=== PATIENT | female | born 2000 | race Caucasian/White ===

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

== ENCOUNTER → 2018-05-23 | Outpatient (CLI) | payer BC ==
[2018-05-23 16:23] LABS: BASO % 0.2 %; BASO ABS # 0.02 K/uL (0-0.2); EOS % 0.6 %; EOS ABS # 0.08 K/uL (0-0.5); HEMATOCRIT 36.1 % (37-47); HEMOGLOBIN 12.7 g/dL (12.0-16.0); IG# 0.06 K/uL (0.00-0.02); LYMPH ABS # 1.62 K/uL (1.2-3.4); MEAN CORPUSCULAR HEMOGLOBIN 30.6 pg (25-34); MEAN CORPUSCULAR HGB CONC 35.2 g/dl (32-36); MEAN PLATELET VOLUME 9.8 fL (7.4-10.4); MONO % 5.7 %; MONO ABS # 0.71 K/uL (0.11-0.59); NEUT ABS # 9.96 K/uL (1.4-6.5); PLATELET COUNT 315 K/uL (130-400); RED CELL DISTRIBUTION WIDTH CV 13.4 % (11.5-14.5); RED CELL DISTRIBUTION WIDTH SD 42.9 fL (36.4-46.3); WHITE BLOOD COUNT 12.45 K/uL (4.8-10.8)
== END | disposition home or self-care (01) ==
LOC: C.LAB1850 13:42
PROVIDERS: ATTEND Obstetrics & Gynecology
DX: Z34.02 Encounter for supervision of normal first pregnancy, second trimester (principal); N76.0 Acute vaginitis

== ENCOUNTER 2018-10-15 07:06 | Inpatient (IN) ==
[2018-10-15] MEDS ORDERED: LACTATED RINGER'S 1,000 ML IV PRN ×3 (08:29→11:23)
[2018-10-15] MEDS ORDERED: LACTATED RINGER'S 1,000 ML IV SCH ×2 (08:30→09:00)
[2018-10-15] MEDS ORDERED: OXYTOCIN 30 UNITS/500 ML BAG IV PRN ×2 (08:48→15:05)
[2018-10-15] MEDS ORDERED: PENICILLIN G POTASSIUM 6 MU in DEXTROSE 5% 250 ML IV STA (08:48)
[2018-10-15 08:52] LABS: Hematocrit (blood only) 37.5 % (37-47); Hemoglobin 13.2 g/dL (12.0-16.0); Mean Corpuscular Volume 87.8 fL (80-100); Mean Platelet Volume 10.9 fL (7.4-10.4); Platelet Count 287 K/uL (130-400); RDW Coefficient of Variation 13.5 % (11.5-14.5); Red Blood Count 4.27 M/uL (4.2-5.4); White Blood Count 11.15 K/uL (4.8-10.8)
[2018-10-15 08:53] LABS: Mean Corpuscular Hgb Conc 35.2 g/dL (32-36)
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
[2018-10-15] MEDS: NITROFURANTOIN MONOHYDRATE 100 MG CAP PO SCH ×2 (10:17→21:05)
[2018-10-15] MEDS ORDERED: BUPIVACAINE 0.25% 30 ML VIAL ONE (10:21)
[2018-10-15] MEDS ORDERED: ePHEDrine sulfate 50 MG/ML AMP ONE (10:22)
[2018-10-15] MEDS ORDERED: fentaNYL citrate 100 MCG/2 ML VIAL ONE (10:22)
[2018-10-15] MEDS ORDERED: fentaNYL 2MCG/ML ROPIV 1.25MG/ML 100 ML BAG EPI ONE (10:23)
[2018-10-15] MEDS ORDERED: NALOXONE HCL 1 MG in SODIUM CHLORIDE 0.9% 1000ML 1,000 ML IV PRN (11:23)
[2018-10-15] MEDS ORDERED: DiphenhydrAMINE HCL 50 MG/ML VIAL IV PRN (11:23)
[2018-10-15] MEDS ORDERED: NALOXONE HCL 0.4 MG/1 ML VIAL/CARP IV PRN (11:23)
[2018-10-15] MEDS ORDERED: ONDANSETRON INJ 2 MG/ML 2 ML VIAL IV PRN (11:23)
[2018-10-15] MEDS ORDERED: ePHEDrine sulfate 50 MG/ML AMP IV PRN (11:23)
[2018-10-15] MEDS ORDERED: NALBUPHINE HCL INJ 10 MG/ML AMP IV PRN (11:23)
[2018-10-15] MEDS ORDERED: fentaNYL 2MCG/ML ROPIV 1.25MG/ML 100 ML BAG EPI PRN (11:23)
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
[2018-10-15] MEDS ORDERED: PENICILLIN G POTASSIUM 3 MU in DEXTROSE 5% 100 ML IV PRN (13:00)
[2018-10-15] MEDS ORDERED: BENZOCAINE 20% AER SPR 82.5 GM CAN EXT PRN (15:05)
[2018-10-15] MEDS ORDERED: OXYCODONE/ACETAMINOPHEN 5mg/325mg TAB PO PRN (15:05)
[2018-10-15] MEDS ORDERED: HYDROCORTISONE ACETATE 25 MG SUPP PR PRN (15:05)
[2018-10-15] MEDS ORDERED: SUPERCREAM 0.870% 15 GM JAR EXT PRN (15:05)
[2018-10-15] MEDS ORDERED: DIPHTHERIA/TETANUS/PERTUSSIS 0.5 ML SYR/VIAL IM ONE (15:05)
[2018-10-15] MEDS ORDERED: ACETAMINOPHEN 325 MG TAB PO PRN (15:05)
--- NOTE | 2018-10-15 15:15 | Delivery Summary ---
DATE OF OPERATION: 10/15/2018 The patient presented to labor and delivery in the morning of October 15, 2017. At that stage she was 5 cm, received an epidural. The patient has had poor care and no recent group B strep done so the patient was started on antibiotics by Dr. Manning. She received an epidural and then spontaneously ruptured membranes on her own. She delivered without difficulty with the baby in occiput anterior position. Loose nuchal cord passed over the head, fluid was clear, no excessive forced used. Live infant, required some initial resuscitation but then vigorous. Cord had been clamped and cut. Cord gases obtained. Cord blood obtained. Placenta removed with traction. IV Pitocin started. Small first degree tear repaired with 3-0 Vicryl. Estimated blood loss 250 mL. Sponge and instrument counts correct. I attest to the content of the Intraoperative Record and any orders documented therein. Any exception s are noted below.
[2018-10-15 15:59] LABS: Base Excess Cord Arterial Bld -3.3 mEq/L (-9-1.8); CO2 Cord Arterial Blood 66 mmHg (39.1-73.5); HCO3 Cord Arterial Blood 27 mmol/L (19.7-28.5); pH Cord Arterial Blood 7.22 (7.1-7.38)
[2018-10-15 16:03] LABS: Base Excess Cord Venous Blood -2.9 mEq/L (-7.7-1.9); Cord Venous Blood HCO3 25 mmol/L (18.4-26.8); Cord Venous Blood PCO2 51 mmHg (30.4-57.2); Cord Venous Blood PO2 19 mmHg (14.1-43.3)
[2018-10-15 16:05] LABS: O2 Saturation Cord Venous Bld < 60.0 % (<68)
--- NOTE | 2018-10-15 16:29 | Anesthesia Procedure Note ---
Date of Service October 15, 2018 Anesthesia Post Epidural Note Vital Signs Vital Signs: Temp Pulse Resp BP Pulse Ox 10/15/18 16:19 88 142/90 H 10/15/18 16:04 75 142/84 H 10/15/18 15:49 64 151/83 H 10/15/18 15:35 73 143/81 H 10/15/18 15:04 75 142/95 H 10/15/18 14:54 103 H 135/96 100 10/15/18 14:49 101 H 92 10/15/18 14:44 80 80 L 10/15/18 14:40 82 92 10/15/18 14:39 77 100 10/15/18 14:34 93 H 100 10/15/18 14:29 83 100 10/15/18 14:25 124/72 10/15/18 14:24 81 99 10/15/18 14:23 79 86 L 10/15/18 14:19 80 100 10/15/18 14:15 37.2 C 20 10/15/18 14:14 76 100 10/15/18 14:10 79 123/73 10/15/18 14:09 88 85 L 10/15/18 14:04 81 100 10/15/18 13:59 80 100 10/15/18 13:54 76 137/85 98 10/15/18 13:49 75 100 10/15/18 13:45 20 10/15/18 13:44 72 100 10/15/18 13:41 72 143/87 H 10/15/18 13:39 76 135/106 H 100 10/15/18 13:34 78 100 10/15/18 13:29 83 20 100 10/15/18 13:25 86 110/89 10/15/18 13:24 86 100 10/15/18 13:19 83 100 10/15/18 13:15 20 10/15/18 13:14 85 100 10/15/18 13:09 88 126/79 100 10/15/18 13:04 82 100 10/15/18 12:59 92 H 20 100 10/15/18 12:54 77 136/86 100 10/15/18 12:49 77 100 10/15/18 12:45 20 10/15/18 12:44 86 100 10/15/18 12:39 75 136/88 100 10/15/18 12:34 83 100 10/15/18 12:30 20 10/15/18 12:29 86 100 10/15/18 12:26 76 140/85 10/15/18 12:24 74 100 10/15/18 12:19 80 100 10/15/18 12:15 36.5 C 20 10/15/18 12:14 72 100 10/15/18 12:10 89 91 10/15/18 12:09 80 128/83 100 10/15/18 12:04 70 100 10/15/18 12:00 20 10/15/18 11:59 86 20 100 10/15/18 11:54 75 100 10/15/18 11:52 72 126/76 10/15/18 11:50 86 130/73 10/15/18 11:49 72 100 10/15/18 11:48 70 136/85 10/15/18 11:46 75 129/83 10/15/18 11:45 20 10/15/18 11:44 70 130/81 100 10/15/18 11:42 71 138/81 10/15/18 11:40 68 126/69 10/15/18 11:39 70 100 10/15/18 11:38 62 135/69 10/15/18 11:36 61 138/71 10/15/18 11:34 77 148/71 H 100 10/15/18 11:32 71 144/81 H 10/15/18 11:30 86 20 137/78 10/15/18 11:29 80 100 10/15/18 11:28 50 L 136/83 10/15/18 11:26 88 134/78 10/15/18 11:24 82 135/73 99 10/15/18 11:22 90 124/74 10/15/18 11:20 75 127/70 10/15/18 11:19 83 100 10/15/18 11:18 77 123/73 10/15/18 11:16 75 130/74 10/15/18 11:15 20 10/15/18 11:14 83 123/66 100 10/15/18 11:09 77 100 10/15/18 11:04 91 H 100 10/15/18 10:59 97 H 100 10/15/18 10:54 76 100 10/15/18 10:50 74 139/90 10/15/18 07:20 36.5 C 72 20 134/88 Notes Mental Status: alert / awake / arousable Nausea / Vomiting: adequately controlled Pain: adequately controlled Airway Patency, RR, SpO2: stable & adequate BP & HR: stable & adequate Hydration State: stable & adequate Anesthetic Complications: no major complications apparent Epidural: Removed without complications and With tip intact
[2018-10-15] MEDS: DOCUSATE SODIUM 100 MG CAP PO SCH (22:21)
[2018-10-15] MEDS: IBUPROFEN 600 MG TAB PO PRN (23:24)
--- NOTE | 2018-10-16 07:35 | Obstetrical Progress Note ---
Date of Service October 16, 2018 day #1 vaginal delivery patient doing well minimal bleeding no pain beyond the typical pains no extremity pain Assessment & Plan (1) Normal labor: Continue current care Physical Exam Vital Signs (Past 24 Hours) Last Vital Signs Temp 36.5 C 10/16/18 04:50 Pulse 75 10/16/18 04:50 Resp 20 10/16/18 04:50 BP 136/82 10/16/18 04:50 Pulse Ox 100 10/16/18 04:50 Uterus nontender extremity exam negative minimal bleeding uterus firm
[2018-10-16 08:08] LABS: Hematocrit (blood only) 35.1 % (37-47); Hemoglobin 11.7 g/dL (12.0-16.0); Mean Corpuscular Hgb Conc 33.3 g/dL (32-36); Mean Corpuscular Volume 88.4 fL (80-100); Mean Platelet Volume 10.8 fL (7.4-10.4); Platelet Count 228 K/uL (130-400); RDW Coefficient of Variation 13.7 % (11.5-14.5); RDW Standard Deviation 44.3 fL (36.4-46.3); Red Blood Count 3.97 M/uL (4.2-5.4)
[2018-10-16] MEDS: PRENATAL VITAMIN 1 TAB PO SCH (09:23)
[2018-10-16] MEDS: NITROFURANTOIN MONOHYDRATE 100 MG CAP PO SCH ×2 (09:23→20:20)
[2018-10-16] MEDS: DOCUSATE SODIUM 100 MG CAP PO SCH ×2 (09:23→20:20)
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
[2018-10-16] MEDS ORDERED: BISACODYL 5 MG TABEC PO SCH (20:00)
[2018-10-16] MEDS: IBUPROFEN 600 MG TAB PO PRN (20:20)
[2018-10-16] MEDS ORDERED: risperiDONE 1 MG TABLET PO SCH (21:00)
[2018-10-17 07:20] LABS: Hemoglobin 11.5 g/dL (12.0-16.0)
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
[2018-10-17] MEDS ORDERED: BISACODYL 10 MG SUPP PR PRN (09:00)
[2018-10-17] MEDS: PRENATAL VITAMIN 1 TAB PO SCH (09:19)
[2018-10-17] MEDS: DOCUSATE SODIUM 100 MG CAP PO SCH (09:19)
[2018-10-17] MEDS: NITROFURANTOIN MONOHYDRATE 100 MG CAP PO SCH (09:40)
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
[2018-10-17] MEDS: IBUPROFEN 600 MG TAB PO PRN (16:26)
== END 2018-10-17 18:35 | disposition home or self-care (01) | DRG 806 ==
LOC: OPB 07:06 → 4S1 07:11 → 4S2 18:06

== ENCOUNTER 2018-10-23 15:46 | Observation (INO) ==
[2018-10-23 17:18] LABS: Basophils # (auto) 0.06 K/uL (0-0.2); Basophils % (auto) 0.6 %; Eosinophils # (auto) 0.21 K/uL (0-0.5); Eosinophils % (auto) 2.1 %; Hematocrit (blood only) 42.4 % (37-47); Hemoglobin 14.6 g/dL (12.0-16.0); Immature Granulocytes # (auto) 0.05 K/uL (0.00-0.02); Immature Granulocytes % (auto) 0.5 %; Lymphocytes # (auto) 2.27 K/uL (1.2-3.4); Lymphocytes % (auto) 22.5 %; Mean Corpuscular Hgb Conc 34.4 g/dL (32-36); Mean Corpuscular Volume 89.1 fL (80-100); Mean Platelet Volume 9.9 fL (7.4-10.4); Monocytes # (auto) 0.76 K/uL (0.11-0.59); Monocytes % (auto) 7.5 %; Neutrophils # (auto) 6.75 K/uL (1.4-6.5); Neutrophils % (auto) 66.8 %; Platelet Count 454 K/uL (130-400); RDW Coefficient of Variation 13.1 % (11.5-14.5); RDW Standard Deviation 42.8 fL (36.4-46.3); Red Blood Count 4.76 M/uL (4.2-5.4)
[2018-10-23 17:39] LABS: Albumin Level 3.5 gm/dl (3.4-5.0); BUN Creatinine Ratio 14.4 (10-20); Calcium 9.7 mg/dl (8.5-10.1); Creatinine Clr Calc Pharmacy 106.4 ml/min; Est GFR (African American) 119.4; Potassium 3.8 mmol/L (3.5-5.1)
[2018-10-23 17:44] LABS: Acetaminophen < 2 ug/ml (10-30); Salicylate < 1.7 mg/dl (2.8-20)
[2018-10-23 17:48] LABS: Albumin Globulin Ratio 0.6 (0.9-2); Bilirubin,Total 0.3 mg/dl (0.2-1); Globulin 5.5 gm/dl (2.5-4.0)
[2018-10-23 18:10] LABS: Appearance Urine Clear (Clear); Bacteria Urine Automated Negative (Negative); Bilirubin Urine Negative (Negative); Color Urine Yellow; Epithelial Cell Urine Auto 20-30 /lpf (0-5); Glucose Urine UA Negative (Negative); Ketones Urine Negative (Negative); Leukocyte Esterase Urine 2+ (Negative); Nitrite Urine Negative (Negative); Protein Urine Negative (Negative); Specific Gravity Urine 1.016 (1.000-1.030); Urobilinogen Urine Negative (Negative); pH Urine 5.5 (4.5-7.5)
[2018-10-23 18:48] LABS: Amphetamines+Metham, Urine Neg (Neg); Barbiturates, Urine Neg (Neg); Benzodiazepine, Urine Neg (Neg); Cocaine, Urine Neg (Neg); MDMA (Ecstacy), Urine Neg (Neg); Methadone, Urine Neg (Neg); Opiate, Urine Neg (Neg); Phencyclidine, Urine Neg (Neg)
--- NOTE | 2018-10-23 20:01 | Emergency Department Note ---
Entered by Hans Mccullough acting as a scribe for Laura Sparrow DO History of Present Illness General Chief complaint: Mental Health Evaluation Stated complaint: MENTAL HEALTH EVAL Time Seen by Provider: 10/23/18 15:54 Source: patient and other (nursing staff) History of Present Illness Onset (ago): day(s) (self-harm sometime after last visit a few days ago) Location: head (psychiatric) Quality: + other (psychosis and self-harm) Associated symptoms: + other (gave 4-5 days ago; history of schizoaffective disorder; hitting herself and pulling out hair); no headaches The patient is a 18 year old female with schizoaffective disorder who presents to the Emergency Room with psychosis and self-harm. Nursing staff report that the patient was seen here last week on a 302 order, but the 302 was denied and she was sent home. They state that the patient recently gave and is now four or five days . They report that she is now hitting herself and pulling out her hair, stating that she cannot finish sentences and appears to be responding to internal stimuli. They note that the patient was not harming herself a few days ago. The patient reports that she is still experiencing bleeding from recently giving but denies cramping or other pain. She does admit to hitting herself on the head, denies LOC, and she reports some numbness but denies a headache. Home Medications Home Medications Medication Instructions Recorded Confirmed Type No Known Home Medications 10/23/18 10/23/18 History Allergies Allergy/AdvReac Type Severity Reaction Status Date / Time No Known Allergies Allergy Verified 10/23/18 21:25 Past Med/Surg History Social History marital status: Single Current Living Situation: Significant Other Current Living Situation Comment: FOB, FOB's mom and FOB's 2 brothers Other Information That Helps Us Care for You: Yes (psych history) Feels Safe at Home: No Is there a partner from a previous relationship who is making you feel unsafe now?: No Smoking Status: Unknown if ever smoked Beliefs That Will Affect Care: None Communication Ability: Effective Review of Systems See HPI for pertinent positives & negatives. and A total of 10 systems reviewed and were otherwise negative Physical Exam Vital Signs Vital Signs - 24 hr 10/24/18 07:23 10/24/18 15:18 10/25/18 00:00 Temperature 36.4 C L 36.7 C 36.7 C Temperature Source Oral Oral Oral Pulse Rate [Finger] 60 100 H 72 Respiratory Rate 16 19 18 Respiratory Depth Normal Normal Blood Pressure [Right Arm] 102/62 107/66 91/50 L Blood Pressure Mean [Right Arm] 75 79 63 Blood Pressure Position [Right Arm] Lying Lying Lying Pulse Oximetry 98 97 97 Oxygen Delivery Method Room Air Room Air Room Air GENERAL: tearful, flat affect, poor eye contact EYE EXAM: normal conjunctiva, PERRL and EOM's grossly intact OROPHARYNX: no exudate, no erythema, lips, buccal mucosa, and tongue normal and mucous membranes are moist NECK: supple, no nuchal rigidity, no adenopathy, non-tender LUNGS: Clear to auscultation. Normal chest wall mechanics, no w/r/r HEART: no murmurs, S1 normal and S2 normal ABDOMEN: abdomen soft, non-tender, normo-active bowel sounds, no masses, no rebound or guarding. BACK: Back is symmetrical on inspection and there is no deformity, no midline tenderness, no CVA tenderness. SKIN: no rashes and no bruising UPPER EXTREMITIES: upper extremities are grossly normal. LOWER EXTREMITIES: No pitting edema. FROM, nml pulses b/l. NEURO EXAM: Normal sensorium, cranial nerves II-XII grossly intact, normal speech, no gross weakness of arms, no gross weakness of legs. No drift. Finger to nose intact. Gross sensation intact. PSYCH: Tearful, flat affect, poor eye contact. Admits to thoughts of hurting herself. Denies thoughts of hurting her baby or anyone else. Admits to paranoia. Denies hallucinations. Course 155: Past medical records reviewed. The patient was evaluated in room A8, and a complete history and physical examination were performed. 2029: The patient's 302 has been completed. 2115: I discussed the patient's case with Dr. Autumn Bob OB-PHONE SPECIALIST. Agrees doesn't appear to be eclampsia, however LFT's are still elevated than would be expected post . 2139: Discussed case with Dr. Curtis, not in any hospitalist. Consultations Consultation #1: I consulted Dr. Autumn Vasquezy OB-PHONE SPECIALIST. Time: 21:16 Consultation #2: Discussed with Dr. Curtis. Time: 21:40 Administered Medications Enoxaparin Sodium (Lovenox) 40 mg SQ Q24H HENRIK Stop: 11/23/18 08:59 Last Admin: 10/24/18 11:46 Dose: Not Given Risperidone (Risperdal) 1 mg PO HS HENRIK Stop: 11/23/18 20:59 Last Admin: 10/24/18 20:07 Dose: 1 mg Risperidone (Risperdal M) 0.5 mg PO QAM HENRIK Stop: 11/23/18 11:14 Last Admin: 10/24/18 11:41 Dose: 0.5 mg Discontinued Medications Acetaminophen (Tylenol) Confirm Administered Dose 650 mg .ROUTE .STK-MED ONE Stop: 10/23/18 23:12 Last Admin: 10/23/18 23:17 Dose: 650 mg Influenza Virus Vaccine Quadrival (Flucelvax Quad Vaccine) 0.5 ml IM .ONCE ONE Stop: 10/24/18 06:46 Last Admin: 10/24/18 13:26 Dose: 0.5 ml Medroxyprogesterone Acetate (Depo-Provera Contraceptive) 150 mg IM NOW ONE Stop: 10/24/18 11:31 Last Admin: 10/24/18 11:44 Dose: 150 mg Medical Decision Making Differential Diagnosis Differential diagnosis: Etiologies such as mood disorder, infection, hypoglycemia, electrolyte abnormalities, cardiac sources, intracerebral event, toxicologic, neurologic, as well as others were entertained. Medical Records Attestation: I reviewed the patient's medical records. Home Medications Current Medication List: was personally reviewed by me Laboratory Data Attestation: I reviewed the patient's lab results. Result diagrams: 10/24/18 07:18 10/24/18 07:18 Lab Results 10/23/18 10/23/18 10/23/18 Range/Units 16:39 16:39 16:39 WBC 10.10 (4.8-10.8) K/uL RBC 4.76 (4.2-5.4) M/uL Hgb 14.6 (12.0-16.0) g/dL Hct 42.4 (37-47) % MCV 89.1 (80-100) fL MCH 30.7 (25-34) pg MCHC 34.4 (32-36) g/dL RDW Std Deviation 42.8 (36.4-46.3) fL RDW Coeff of Marlyn 13.1 (11.5-14.5) % Plt Count 454 H (130-400) K/uL MPV 9.9 (7.4-10.4) fL Immature Gran % (Auto) 0.5 % Neut % (Auto) 66.8 % Lymph % (Auto) 22.5 % Cassia % (Auto) 7.5 % Eos % (Auto) 2.1 % Baso % (Auto) 0.6 % Immature Gran # (Auto) 0.05 H (0.00-0.02) K/uL Neut # (Auto) 6.75 H (1.4-6.5) K/uL Lymph # (Auto) 2.27 (1.2-3.4) K/uL Cassia # (Auto) 0.76 H (0.11-0.59) K/uL Eos # (Auto) 0.21 (0-0.5) K/uL Baso # (Auto) 0.06 (0-0.2) K/uL PT (9.0-12.0) Seconds INR (0.9-1.1) Sodium 136 (136-145) mmol/L Potassium 3.8 (3.5-5.1) mmol/L Chloride 103 (98-107) mmol/L Carbon Dioxide 23 (21-32) mmol/L Anion Gap 10.0 (3-11) BUN 12 (7-18) mg/dl Creatinine 0.82 (0.6-1.2) mg/dl Est Cr Clr Drug Dosing 106.4 ml/min Est GFR ( Amer) 119.4 Est GFR (Non-Af Amer) 103.0 BUN/Creatinine Ratio 14.4 (10-20) Glucose 75 (70-99) mg/dl Calcium 9.7 (8.5-10.1) mg/dl Phosphorus (2.5-4.9) mg/dl Magnesium (1.8-2.4) mg/dl Total Bilirubin 0.3 (0.2-1) mg/dl Direct Bilirubin (0-0.2) mg/dl AST 82 H (15-37) U/L ALT 558 H (12-78) U/L Alkaline Phosphatase 203 H (45-117) U/L Ammonia (11-32) umol/L Total Protein 9.0 H (6.4-8.2) gm/dl Albumin 3.5 (3.4-5.0) gm/dl Globulin 5.5 H (2.5-4.0) gm/dl Albumin/Globulin Ratio 0.6 L (0.9-2) TSH 1.220 (0.300-4.500) uIu/ml Urine Color Urine Appearance (Clear) Urine pH (4.5-7.5) Ur Specific Chandler (1.000-1.030) Urine Protein (Negative) Urine Glucose (UA) (Negative) Urine Ketones (Negative) Urine Blood (Negative) Urine Nitrite (Negative) Urine Bilirubin (Negative) Urine Urobilinogen (Negative) Ur Leukocyte Esterase (Negative) Urine WBC (Auto) (0-5) /hpf Urine RBC (Auto) (0-4) /hpf U Hyaline Cast (Auto) (0-5) /lpf U Epithel Cells (Auto) (0-5) /lpf Urine Bacteria (Auto) (Negative) POC Ur Test (NEG) Salicylates < 1.7 L (2.8-20) mg/dl Urine Opiates Screen (Neg) Ur Methadone, Qual (Neg) Acetaminophen < 2 L (10-30) ug/ml Urine Barbiturates (Neg) Ur Phencyclidine (PCP) (Neg) U Amphetamin/Meth Scrn (Neg) MDMA (Ecstasy) Screen (Neg) U Benzodiazepines Scrn (Neg) Ur Cocaine Metabolite (Neg) U Marijuana (THC) Screen (Neg) Ethyl Alcohol mg/dL (0-3) mg/dl Hepatitis A IgM Ab (NON-REACTIVE) Hep Bs Antigen (Neg) Hep B Core IgM Ab (NON-REACTIVE) Hepatitis C Antibody (Neg) 10/23/18 10/23/18 10/23/18 Range/Units 16:39 17:45 17:45 WBC (4.8-10.8) K/uL RBC (4.2-5.4) M/uL Hgb (12.0-16.0) g/dL Hct (37-47) % MCV (80-100) fL MCH (25-34) pg MCHC (32-36) g/dL RDW Std Deviation (36.4-46.3) fL RDW Coeff of Marlyn (11.5-14.5) % Plt Count (130-400) K/uL MPV (7.4-10.4) fL Immature Gran % (Auto) % Neut % (Auto) % Lymph % (Auto) % Cassia % (Auto) % Eos % (Auto) % Baso % (Auto) % Immature Gran # (Auto) (0.00-0.02) K/uL Neut # (Auto) (1.4-6.5) K/uL Lymph # (Auto) (1.2-3.4) K/uL Cassia # (Auto) (0.11-0.59) K/uL Eos # (Auto) (0-0.5) K/uL Baso # (Auto) (0-0.2) K/uL PT (9.0-12.0) Seconds INR (0.9-1.1) Sodium (136-145) mmol/L Potassium (3.5-5.1) mmol/L Chloride (98-107) mmol/L Carbon Dioxide (21-32) mmol/L Anion Gap (3-11) BUN (7-18) mg/dl Creatinine (0.6-1.2) mg/dl Est Cr Clr Drug Dosing ml/min Est GFR ( Amer) Est GFR (Non-Af Amer) BUN/Creatinine Ratio (10-20) Glucose (70-99) mg/dl Calcium (8.5-10.1) mg/dl Phosphorus (2.5-4.9) mg/dl Magnesium (1.8-2.4) mg/dl Total Bilirubin (0.2-1) mg/dl Direct Bilirubin (0-0.2) mg/dl AST (15-37) U/L ALT (12-78) U/L Alkaline Phosphatase (45-117) U/L Ammonia (11-32) umol/L Total Protein (6.4-8.2) gm/dl Albumin (3.4-5.0) gm/dl Globulin (2.5-4.0) gm/dl Albumin/Globulin Ratio (0.9-2) TSH (0.300-4.500) uIu/ml Urine Color Yellow Urine Appearance Clear (Clear) Urine pH 5.5 (4.5-7.5) Ur Specific Chandler 1.016 (1.000-1.030) Urine Protein Negative (Negative) Urine Glucose (UA) Negative (Negative) Urine Ketones Negative (Negative) Urine Blood 2+ H (Negative) Urine Nitrite Negative (Negative) Urine Bilirubin Negative (Negative) Urine Urobilinogen Negative (Negative) Ur Leukocyte Esterase 2+ H (Negative) Urine WBC (Auto) 10-30 H (0-5) /hpf Urine RBC (Auto) 0-4 (0-4) /hpf U Hyaline Cast (Auto) 1-5 (0-5) /lpf U Epithel Cells (Auto) 20-30 H (0-5) /lpf Urine Bacteria (Auto) Negative (Negative) POC Ur Test (NEG) Salicylates (2.8-20) mg/dl Urine Opiates Screen Neg (Neg) Ur Methadone, Qual Neg (Neg) Acetaminophen (10-30) ug/ml Urine Barbiturates Neg (Neg) Ur Phencyclidine (PCP) Neg (Neg) U Amphetamin/Meth Scrn Neg (Neg) MDMA (Ecstasy) Screen Neg (Neg) U Benzodiazepines Scrn Neg (Neg) Ur Cocaine Metabolite Neg (Neg) U Marijuana (THC) Screen Neg (Neg) Ethyl Alcohol mg/dL < 3.0 (0-3) mg/dl Hepatitis A IgM Ab (NON-REACTIVE) Hep Bs Antigen (Neg) Hep B Core IgM Ab (NON-REACTIVE) Hepatitis C Antibody (Neg) 10/23/18 10/23/18 10/23/18 Range/Units 17:52 23:06 23:06 WBC (4.8-10.8) K/uL RBC (4.2-5.4) M/uL Hgb (12.0-16.0) g/dL Hct (37-47) % MCV (80-100) fL MCH (25-34) pg MCHC (32-36) g/dL RDW Std Deviation (36.4-46.3) fL RDW Coeff of Marlyn (11.5-14.5) % Plt Count (130-400) K/uL MPV (7.4-10.4) fL Immature Gran % (Auto) % Neut % (Auto) % Lymph % (Auto) % Cassia % (Auto) % Eos % (Auto) % Baso % (Auto) % Immature Gran # (Auto) (0.00-0.02) K/uL Neut # (Auto) (1.4-6.5) K/uL Lymph # (Auto) (1.2-3.4) K/uL Cassia # (Auto) (0.11-0.59) K/uL Eos # (Auto) (0-0.5) K/uL Baso # (Auto) (0-0.2) K/uL PT (9.0-12.0) Seconds INR (0.9-1.1) Sodium (136-145) mmol/L Potassium (3.5-5.1) mmol/L Chloride (98-107) mmol/L Carbon Dioxide (21-32) mmol/L Anion Gap (3-11) BUN (7-18) mg/dl Creatinine (0.6-1.2) mg/dl Est Cr Clr Drug Dosing ml/min Est GFR ( Amer) Est GFR (Non-Af Amer) BUN/Creatinine Ratio (10-20) Glucose (70-99) mg/dl Calcium (8.5-10.1) mg/dl Phosphorus (2.5-4.9) mg/dl Magnesium (1.8-2.4) mg/dl Total Bilirubin (0.2-1) mg/dl Direct Bilirubin (0-0.2) mg/dl AST (15-37) U/L ALT (12-78) U/L Alkaline Phosphatase (45-117) U/L Ammonia (11-32) umol/L Total Protein (6.4-8.2) gm/dl Albumin (3.4-5.0) gm/dl Globulin (2.5-4.0) gm/dl Albumin/Globulin Ratio (0.9-2) TSH (0.300-4.500) uIu/ml Urine Color Urine Appearance (Clear) Urine pH (4.5-7.5) Ur Specific Chandler (1.000-1.030) Urine Protein (Negative) Urine Glucose (UA) (Negative) Urine Ketones (Negative) Urine Blood (Negative) Urine Nitrite (Negative) Urine Bilirubin (Negative) Urine Urobilinogen (Negative) Ur Leukocyte Esterase (Negative) Urine WBC (Auto) (0-5) /hpf Urine RBC (Auto) (0-4) /hpf U Hyaline Cast (Auto) (0-5) /lpf U Epithel Cells (Auto) (0-5) /lpf Urine Bacteria (Auto) (Negative) POC Ur Test NEG (NEG) Salicylates (2.8-20) mg/dl Urine Opiates Screen (Neg) Ur Methadone, Qual (Neg) Acetaminophen (10-30) ug/ml Urine Barbiturates (Neg) Ur Phencyclidine (PCP) (Neg) U Amphetamin/Meth Scrn (Neg) MDMA (Ecstasy) Screen (Neg) U Benzodiazepines Scrn (Neg) Ur Cocaine Metabolite (Neg) U Marijuana (THC) Screen (Neg) Ethyl Alcohol mg/dL (0-3) mg/dl Hepatitis A IgM Ab NON-REACTIVE (NON-REACTIVE) Hep Bs Antigen Neg (Neg) Hep B Core IgM Ab NON-REACTIVE (NON-REACTIVE) Hepatitis C Antibody Neg (Neg) 10/24/18 10/24/18 10/24/18 Range/Units 07:18 07:18 07:18 WBC 7.98 (4.8-10.8) K/uL RBC 4.23 (4.2-5.4) M/uL Hgb 12.6 (12.0-16.0) g/dL Hct 37.2 (37-47) % MCV 87.9 (80-100) fL MCH 29.8 (25-34) pg MCHC 33.9 (32-36) g/dL RDW Std Deviation 42.2 (36.4-46.3) fL RDW Coeff of Marlyn 13.1 (11.5-14.5) % Plt Count 350 (130-400) K/uL MPV 9.8 (7.4-10.4) fL Immature Gran % (Auto) 0.8 % Neut % (Auto) 53.7 % Lymph % (Auto) 33.3 % Cassia % (Auto) 8.0 % Eos % (Auto) 3.6 % Baso % (Auto) 0.6 % Immature Gran # (Auto) 0.06 H (0.00-0.02) K/uL Neut # (Auto) 4.28 (1.4-6.5) K/uL Lymph # (Auto) 2.66 (1.2-3.4) K/uL Cassia # (Auto) 0.64 H (0.11-0.59) K/uL Eos # (Auto) 0.29 (0-0.5) K/uL Baso # (Auto) 0.05 (0-0.2) K/uL PT 10.5 (9.0-12.0) Seconds INR 1.0 (0.9-1.1) Sodium 136 (136-145) mmol/L Potassium 3.6 (3.5-5.1) mmol/L Chloride 105 (98-107) mmol/L Carbon Dioxide 24 (21-32) mmol/L Anion Gap 7.0 (3-11) BUN 9 (7-18) mg/dl Creatinine 0.79 (0.6-1.2) mg/dl Est Cr Clr Drug Dosing 110.3 ml/min Est GFR ( Amer) 124.9 Est GFR (Non-Af Amer) 107.8 BUN/Creatinine Ratio 11.4 (10-20) Glucose 78 (70-99) mg/dl Calcium 9.0 (8.5-10.1) mg/dl Phosphorus 4.1 (2.5-4.9) mg/dl Magnesium 1.9 (1.8-2.4) mg/dl Total Bilirubin 0.6 (0.2-1) mg/dl Direct Bilirubin 0.2 (0-0.2) mg/dl AST 56 H (15-37) U/L ALT 395 H (12-78) U/L Alkaline Phosphatase 162 H (45-117) U/L Ammonia (11-32) umol/L Total Protein 7.7 (6.4-8.2) gm/dl Albumin 3.0 L (3.4-5.0) gm/dl Globulin (2.5-4.0) gm/dl Albumin/Globulin Ratio (0.9-2) TSH (0.300-4.500) uIu/ml Urine Color Urine Appearance (Clear) Urine pH (4.5-7.5) Ur Specific Chandler (1.000-1.030) Urine Protein (Negative) Urine Glucose (UA) (Negative) Urine Ketones (Negative) Urine Blood (Negative) Urine Nitrite (Negative) Urine Bilirubin (Negative) Urine Urobilinogen (Negative) Ur Leukocyte Esterase (Negative) Urine WBC (Auto) (0-5) /hpf Urine RBC (Auto) (0-4) /hpf U Hyaline Cast (Auto) (0-5) /lpf U Epithel Cells (Auto) (0-5) /lpf Urine Bacteria (Auto) (Negative) POC Ur Test (NEG) Salicylates (2.8-20) mg/dl Urine Opiates Screen (Neg) Ur Methadone, Qual (Neg) Acetaminophen (10-30) ug/ml Urine Barbiturates (Neg) Ur Phencyclidine (PCP) (Neg) U Amphetamin/Meth Scrn (Neg) MDMA (Ecstasy) Screen (Neg) U Benzodiazepines Scrn (Neg) Ur Cocaine Metabolite (Neg) U Marijuana (THC) Screen (Neg) Ethyl Alcohol mg/dL (0-3) mg/dl Hepatitis A IgM Ab (NON-REACTIVE) Hep Bs Antigen (Neg) Hep B Core IgM Ab (NON-REACTIVE) Hepatitis C Antibody (Neg) 10/24/18 10/24/18 Range/Units 07:18 14:53 WBC (4.8-10.8) K/uL RBC (4.2-5.4) M/uL Hgb (12.0-16.0) g/dL Hct (37-47) % MCV (80-100) fL MCH (25-34) pg MCHC (32-36) g/dL RDW Std Deviation (36.4-46.3) fL RDW Coeff of Marlyn (11.5-14.5) % Plt Count (130-400) K/uL MPV (7.4-10.4) fL Immature Gran % (Auto) % Neut % (Auto) % Lymph % (Auto) % Cassia % (Auto) % Eos % (Auto) % Baso % (Auto) % Immature Gran # (Auto) (0.00-0.02) K/uL Neut # (Auto) (1.4-6.5) K/uL Lymph # (Auto) (1.2-3.4) K/uL Cassia # (Auto) (0.11-0.59) K/uL Eos # (Auto) (0-0.5) K/uL Baso # (Auto) (0-0.2) K/uL PT (9.0-12.0) Seconds INR (0.9-1.1) Sodium (136-145) mmol/L Potassium (3.5-5.1) mmol/L Chloride (98-107) mmol/L Carbon Dioxide (21-32) mmol/L Anion Gap (3-11) BUN (7-18) mg/dl Creatinine (0.6-1.2) mg/dl Est Cr Clr Drug Dosing ml/min Est GFR ( Amer) Est GFR (Non-Af Amer) BUN/Creatinine Ratio (10-20) Glucose (70-99) mg/dl Calcium (8.5-10.1) mg/dl Phosphorus (2.5-4.9) mg/dl Magnesium (1.8-2.4) mg/dl Total Bilirubin 0.3 (0.2-1) mg/dl Direct Bilirubin 0.1 (0-0.2) mg/dl AST 51 H (15-37) U/L ALT 382 H (12-78) U/L Alkaline Phosphatase 172 H (45-117) U/L Ammonia 14.4 (11-32) umol/L Total Protein 8.3 H (6.4-8.2) gm/dl Albumin 3.2 L (3.4-5.0) gm/dl Globulin (2.5-4.0) gm/dl Albumin/Globulin Ratio (0.9-2) TSH (0.300-4.500) uIu/ml Urine Color Urine Appearance (Clear) Urine pH (4.5-7.5) Ur Specific Chandler (1.000-1.030) Urine Protein (Negative) Urine Glucose (UA) (Negative) Urine Ketones (Negative) Urine Blood (Negative) Urine Nitrite (Negative) Urine Bilirubin (Negative) Urine Urobilinogen (Negative) Ur Leukocyte Esterase (Negative) Urine WBC (Auto) (0-5) /hpf Urine RBC (Auto) (0-4) /hpf U Hyaline Cast (Auto) (0-5) /lpf U Epithel Cells (Auto) (0-5) /lpf Urine Bacteria (Auto) (Negative) POC Ur Test (NEG) Salicylates (2.8-20) mg/dl Urine Opiates Screen (Neg) Ur Methadone, Qual (Neg) Acetaminophen (10-30) ug/ml Urine Barbiturates (Neg) Ur Phencyclidine (PCP) (Neg) U Amphetamin/Meth Scrn (Neg) MDMA (Ecstasy) Screen (Neg) U Benzodiazepines Scrn (Neg) Ur Cocaine Metabolite (Neg) U Marijuana (THC) Screen (Neg) Ethyl Alcohol mg/dL (0-3) mg/dl Hepatitis A IgM Ab (NON-REACTIVE) Hep Bs Antigen (Neg) Hep B Core IgM Ab (NON-REACTIVE) Hepatitis C Antibody (Neg) Imaging Data Radiologist's Impression: Radiology results as stated below per my review and the radiologist's interpretation: CT head/brain wo con CLINICAL HISTORY: Head injury. PAIN COMPARISON STUDY: 10/06/2018 TECHNIQUE: Axial CT of the brain is performed from the vertex to the skull base. IV contrast was not administered for this examination. A dose lowering technique was utilized adhering to the principles of ALARA. CT DOSE: 1277.12 mGycm FINDINGS: No intra or extra-axial mass lesions are visualized. There is no CT evidence of acute cortical infarction. There is no evidence of midline shift. There is no acute hemorrhage. No calvarial fractures are visualized. There is no evidence of pathologic ventricular dilatation. There is no evidence of acute sinusitis IMPRESSION: Normal noncontrast head CT. Electronically signed by: Valerio Nava M.D. 10/23/2018 8:35 PM Blood Pressure Blood Pressure Findings: Normal blood pressure Blood Pressure Disposition: did not require urgent referral MDM Narrative Patient presenting here today due to concern for mental illness and need for possible placement. Patient's labs from several days ago reviewed, however due to concern for inpatient psychiatric admission, repeat labs were obtained. We continue to pursue psychiatric evaluation. Patient's child is safe in the custody of other family members and was not present with her. Patient could not understand questions being asked her and so a 302 was pursued instead of a 201. Patient's family verbalized understanding of this. While filling out this paperwork I did review the labs that were obtained this evening and noted that her LFTs were markedly higher compared to any prior levels in the EMR. Patient had no hypertension here, no lower extremity edema, no complaints of headache, and CBC normal with improved H&H and mildly elevated platelets. This would go against a diagnosis of preeclampsia or HELLP syndrome. Given recent state though, case discussed with PATTERN ATTENDANT as a precaution who shared my concern. Upon additional discussion and evaluation as well as the review of outpatient records recently while , we agreed patient may be best served being admitted medically instead of psychiatrically. They felt patient should be admitted to medicine however they would consult as a precaution. I discussed the case with the hospitalist who agreed to admit the patient. OB/ PHONE SPECIALIST will consult, will place a psychiatric consult also. Patient was hemodynamically stable throughout. Patient and family were made aware of results were in agreement with plan. Impression & Plan Schizoaffective disorder, Self-harm, Abnormal LFTs Discharge Plan Visit Data *Final* Discharge Date/Time: 10/23/18 23:45 Chief Complaint: Mental Health Evaluation Stated Complaint: MENTAL HEALTH EVAL ED Provider: Laura Sparrow Discharge Problem: Schizoaffective disorder, Self-harm, Abnormal LFTs Patient Disposition: Admitted As Inpatient Discharge Instructions Interventions: ED Discharge Assessment Last Done: 10/23/18 23:45 The scribe's documentation has been prepared under my direction and personally reviewed by me in its entirety. I confirm that the note above accurately reflects all work, treatment, procedures, and medical decision making performed by me.
--- NOTE | 2018-10-23 20:37 | CT Scan Report ---
CT head/brain wo con CLINICAL HISTORY: Head injury. PAIN COMPARISON STUDY: 10/06/2018 TECHNIQUE: Axial CT of the brain is performed from the vertex to the skull base. IV contrast was not administered for this examination. A dose lowering technique was utilized adhering to the principles of ALARA. CT DOSE: 1277.12 mGycm FINDINGS: No intra or extra-axial mass lesions are visualized. There is no CT evidence of acute cortical infarc tion. There is no evidence of midline shift. There is no acute hemorrhage. No calvarial fractures ar e visualized. There is no evidence of pathologic ventricular dilatation. There is no evidence of acute sinusitis IMPRESSION: Normal noncontrast head CT. Electronically signed by: Valerio Nava M.D. 10/23/2018 8:35 PM
--- NOTE | 2018-10-23 22:39 | Ultrasound Report ---
BILIARY ULTRASOUND CLINICAL HISTORY: Abnormal LFTs COMPARISON STUDY: 08/11/2018 FINDINGS: The liver appears sonographically normal. Pancreas appears sonographically normal. There is no ductal dilatation. The common bile duct measures 5 mm. There is no right-sided hydronephrosis. Sh adowing gallbladder calculi are visualized. There is no gallbladder wall thickening. There is no trudy cholecystic fluid. IMPRESSION: 1. Cholelithiasis. No evidence of ductal dilatation. 2. Ultrasonographically normal pancreas and liver Electronically signed by: Valerio Nava M.D. 10/23/2018 10:38 PM
[2018-10-23] MEDS ORDERED: ACETAMINOPHEN 325 MG TAB ONE (23:11)
[2018-10-23] MEDS ORDERED: ACETAMINOPHEN 325 MG TAB PO PRN (23:49)
[2018-10-24 00:03] LABS: Hepatitis B Surface Antigen Neg (Neg)
--- NOTE | 2018-10-24 00:06 | History & Physical Report ---
Date of Service October 23, 2018 Assessment & Plan (1) Abnormal LFTs: MEB=001, AST=82, TY=301. Patient with normal Tylenol and EtOH levels. Acute Hepatitis panel pending. Other parameters for Pre-eclampsia unremarkable - platelets high, BP WNL, no proteinuria, no edema. Patient is complaining of some visual changes. RUQUS with gallstones otherwise unremarkable, no ductal dilation. Sonographically normal liver without fatty infiltrate. ?Risperidone effects. However, patient was not taking Risperdal at home as prescribed * Observation to medical floor * check NH4 and INR level * Repeat LFTs in AM * Await hepatitis panel * If progressing will consult GI * (2) Schizoaffective disorder: Patient with poorly controlled schizoaffective disorder, bipolar type. Medication non-adherence and absence from care. Worsening of symptoms . TSH WNL. * Will resume Risperdal 1mg po qHS * Psychiatry consultation - appreciate assistance * 1:1 Sitter * Present on Admission?: Yes (3) state: Post day 8. No complications identified. ?if mental status may be form of PPD vs PP psychosis * Psychiatry consultation as above * OB consultation - appreciate assistance with this case * Pain management with Tylenol, heating pads * F/E/N - Heplock. Electrolytes WNL. Regular diet as tolerated PPx - Lovenox Code - FULL Dispo - Observation to medical floor History of Present Illness Chief Complaint: Abnormal LFTs Primary Care Provider: Jolly Krause PA-C Patient is a 18yo C female with history of schizoaffective disorder, bipolar type, substance abuse and anxiety. She is , s/p uncomplicated of healthy baby boy on 10/15/18. Patient has been noncompliant with her psychiatric medication regimen. She was previously fairly well maintained on Risperidone 0.5mg po BID but has not been taking it as prescribed since August 2018. She was evaluated by Psychiatry (Dr. Salazar) on 10/16/18. Dr. Salazar wrote to resume Risperidone at 1mg po qHS - changing the dosing from BID to daily in hopes of increasing adherence. It is uncertain if the patient has been taking this medication since being discharged from L&D. The patient was seen in the ER last week on a 302 order but the 302 was denied and she was sent home. She returns to the ER today with her mother and sister due to concern for her mental state. Patient is rather despondent and does not answer questions or provide history during encounter. Per report the patient has been hitting herself and pulling out her hair. She states she is unable to finish sentences and feels confused. ER staff comments that patient appears to be responding to internal stimuli. Patient denies pain. ER workup revealed abnormal LFTs, elevated AST, ALT and AP. Patient denies headache but states that her vision is blurry. No edema, no seizures. No fevers. No additional complaints at this time although encounter limited. Allergies Allergy/AdvReac Type Severity Reaction Status Date / Time No Known Allergies Allergy Verified 10/23/18 21:25 Home Medications Home Medications Medication Instructions Recorded Confirmed Type No Known Home Medications 10/23/18 10/23/18 History Past Med/Surg History Social History marital status: Single Current Living Situation: Significant Other Current Living Situation Comment: LISANDRO, LISANDRO's mom and LISANDRO's 2 brothers Other Information That Helps Us Care for You: Yes (psych history) Feels Safe at Home: No Is there a partner from a previous relationship who is making you feel unsafe now?: No Smoking Status: Unknown if ever smoked Beliefs That Will Affect Care: None Preferred Language: New Zealander Communication Ability: Impaired Communication Ability Comment: psychosis Agricultural 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 Required: No Review of Systems Unobtainable due to mental health condition Physical Exam 2 Vital Signs (Past 24 Hours): Last Vital Signs Temp 36.8 C 10/23/18 15:48 Pulse 75 10/23/18 23:45 Resp 18 10/23/18 23:45 BP 117/77 10/23/18 23:45 Pulse Ox 100 10/23/18 23:45 Physical Exam: General: patient resting comfortably, NAD, non-toxic in appearance Skin: warm, dry, intact, no rashes or lesions HEENT: NC/AT, PERRL, EOMI, anicteric sclera, conjunctiva without injection, external ear normal to inspection and nontender, nares patent, moist mucus membranes, dentition intact, no oropharyngeal lesions, neck supple, trachea midline, no LAD, no thyromegaly, no JVD Heart: +S1/S2, regular, no m/r/g Lungs: equal air entry bilaterally, no rales/rhonchi/wheezes Abd: +BS, soft, NT/ND, no masses/organomegaly/ascites Ext: warm, 2+ pulses in UE/LE bilaterally, no clubbing/cyanosis or edema Neuro: nonfocal Results & Data Laboratory Results Lab Results 10/23/18 10/23/18 10/23/18 Range/Units 16:39 16:39 16:39 WBC 10.10 (4.8-10.8) K/uL RBC 4.76 (4.2-5.4) M/uL Hgb 14.6 (12.0-16.0) g/dL Hct 42.4 (37-47) % MCV 89.1 (80-100) fL MCH 30.7 (25-34) pg MCHC 34.4 (32-36) g/dL RDW Std Deviation 42.8 (36.4-46.3) fL RDW Coeff of Marlyn 13.1 (11.5-14.5) % Plt Count 454 H (130-400) K/uL MPV 9.9 (7.4-10.4) fL Immature Gran % (Auto) 0.5 % Neut % (Auto) 66.8 % Lymph % (Auto) 22.5 % Grady % (Auto) 7.5 % Eos % (Auto) 2.1 % Baso % (Auto) 0.6 % Immature Gran # (Auto) 0.05 H (0.00-0.02) K/uL Neut # (Auto) 6.75 H (1.4-6.5) K/uL Lymph # (Auto) 2.27 (1.2-3.4) K/uL Grady # (Auto) 0.76 H (0.11-0.59) K/uL Eos # (Auto) 0.21 (0-0.5) K/uL Baso # (Auto) 0.06 (0-0.2) K/uL Sodium 136 (136-145) mmol/L Potassium 3.8 (3.5-5.1) mmol/L Chloride 103 (98-107) mmol/L Carbon Dioxide 23 (21-32) mmol/L Anion Gap 10.0 (3-11) BUN 12 (7-18) mg/dl Creatinine 0.82 (0.6-1.2) mg/dl Est Cr Clr Drug Dosing 106.4 ml/min Est GFR ( Amer) 119.4 Est GFR (Non-Af Amer) 103.0 BUN/Creatinine Ratio 14.4 (10-20) Glucose 75 (70-99) mg/dl Calcium 9.7 (8.5-10.1) mg/dl Total Bilirubin 0.3 (0.2-1) mg/dl AST 82 H (15-37) U/L ALT 558 H (12-78) U/L Alkaline Phosphatase 203 H (45-117) U/L Total Protein 9.0 H (6.4-8.2) gm/dl Albumin 3.5 (3.4-5.0) gm/dl Globulin 5.5 H (2.5-4.0) gm/dl Albumin/Globulin Ratio 0.6 L (0.9-2) TSH 1.220 (0.300-4.500) uIu/ml Urine Color Urine Appearance (Clear) Urine pH (4.5-7.5) Ur Specific [place] (1.000-1.030) Urine Protein (Negative) Urine Glucose (UA) (Negative) Urine Ketones (Negative) Urine Blood (Negative) Urine Nitrite (Negative) Urine Bilirubin (Negative) Urine Urobilinogen (Negative) Ur Leukocyte Esterase (Negative) Urine WBC (Auto) (0-5) /hpf Urine RBC (Auto) (0-4) /hpf U Hyaline Cast (Auto) (0-5) /lpf U Epithel Cells (Auto) (0-5) /lpf Urine Bacteria (Auto) (Negative) POC Ur Test (NEG) Salicylates < 1.7 L (2.8-20) mg/dl Urine Opiates Screen (Neg) Ur Methadone, Qual (Neg) Acetaminophen < 2 L (10-30) ug/ml Urine Barbiturates (Neg) Ur Phencyclidine (PCP) (Neg) U Amphetamin/Meth Scrn (Neg) MDMA (Ecstasy) Screen (Neg) U Benzodiazepines Scrn (Neg) Ur Cocaine Metabolite (Neg) U Marijuana (THC) Screen (Neg) Ethyl Alcohol mg/dL (0-3) mg/dl Hep Bs Antigen (Neg) 10/23/18 10/23/18 10/23/18 Range/Units 16:39 17:45 17:45 WBC (4.8-10.8) K/uL RBC (4.2-5.4) M/uL Hgb (12.0-16.0) g/dL Hct (37-47) % MCV (80-100) fL MCH (25-34) pg MCHC (32-36) g/dL RDW Std Deviation (36.4-46.3) fL RDW Coeff of Marlyn (11.5-14.5) % Plt Count (130-400) K/uL MPV (7.4-10.4) fL Immature Gran % (Auto) % Neut % (Auto) % Lymph % (Auto) % Grady % (Auto) % Eos % (Auto) % Baso % (Auto) % Immature Gran # (Auto) (0.00-0.02) K/uL Neut # (Auto) (1.4-6.5) K/uL Lymph # (Auto) (1.2-3.4) K/uL Grady # (Auto) (0.11-0.59) K/uL Eos # (Auto) (0-0.5) K/uL Baso # (Auto) (0-0.2) K/uL Sodium (136-145) mmol/L Potassium (3.5-5.1) mmol/L Chloride (98-107) mmol/L Carbon Dioxide (21-32) mmol/L Anion Gap (3-11) BUN (7-18) mg/dl Creatinine (0.6-1.2) mg/dl Est Cr Clr Drug Dosing ml/min Est GFR ( Amer) Est GFR (Non-Af Amer) BUN/Creatinine Ratio (10-20) Glucose (70-99) mg/dl Calcium (8.5-10.1) mg/dl Total Bilirubin (0.2-1) mg/dl AST (15-37) U/L ALT (12-78) U/L Alkaline Phosphatase (45-117) U/L Total Protein (6.4-8.2) gm/dl Albumin (3.4-5.0) gm/dl Globulin (2.5-4.0) gm/dl Albumin/Globulin Ratio (0.9-2) TSH (0.300-4.500) uIu/ml Urine Color Yellow Urine Appearance Clear (Clear) Urine pH 5.5 (4.5-7.5) Ur Specific [place] 1.016 (1.000-1.030) Urine Protein Negative (Negative) Urine Glucose (UA) Negative (Negative) Urine Ketones Negative (Negative) Urine Blood 2+ H (Negative) Urine Nitrite Negative (Negative) Urine Bilirubin Negative (Negative) Urine Urobilinogen Negative (Negative) Ur Leukocyte Esterase 2+ H (Negative) Urine WBC (Auto) 10-30 H (0-5) /hpf Urine RBC (Auto) 0-4 (0-4) /hpf U Hyaline Cast (Auto) 1-5 (0-5) /lpf U Epithel Cells (Auto) 20-30 H (0-5) /lpf Urine Bacteria (Auto) Negative (Negative) POC Ur Test (NEG) Salicylates (2.8-20) mg/dl Urine Opiates Screen Neg (Neg) Ur Methadone, Qual Neg (Neg) Acetaminophen (10-30) ug/ml Urine Barbiturates Neg (Neg) Ur Phencyclidine (PCP) Neg (Neg) U Amphetamin/Meth Scrn Neg (Neg) MDMA (Ecstasy) Screen Neg (Neg) U Benzodiazepines Scrn Neg (Neg) Ur Cocaine Metabolite Neg (Neg) U Marijuana (THC) Screen Neg (Neg) Ethyl Alcohol mg/dL < 3.0 (0-3) mg/dl Hep Bs Antigen (Neg) 10/23/18 10/23/18 Range/Units 17:52 23:06 WBC (4.8-10.8) K/uL RBC (4.2-5.4) M/uL Hgb (12.0-16.0) g/dL Hct (37-47) % MCV (80-100) fL MCH (25-34) pg MCHC (32-36) g/dL RDW Std Deviation (36.4-46.3) fL RDW Coeff of Marlyn (11.5-14.5) % Plt Count (130-400) K/uL MPV (7.4-10.4) fL Immature Gran % (Auto) % Neut % (Auto) % Lymph % (Auto) % Grady % (Auto) % Eos % (Auto) % Baso % (Auto) % Immature Gran # (Auto) (0.00-0.02) K/uL Neut # (Auto) (1.4-6.5) K/uL Lymph # (Auto) (1.2-3.4) K/uL Grady # (Auto) (0.11-0.59) K/uL Eos # (Auto) (0-0.5) K/uL Baso # (Auto) (0-0.2) K/uL Sodium (136-145) mmol/L Potassium (3.5-5.1) mmol/L Chloride (98-107) mmol/L Carbon Dioxide (21-32) mmol/L Anion Gap (3-11) BUN (7-18) mg/dl Creatinine (0.6-1.2) mg/dl Est Cr Clr Drug Dosing ml/min Est GFR ( Amer) Est GFR (Non-Af Amer) BUN/Creatinine Ratio (10-20) Glucose (70-99) mg/dl Calcium (8.5-10.1) mg/dl Total Bilirubin (0.2-1) mg/dl AST (15-37) U/L ALT (12-78) U/L Alkaline Phosphatase (45-117) U/L Total Protein (6.4-8.2) gm/dl Albumin (3.4-5.0) gm/dl Globulin (2.5-4.0) gm/dl Albumin/Globulin Ratio (0.9-2) TSH (0.300-4.500) uIu/ml Urine Color Urine Appearance (Clear) Urine pH (4.5-7.5) Ur Specific [place] (1.000-1.030) Urine Protein (Negative) Urine Glucose (UA) (Negative) Urine Ketones (Negative) Urine Blood (Negative) Urine Nitrite (Negative) Urine Bilirubin (Negative) Urine Urobilinogen (Negative) Ur Leukocyte Esterase (Negative) Urine WBC (Auto) (0-5) /hpf Urine RBC (Auto) (0-4) /hpf U Hyaline Cast (Auto) (0-5) /lpf U Epithel Cells (Auto) (0-5) /lpf Urine Bacteria (Auto) (Negative) POC Ur Test NEG (NEG) Salicylates (2.8-20) mg/dl Urine Opiates Screen (Neg) Ur Methadone, Qual (Neg) Acetaminophen (10-30) ug/ml Urine Barbiturates (Neg) Ur Phencyclidine (PCP) (Neg) U Amphetamin/Meth Scrn (Neg) MDMA (Ecstasy) Screen (Neg) U Benzodiazepines Scrn (Neg) Ur Cocaine Metabolite (Neg) U Marijuana (THC) Screen (Neg) Ethyl Alcohol mg/dL (0-3) mg/dl Hep Bs Antigen Neg (Neg) Code Status & VTE Plan Code Status FULL VTE Prophylaxis Plan VTE Prophylaxis will be ordered: Yes Critical Care Time Critical Care Time: No _ (1) Schizoaffective disorder Schizoaffective disorder type: unspecified Qualified Code(s): F25.9 - Schizoaffective disorder, unspecified
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
[2018-10-24 00:31] LABS: Hepatitis C IgG 13Yrs+Old_Rflx Neg (Neg)
[2018-10-24] MEDS ORDERED: INFLUENZA VIRUS QUAD VACCINE 0.5 ML SYR IM ONE (06:45)
[2018-10-24] MEDS ORDERED: INFLUENZA ADMINISTRATION CHARGE ONE (06:45)
[2018-10-24 07:28] LABS: Basophils # (auto) 0.05 K/uL (0-0.2); Basophils % (auto) 0.6 %; Eosinophils # (auto) 0.29 K/uL (0-0.5); Eosinophils % (auto) 3.6 %; Hematocrit (blood only) 37.2 % (37-47); Hemoglobin 12.6 g/dL (12.0-16.0); Immature Granulocytes # (auto) 0.06 K/uL (0.00-0.02); Immature Granulocytes % (auto) 0.8 %; Lymphocytes # (auto) 2.66 K/uL (1.2-3.4); Lymphocytes % (auto) 33.3 %; Mean Corpuscular Hgb Conc 33.9 g/dL (32-36); Mean Corpuscular Volume 87.9 fL (80-100); Mean Platelet Volume 9.8 fL (7.4-10.4); Monocytes # (auto) 0.64 K/uL (0.11-0.59); Neutrophils # (auto) 4.28 K/uL (1.4-6.5); Neutrophils % (auto) 53.7 %; Platelet Count 350 K/uL (130-400); RDW Coefficient of Variation 13.1 % (11.5-14.5); RDW Standard Deviation 42.2 fL (36.4-46.3); Red Blood Count 4.23 M/uL (4.2-5.4); White Blood Count 7.98 K/uL (4.8-10.8)
[2018-10-24 07:40] LABS: Prothrombin Time 10.5 Seconds (9.0-12.0)
[2018-10-24 08:08] LABS: BUN Creatinine Ratio 11.4 (10-20); Bilirubin Direct 0.2 mg/dl (0-0.2); Creatinine Clr Calc Pharmacy 110.3 ml/min; Est GFR (African American) 124.9; Est GFR (Non-African American) 107.8; Magnesium 1.9 mg/dl (1.8-2.4); Potassium 3.6 mmol/L (3.5-5.1)
[2018-10-24 08:10] LABS: Bilirubin,Total 0.6 mg/dl (0.2-1); Phosphorus 4.1 mg/dl (2.5-4.9); Total Protein 7.7 gm/dl (6.4-8.2)
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
[2018-10-24] MEDS ORDERED: MEDROXYPROGESTERONE ACETATE 150 MG/ML VIAL IM ONE (11:30)
[2018-10-24] MEDS: risperiDONE ODT 0.5 MG SOLTAB PO SCH (11:41)
[2018-10-24] MEDS: ENOXAPARIN INJ 40 MG/0.4 ML SYR SQ SCH (11:46)
[2018-10-24 15:32] LABS: Albumin Level 3.2 gm/dl (3.4-5.0); Bilirubin Direct 0.1 mg/dl (0-0.2); Bilirubin,Total 0.3 mg/dl (0.2-1); Total Protein 8.3 gm/dl (6.4-8.2)
[2018-10-24] MEDS ORDERED: risperiDONE 1 MG TABLET PO SCH (21:00)
--- NOTE | 2018-10-24 23:37 | Hospitalist Progress Note ---
Date of Service October 24, 2018 Assessment & Plan (1) Abnormal LFTs: Patient admitted to medicla floor under OBS. LFT's have been tredning down, However afternoon labs did show an increase to her alk phos. Unsure as to what caused her increase, her imaging is negative. INR is also normal. She does have a poor diet, and is eating fast food. Perhaps early fatty liver. She may have also drank alcohol before coming to the hospital eventhough her eToh is negative. Will recheck in AM. (2) Schizoaffective disorder: Patient with poorly controlled schizoaffective disorder, bipolar type. Medication non-adherence and absence from care. Worsening of symptoms . TSH WNL. * Will resume Risperdal 1mg po qHS * Psychiatry consultation - appreciate assistance * 1:1 Sitter * (3) state: Post day 8. No complications identified. ?if mental status may be form of PPD vs PP psychosis * Psychiatry consultation as above * OB consultation - appreciate assistance with this case * Pain management with Tylenol, heating pads * F/E/N - Heplock. Electrolytes WNL. Regular diet as tolerated PPx - Lovenox Code - FULL Patient will be transferred to psych later likely tomorrow. Spent 35 minutes in management of patient. Subjective Patient is a poor historian. She does not provide significant medical history today. She states she is feeling fine. She denies any nausea, vomiting, diarrhea, chest pain, fever chills. Physical Exam 2 Vital Signs (Past 24 Hours): Last Vital Signs Temp 36.7 C 10/24/18 15:18 Pulse 100 H 10/24/18 15:18 Resp 19 10/24/18 15:18 BP 107/66 10/24/18 15:18 Pulse Ox 97 10/24/18 15:18 Physical Exam: General: patient resting comfortably, NAD, non-toxic in appearance Skin: warm, dry, intact, no rashes or lesions HEENT: NC/AT, PERRL, EOMI, anicteric sclera, conjunctiva without injection, external ear normal to inspection and nontender, nares patent, moist mucus membranes, dentition intact, no oropharyngeal lesions, neck supple, trachea midline, no LAD, no thyromegaly, no JVD Heart: +S1/S2, regular, no m/r/g Lungs: equal air entry bilaterally, no rales/rhonchi/wheezes Abd: +BS, soft, NT/ND, no masses/organomegaly/ascites Ext: warm, 2+ pulses in UE/LE bilaterally, no clubbing/cyanosis or edema Neuro: nonfocal _ (1) Schizoaffective disorder Schizoaffective disorder type: unspecified Qualified Code(s): F25.9 - Schizoaffective disorder, unspecified
[2018-10-25 09:34] LABS: Basophils # (auto) 0.05 K/uL (0-0.2); Basophils % (auto) 0.6 %; Eosinophils # (auto) 0.16 K/uL (0-0.5); Eosinophils % (auto) 2.1 %; Hematocrit (blood only) 38.8 % (37-47); Hemoglobin 13.3 g/dL (12.0-16.0); Immature Granulocytes # (auto) 0.03 K/uL (0.00-0.02); Immature Granulocytes % (auto) 0.4 %; Lymphocytes # (auto) 2.05 K/uL (1.2-3.4); Lymphocytes % (auto) 26.3 %; Mean Corpuscular Hgb Conc 34.3 g/dL (32-36); Mean Corpuscular Volume 88.6 fL (80-100); Mean Platelet Volume 9.6 fL (7.4-10.4); Monocytes # (auto) 0.64 K/uL (0.11-0.59); Monocytes % (auto) 8.2 %; Neutrophils # (auto) 4.86 K/uL (1.4-6.5); Neutrophils % (auto) 62.4 %; Platelet Count 338 K/uL (130-400); RDW Standard Deviation 42.2 fL (36.4-46.3); Red Blood Count 4.38 M/uL (4.2-5.4); White Blood Count 7.79 K/uL (4.8-10.8)
[2018-10-25] MEDS: risperiDONE ODT 0.5 MG SOLTAB PO SCH (09:57)
[2018-10-25] MEDS: ENOXAPARIN INJ 40 MG/0.4 ML SYR SQ SCH (09:59)
[2018-10-25 10:08] LABS: BUN Creatinine Ratio 11.3 (10-20); Calcium 9.1 mg/dl (8.5-10.1); Creatinine Clr Calc Pharmacy 102.5 ml/min; Est GFR (African American) 114.3; Est GFR (Non-African American) 98.6; Potassium 3.5 mmol/L (3.5-5.1)
[2018-10-25 10:11] LABS: Albumin Globulin Ratio 0.6 (0.9-2); Bilirubin,Total 0.3 mg/dl (0.2-1); Globulin 4.7 gm/dl (2.5-4.0); Total Protein 7.7 gm/dl (6.4-8.2)
--- NOTE | 2018-10-25 11:07 | Psychiatric Progress Note ---
Date of Service October 25, 2018 Impression / Recommendations Impression 18 yo female, 9 days post , admitted medically due to elevated LFTs after presenting with psychosis. 302 was completed in the ER, and will file for a 303 hearing to be held tomorrow, as she remains symptomatic and has demonstrated an inability to provide for her own basic needs as an outpatient, has not followed through on outpatient mental health care or continued to take psychotropic medications after her last 3 hospital contacts, is not able to care for her infant due to her decompensated mental illness, and requires inpatient psychiatric treatment for stabilization. She was on our unit in August 2018 but was noncompliant with treatment after discharge, was again seen by the psychiatry consult service earlier this month after being admitted for of her son, and was then seen in the ER on 10/19/2018 on a 302 petition that was ultimately dismissed. (1) Schizoaffective disorder: 10/24 - Patient on a 302. Will need to file for 303 tomorrow in order to have hearing before it expires on 10/28 at 2000 as she will require inpatient mental health treatment when medically cleared - Agree with Risperdal 1 mg HS. Will also add 0.5 mg q AM - Will need to collaborate with her OP providers 10/25 -Continue risperidone 0.5 mg every morning and 1 mg at bedtime. -File for 303 with a commitment hearing to be held tomorrow (this can be done either on the medical floor or the U, wherever the patient is located). Inventory Assets Strengths: Support from mother Needs: Medication compliance, and outpatient treatment Risk Factors Assessment Male: No : Yes Do You Have Access To A Gun?: No (previously reported no) Health Problems: Yes Mental Health Diagnoses: Yes Substance Use Disorders: Yes Previous Attempt: Yes Previous Psychiatric Hospitalization: Yes Hopelessness: No Smoker: No Protective Factors Assessment Congregation Beliefs: No : No Responsible for Young Children: No (Baby is with FOB's mother) Employed: No Stable Relationships: No Supportive Family: Yes Good Rapport with Provider: No Interval History Identifying Information 18 yo female with known schizoaffective disorder, bipolar type, substance abuse , anxiety and suspected ID, admitted medically due to elevated liver enzymes. She is on a 302 involuntary commitment due to inability to care for herself. Chief Complaint "Good". Review of Systems Notes Denies nausea, vomiting, pain. Sleeping excessively Subjective Subjective Patient was seen & assessed and interval progress reviewed with her nurse. She reports the patient has been sleeping a lot, but has been able to answer questions appropriately. The psychiatric liaison nurse met with her last evening and answered questions about her 302 involuntary commitment. She continued to demonstrate disorganization with slow speech, difficulty answering questions, and somatic delusions regarding her mouth. Her outpatient case resource manager, Kristen, also visited her yesterday and reported that [facility] is following with the patient and she is not permitted to be alone with her infant son. Her baby is staying with his father and paternal grandmother, and the father is also not allowed to be alone with the baby. Although when the patient was discharged from labor and delivery last week she was planning to live with the father of the baby, she is now living with her mother. Her family reported that she had been hitting herself and pulling out her own hair, had not been eating or taking medications, and was unable to provide for her basic needs even with their assistance. On my assessment, the patient reports she is feeling a bit better today, but is still tired and wants to rest. She cannot explain why she did not continue medications after discharge from labor and delivery, stating "I don't know." She affirms that she has been living with her mother's side of her boyfriend, but cannot explain why she left her boyfriend's house or where she will be living after discharge. She continues to endorse somatic delusions that at times she is unable to speak or people cannot understand her. She denies current hallucinations and suicidal thoughts. Reviewed treatment recommendations with her, including the recommendation for inpatient psychiatric treatment once she is medically stabilized, and she vacillated back and forth about her willingness to come in voluntarily, stating she did not want to be in the hospital very long. Explained to the involuntary commitment process to her, and that there would be a 303 hearing tomorrow. It is unclear how much of this explanation the patient understood. Physical Exam Mental Examination Well-nourished well-developed white female appearing her stated age. Lying in bed in no acute distress resting. Fair hygiene, limited grooming. Opens eyes briefly and answers questions, but appears tired and engagement is limited. No abnormal movements. Mood is "good," but affect is blunted and congruent. Thoughts are concrete and goal-directed, some perseveration on how long she will need to be in the hospital. Paucity of thought content, denies SI, HI, and hallucinations. Endorses somatic delusions that at times her mouth does not work right and she cannot speak or others cannot understand her. Level of intelligence estimated to be below average. Insight and judgment are impaired. Vital Signs (Past 24 Hours) Last Vital Signs Temp 36.5 C 10/25/18 09:25 Pulse 80 10/25/18 09:25 Resp 18 10/25/18 09:25 BP 110/73 10/25/18 09:25 Pulse Ox 99 10/25/18 09:25 Results & Data Laboratory Results Laboratory Results - last 24 hr 10/23/18 10/24/18 10/25/18 23:06 14:53 09:20 WBC 7.79 RBC 4.38 Hgb 13.3 Hct 38.8 MCV 88.6 MCH 30.4 MCHC 34.3 RDW Std Deviation 42.2 RDW Coeff of Marlyn 13.0 Plt Count 338 MPV 9.6 Immature Gran % (Auto) 0.4 Neut % (Auto) 62.4 Lymph % (Auto) 26.3 Perry % (Auto) 8.2 Eos % (Auto) 2.1 Baso % (Auto) 0.6 Immature Gran # (Auto) 0.03 H Neut # (Auto) 4.86 Lymph # (Auto) 2.05 Perry # (Auto) 0.64 H Eos # (Auto) 0.16 Baso # (Auto) 0.05 Sodium Potassium Chloride Carbon Dioxide Anion Gap BUN Creatinine Est Cr Clr Drug Dosing Est GFR ( Amer) Est GFR (Non-Af Amer) BUN/Creatinine Ratio Glucose Calcium Total Bilirubin 0.3 Direct Bilirubin 0.1 AST 51 H ALT 382 H Alkaline Phosphatase 172 H Total Protein 8.3 H Albumin 3.2 L Globulin Albumin/Globulin Ratio Hepatitis A IgM Ab NON-REACTIVE Hep B Core IgM Ab NON-REACTIVE 10/25/18 09:20 WBC RBC Hgb Hct MCV MCH MCHC RDW Std Deviation RDW Coeff of Marlyn Plt Count MPV Immature Gran % (Auto) Neut % (Auto) Lymph % (Auto) Perry % (Auto) Eos % (Auto) Baso % (Auto) Immature Gran # (Auto) Neut # (Auto) Lymph # (Auto) Perry # (Auto) Eos # (Auto) Baso # (Auto) Sodium 137 Potassium 3.5 Chloride 105 Carbon Dioxide 23 Anion Gap 8.0 BUN 10 Creatinine 0.85 Est Cr Clr Drug Dosing 102.5 Est GFR ( Amer) 114.3 Est GFR (Non-Af Amer) 98.6 BUN/Creatinine Ratio 11.3 Glucose 91 Calcium 9.1 Total Bilirubin 0.3 Direct Bilirubin AST 32 ALT 282 H Alkaline Phosphatase 149 H Total Protein 7.7 Albumin 3.0 L Globulin 4.7 H Albumin/Globulin Ratio 0.6 L Hepatitis A IgM Ab Hep B Core IgM Ab Current Inpatient Medications Current Inpatient Medications: Current Inpatient Medications Acetaminophen (Tylenol) 650 mg PO Q4H PRN PRN Reason: pain/fever Stop: 11/22/18 23:48 Enoxaparin Sodium (Lovenox) 40 mg SQ Q24H [facility] Stop: 11/23/18 08:59 Last Admin: 10/25/18 09:59 Dose: Not Given Risperidone (Risperdal) 1 mg PO HS [facility] Stop: 11/23/18 20:59 Last Admin: 10/24/18 20:07 Dose: 1 mg Risperidone (Risperdal M) 0.5 mg PO QAM [facility] Stop: 11/23/18 11:14 Last Admin: 10/25/18 09:57 Dose: 0.5 mg Post Discharge Appointments Primary Care Physician Name Of Family Doctor: Unknown Therapist Name of Therapist: None Casino Games Dealer Name of Casino Games Dealer: Trupti Freire CPT Code CPT Code 03839 _ (1) Schizoaffective disorder Schizoaffective disorder type: unspecified Qualified Code(s): F25.9 - Schizoaffective disorder, unspecified
--- NOTE | 2018-10-31 11:20 | Discharge Summary ---
Date of Service October 25, 2018 Admission HPI Per Admitting Provider Patient is a 18yo C female with history of schizoaffective disorder, bipolar type, substance abuse and anxiety. She is , s/p uncomplicated of healthy baby boy on 10/15/18. She has been seen in the ED since giving due to poor functionality, but 302 was denied and she was sent home. Per the EHR and the 302 petitioners statement from Carey Hirsch systems integration manager, the patient is not functioning at home. Mother reported that she has to tell the patient to shower, has not been taking any medications, and is poorly functional. At the time I see the patient she is asleep, resists waking up for the discussion. She requires constant verbal/tactile stimulation to remain awake and participate in the discussion. When asked about her mental health, she says that it is "poor" and says that she thinks she is "dying" but cannot further explain. She denies that she is having suicidal thoughts or hallucinations, but when asked about other odd thoughts she says "yes" but cannot further explain. The only spontaneous thought she expresses is that she feels like she is living the same day "over and over", but once again, cannot further explain. When asked if she has been taking any meds at home she responds "No.". Principal Diagnosis Abnormal LFTs Discharge Exam General: patient resting comfortably, NAD, non-toxic in appearance Skin: warm, dry, intact, no rashes or lesions HEENT: NC/AT, PERRL, EOMI, anicteric sclera, conjunctiva without injection, external ear normal to inspection and nontender, nares patent, moist mucus membranes, dentition intact, no oropharyngeal lesions, neck supple, trachea midline, no LAD, no thyromegaly, no JVD Heart: +S1/S2, regular, no m/r/g Lungs: equal air entry bilaterally, no rales/rhonchi/wheezes Abd: +BS, soft, NT/ND, no masses/organomegaly/ascites Ext: warm, 2+ pulses in UE/LE bilaterally, no clubbing/cyanosis or edema Neuro: nonfocal Discharge Data Allergies Allergy/AdvReac Type Severity Reaction Status Date / Time No Known Allergies Allergy Verified 10/23/18 21:25 Consultations 10/23/18 21:44 ED Decision to Admit Stat 10/23/18 23:49 Consult Obstetrics Routine Consult Psychiatry Routine Ordered Studies 10/23/18 20:01 CT head/brain wo con Stat 10/23/18 21:24 US abdomen limited Stat Hospital Course (1) Abnormal LFTs: Patient admitted to medicla floor under OBS. LFT's have been tredning down, However afternoon labs did show an increase to her alk phos. Unsure as to what caused her increase, her imaging is negative. INR is also normal. She does have a poor diet, and is eating fast food. Perhaps early fatty liver. She may have also drank alcohol before coming to the hospital eventhough her eToh is negative. On day of discharge, LFTs continued to improve. (2) Schizoaffective disorder: Patient with poorly controlled schizoaffective disorder, bipolar type. Medication non-adherence and absence from care. Worsening of symptoms . TSH WNL. * Will resume Risperdal 1mg po qHS * Psychiatry consultation - appreciate assistance * 1:1 Sitter * (3) state: Post day 8. No complications identified. ?if mental status may be form of PPD vs PP psychosis * Psychiatry consultation as above * OB consultation - appreciate assistance with this case * Pain management with Tylenol, heating pads * F/E/N - Heplock. Electrolytes WNL. Regular diet as tolerated PPx - Lovenox Code - FULL Patient is transferred to psych. Total Time Total Time Spent Total Time Spent (In Minutes): 33 minutes Total Time Includes: Examination of the Patient, Discharge Planning and Medication Reconciliation Discharge Plan Discharge Items Patient Disposition: Transfer Behavioral Health Fac Reason For Visit: ABNORMAL LFTS Discharge Diagnosis: Abnormal LFTs Discharge Goals: Diagnostic testing Activity: Resume your previous activity Non-emergency contact: Primary Care Provider, Specialist and Psychiatrist Call non-emergency contact if: you have any medication questions Diet: Regular Addtl Provider Instructions: F/U with PCP at discharge. Recheck LFT in 1-2 weeks. Prescriptions: New risperidone 1 mg Tablet 1 mg PO HS Qty: 30 RF: 0 risperidone 0.5 mg Tablet,Disintegrating 0.5 mg PO QAM Qty: 30 RF: 0 Discharge Orders: Discharge Order (Routine); Ordered 10/25/18 Ordered By: Kashmir Jain Admission Data Admit Date/Time: 10/23/18 22:16 Attending Provider: Kashmir Jain Admit Provider: Hemalatha Curtis Primary Care Provider: Jolly Krause Other Providers: Hemalatha Curtis ; Beryl Leyva ; Jackelyn Salazar Service: Medical Other Interventions: Discharge Summary Assessment (RN) Last Done: 10/25/18 13:31 DC Date/Time DO NOT enter until pt leaves facility: 10/25/18 13:45
== END 2018-10-25 13:45 ==
LOC: 4W 15:46 → ED 15:46 → SUATTDRO 22:16 → 4W 23:45

== ENCOUNTER 2018-10-25 13:46 | Inpatient (IN) ==
[2018-10-25] MEDS ORDERED: MAGNESIUM HYDROXIDE SUSP 30 ML UDC PO PRN (15:14)
[2018-10-25] MEDS ORDERED: ALUMINUM/MAGNESIUM SUSP 30 ML UDC PO PRN (15:14)
[2018-10-25] MEDS ORDERED: SODIUM CHLORIDE 0.65% NA SOLN 45 ML (OCEAN) PRN (15:14)
[2018-10-25] MEDS ORDERED: BISMUTH SUBSALICYLATE PER ML OMNICELL CHARGE PO PRN (15:14)
[2018-10-25] MEDS ORDERED: risperiDONE 1 MG TABLET PO SCH (22:00)
[2018-10-26] MEDS ORDERED: risperiDONE 0.5 MG TABLET PO SCH (09:00)
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
[2018-10-26] MEDS ORDERED: PALIPERIDONE 3 MG TABCR PO ONE (11:15)
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
[2018-10-27] MEDS: PALIPERIDONE 3 MG TABCR PO SCH (09:50)
[2018-10-27] MEDS: ACETAMINOPHEN 325 MG TAB PO PRN (10:23)
--- NOTE | 2018-10-27 12:45 | Psychiatric Progress Note ---
Date of Service October 27, 2018 Impression / Recommendations Impression 18 yo female, 10 days post , admitted medically due to elevated LFTs after presenting with psychosis. Now on 303 status after hearing on 10/26/18. She continues to be with psychosis characterized by grossly disorganized thinking, somatic and other delusional beliefs, and inability to attend to her own personal needs without the availability of the full spectrum of psychiatric services on an inpatient level of care. She remains symptomatic and has demonstrated an inability to provide for her own basic needs as an outpatient, has not followed through on outpatient mental health care or continued to take psychotropic medications after her last 3 hospital contacts. She is not able to care for herself or her due to her decompensated mental illness and will need continued treatment at this time. Treatment plan is to give oral Invega and HAWKINS sustenna if tolerating this medication. Given history of non- compliance, invega sustenna would be beneficial to this patient. (1) Schizoaffective disorder, bipolar type: 10/26/18 -The plan is to discontinue risperidone and begin paliperidone (Invega) 6 mg daily, and then switch to Invega Sustenna as tolerated. -Nursing checks for unreported post- bleeding. -Reality testing and reassurances. 10/27/18 -Continue paliperidone (Invega) 6 mg daily, and then switch to Invega Sustenna as tolerated. -Nursing checks for unreported post- bleeding. -Reality testing and reassurances. -Family meeting Inventory Assets Strengths: Active family support (mother) Needs: Adherence with outpatient treatment. Resolution of psychosis. Risk Factors Assessment Male: No : Yes Do You Have Access To A Gun?: No Health Problems: No (10-days ) Mental Health Diagnoses: Yes Substance Use Disorders: Yes Previous Attempt: Yes Previous Attempt; Highly Lethal: Yes Previous Psychiatric Hospitalization: Yes Hopelessness: Yes Smoker: No Protective Factors Assessment : No Responsible for Young Children: No ([place] baby currently being cared for by the patient's mother) Employed: No Stable Relationships: Yes Supportive Family: Yes Good Rapport with Provider: Yes Absence of Any Risk Factors Above: No (Nature of the patient's relationship with her outpatient provider is not known. However, she tells me that she likes her outpatient provider, but at the same time says that she will not follow his recommendations for treatment.) Interval History Chief Complaint "I feel like I'm the other patients" Review of Systems Sleep Information Total Hours of Sleep: 7.5 Sleep Comments: pt on q-15 minute checks Meal Information Percent Meal Consumed - Breakfast: 100 Percent Meal Consumed - Lunch: 5 Percent Meal Consumed - Dinner: 50 Subjective Subjective Patient states that she feels like she is the other patient and feels that she has to talk like them. She then states she feels that she is letting every down as well. She reports that she feels her tongue is not working properly and she can't feel it, states it has been like that for a long time. Denies SI/HI/aVH. States she has only one child, this last being the first, and asks when there will be a family meeting. States "I dont' want to stay here as long as last time" and states "who wants to be in a mental institution". Patient was seen & assessed and interval progress reviewed with Nursing Physical Exam Psychiatric Orientation: alert and oriented to place Apperance: + disheveled Eye Contact: + poor eye contact Motor Behavior: + psychomotor retardation slow rate and rhythem of speech Affect: + blunted affect and mood congruent with affect Thought Process: + thought blocking Thought Content: + delusions and + guilt Suicidal Thoughts: denies suicidal thoughts Homicidal Thoughts: denies homicidal thoughts Hallucinations: no auditory hallucinations and no visual hallucinations denies Cognition: attention grossly intact Estimated Intelligence: average estimated intelligence Insight: + impaired insight Judgement: + impaired judgement Vital Signs (Past 24 Hours) Last Vital Signs Temp 36.8 C 10/27/18 06:39 Pulse 88 10/27/18 06:39 Resp 16 10/27/18 06:39 BP 121/81 10/27/18 06:39 Results & Data Current Inpatient Medications Current Inpatient Medications: Current Inpatient Medications Acetaminophen (Tylenol) 650 mg PO Q4H PRN PRN Reason: Headache or Minor Fever Stop: 11/24/18 15:13 Last Admin: 10/27/18 10:23 Dose: 650 mg Al Hydrox/Mg Hydrox/Simethicone (Maalox) 30 ml PO Q4H PRN PRN Reason: GI Upset Stop: 11/24/18 15:13 Bismuth Subsalicylate (Kaopectate) 15 ml PO PRN PRN PRN Reason: Loose Stool Stop: 11/24/18 15:13 Hydroxyzine HCl (Vistaril) 50 mg PO HSZ PRN PRN Reason: Insomnia Stop: 11/24/18 15:13 Magnesium Hydroxide (Milk Of Magnesia) 30 ml PO DAILY PRN PRN Reason: Heartburn Stop: 11/24/18 15:13 Paliperidone (Invega) 6 mg PO DAILY HENRIK Stop: 11/26/18 08:59 Last Admin: 10/27/18 09:50 Dose: 6 mg Sodium Chloride ([place] Nasal) 1 - 2 sprays NA PRN PRN PRN Reason: Nasal Dryness/Congestion Stop: 11/24/18 15:13 Post Discharge Appointments Primary Care Physician Name Of Family Doctor: Jolly Shafer Therapist Name of Therapist: Celine Velazco [facility] Lawn Mower Name of Lawn Mower: Phyllis CANTU from [facility] CPT Code CPT Code 82643
[2018-10-27] MEDS: HALOPERIDOL 5 MG TAB PO PRN (18:37)
[2018-10-28] MEDS: PALIPERIDONE 3 MG TABCR PO SCH ×2 (10:08→21:03)
--- NOTE | 2018-10-28 11:07 | Psychiatric Progress Note ---
Date of Service October 28, 2018 Impression / Recommendations Impression 18 yo female, 10 days post , admitted medically due to elevated LFTs after presenting with psychosis. Now on 303 status after hearing on 10/26/18. She continues to be with psychosis characterized by grossly disorganized thinking, somatic and other delusional beliefs, and inability to attend to her own personal needs without the availability of the full spectrum of psychiatric services on an inpatient level of care. She remains symptomatic and has demonstrated an inability to provide for her own basic needs as an outpatient, has not followed through on outpatient mental health care or continued to take psychotropic medications after her last 3 hospital contacts. She is not able to care for herself or her due to her decompensated mental illness and will need continued treatment at this time. Treatment plan is to give oral Invega and HAWKINS sustenna if tolerating this medication and approval obtained by insurance. Given history of non-compliance, invega sustenna would be beneficial to this patient. (1) Schizoaffective disorder, bipolar type: 10/26/18 -The plan is to discontinue risperidone and begin paliperidone (Invega) 6 mg daily, and then switch to Invega Sustenna as tolerated. -Nursing checks for unreported post- bleeding. -Reality testing and reassurances. 10/27/18 -Continue paliperidone (Invega) 6 mg daily, and then switch to Invega Sustenna as tolerated. -Nursing checks for unreported post- bleeding. -Reality testing and reassurances. -Family meeting 10/28/18 -Increase paliperidone (Invega) 6 mg qam and 3mg qhs, and then switch to Invega Sustenna as tolerated. -Nursing checks for unreported post- bleeding. -Reality testing and reassurances. -Family meeting Inventory Assets Strengths: Active family support (mother) Needs: Adherence with outpatient treatment. Resolution of psychosis. Risk Factors Assessment Male: No : Yes Do You Have Access To A Gun?: No Health Problems: No (10-days ) Mental Health Diagnoses: Yes Substance Use Disorders: Yes Previous Attempt: Yes Previous Attempt; Highly Lethal: Yes Previous Psychiatric Hospitalization: Yes Hopelessness: Yes Smoker: No Protective Factors Assessment : No Responsible for Young Children: No ( baby currently being cared for by the patient's mother) Employed: No Stable Relationships: Yes Supportive Family: Yes Good Rapport with Provider: Yes Absence of Any Risk Factors Above: No (Nature of the patient's relationship with her outpatient provider is not known. However, she tells me that she likes her outpatient provider, but at the same time says that she will not follow his recommendations for treatment.) Interval History Chief Complaint "I'm coloring today" Review of Systems Sleep Information Total Hours of Sleep: 7.5 Sleep Comments: pt on q-15 minute checks Meal Information Percent Meal Consumed - Breakfast: 100 Percent Meal Consumed - Lunch: 20 Percent Meal Consumed - Dinner: 100 Nutrition Comment: Still complains she is having difficulty swallowing Subjective Subjective Patient states that she had "melted down yesterday" and states she was upset. States that she feels ok now, but misses home. States she hopes her mother comes to visit today. She denied Si/HI/aVH but reported that she is at times having thoughts that she is the other patient, but "I'm trying to push it out of my mind". She states she is coloring to keep her mind busy in other things. When asked if she thinks she is a nurse or the doctor, she states "no, you can only be yourself right". Patient was seen & assessed and interval progress reviewed with Nursing Physical Exam Psychiatric Orientation: alert, oriented to person and oriented to place Apperance: appropriately dressed Eye Contact: + poor eye contact Motor Behavior: no abnormal motor movements slow rate and volume Affect: + blunted affect and mood congruent with affect Thought Process: + thought blocking Thought Content: + delusions Suicidal Thoughts: denies suicidal thoughts Homicidal Thoughts: denies homicidal thoughts Hallucinations: no auditory hallucinations and no visual hallucinations denies Cognition: attention grossly intact Estimated Intelligence: average estimated intelligence Insight: + poor insight Judgement: + poor judgement Vital Signs (Past 24 Hours) Last Vital Signs Temp 36.7 C 10/28/18 06:40 Pulse 81 10/28/18 06:41 Resp 16 10/28/18 06:40 BP 96/63 L 10/28/18 06:41 Results & Data Current Inpatient Medications Current Inpatient Medications: Current Inpatient Medications Acetaminophen (Tylenol) 650 mg PO Q4H PRN PRN Reason: Headache or Minor Fever Stop: 11/24/18 15:13 Last Admin: 10/27/18 10:23 Dose: 650 mg Al Hydrox/Mg Hydrox/Simethicone (Maalox) 30 ml PO Q4H PRN PRN Reason: GI Upset Stop: 11/24/18 15:13 Bismuth Subsalicylate (Kaopectate) 15 ml PO PRN PRN PRN Reason: Loose Stool Stop: 11/24/18 15:13 Haloperidol (Haldol) 5 mg PO BID PRN PRN Reason: Anxiety/Agitation Stop: 11/26/18 20:59 Last Admin: 10/27/18 18:37 Dose: 5 mg Hydroxyzine HCl (Vistaril) 50 mg PO HSZ PRN PRN Reason: Insomnia Stop: 11/24/18 15:13 Magnesium Hydroxide (Milk Of Magnesia) 30 ml PO DAILY PRN PRN Reason: Heartburn Stop: 11/24/18 15:13 Paliperidone (Invega) 6 mg PO DAILY HENRIK Stop: 11/26/18 08:59 Last Admin: 10/28/18 10:08 Dose: 6 mg Sodium Chloride ([place] Nasal) 1 - 2 sprays NA PRN PRN PRN Reason: Nasal Dryness/Congestion Stop: 11/24/18 15:13 Post Discharge Appointments Primary Care Physician Name Of Family Doctor: Jolly Shafer Therapist Name of Therapist: Celine Velazco [facility] Plodding Machine Operator Name of Plodding Machine Operator: Phyllis CANTU from [facility] CPT Code CPT Code 53741
[2018-10-28] MEDS: HALOPERIDOL 5 MG TAB PO PRN (18:20)
--- NOTE | 2018-10-29 08:56 | Psychiatric Progress Note ---
Date of Service October 29, 2018 Impression / Recommendations Impression 18 yo female who is post , admitted medically due to elevated LFTs after presenting with psychosis, on a 303 as of 10/26/18. She continues to display psychosis characterized by disorganized thinking, somatic and other delusional beliefs, and inability to attend to her own personal needs without the support of staff on an inpatient level of care. She has not followed through on outpatient mental health care or continued to take psychotropic medications after her last 3 hospital contacts. She is not able to care for herself or her infant due to her decompensated mental illness and inpatient treatment remains medically necessary. Treatment plan is to give oral Invega and HAWKINS sustenna if tolerating this medication and approval obtained by insurance. (1) Schizoaffective disorder, bipolar type: 10/26/18 -The plan is to discontinue risperidone and begin paliperidone (Invega) 6 mg daily, and then switch to Invega Sustenna as tolerated. -Nursing checks for unreported post- bleeding. -Reality testing and reassurances. 10/27/18 -Continue paliperidone (Invega) 6 mg daily, and then switch to Invega Sustenna as tolerated. -Nursing checks for unreported post- bleeding. -Reality testing and reassurances. -Family meeting 10/28/18 -Increase paliperidone (Invega) 6 mg qam and 3mg qhs, and then switch to Invega Sustenna as tolerated. -Nursing checks for unreported post- bleeding. -Reality testing and reassurances. -Family meeting 10/29 -Still awaiting prior authorization from insurance company to start Invega Sustenna. Fasting labs for monitoring on an atypical antipsychotic reviewed from 08/14/2018: triglycerides elevated 274, and cholesterol 271. Fasting glucose elevated 114. Will require ongoing monitoring and follow-up with PCP, Jolly Ramos. -Arrange family meeting with outpatient pillowcase turner and mother, explore options for supervised housing/fpc, and consider need for a 304 outpatient commitment, given history of repeated noncompliance with outpatient treatment. -Continue haloperidol 5 mg as needed for psychosis. -Encourage attention to ADLs and group attendance and participation. Inventory Assets Strengths: Active family support (mother) Needs: Adherence with outpatient treatment. Resolution of psychosis. Risk Factors Assessment Male: No : Yes Do You Have Access To A Gun?: No Health Problems: No (10-days ) Mental Health Diagnoses: Yes Substance Use Disorders: Yes Previous Attempt: Yes Previous Attempt; Highly Lethal: Yes Previous Psychiatric Hospitalization: Yes Hopelessness: Yes Smoker: No Protective Factors Assessment : No Responsible for Young Children: No ( baby currently being cared for by the patient's mother) Employed: No Stable Relationships: Yes Supportive Family: Yes Good Rapport with Provider: Yes Absence of Any Risk Factors Above: No (Nature of the patient's relationship with her outpatient provider is not known. However, she tells me that she likes her outpatient provider, but at the same time says that she will not follow his recommendations for treatment.) Interval History Identifying Information 18 y/o F with schizoaffective disorder bipolar type who is admitted on an involuntary commitment for psychosis and medication noncompliance. She is on a 303 as of 10/26/18. Chief Complaint "They're thinking of sending me to [facility]". Review of Systems Sleep Information Total Hours of Sleep: 7.75 Sleep Comments: pt on q-15 minute checks Meal Information Percent Meal Consumed - Breakfast: 100 Percent Meal Consumed - Lunch: 0 Percent Meal Consumed - Dinner: 100 Nutrition Comment: Still complains she is having difficulty swallowing Subjective Subjective Patient was seen & assessed and interval progress reviewed with Treatment Team. Staff report she remains paranoid, with ideas of reference, and received Haldol 5 mg prn yesterday. Her Invega was increased to 9mg daily. She refuses group at times, with ongoing somatic delusions, requiring frequent reassurance from staff. She requires staff encouragement to attend to her ADLs including personal hygiene. Her mother was contacted for collateral, and reported that the patient did not follow up with her PCP or therapist, and only saw her psychiatrist once, and then stopped taking her medication. She did not follow through with her agreement to communicate with her family, and return to her boyfriend's house after 1-2 weeks of living with her mother. Her mother is scheduling a meeting with the patient's pillowcase turner and CYS worker in the next week, and was not sure if the patient could return to her home due to her inability to follow through with the above issues as agreed. Staff has noted that her appetite is improving, and she has been spending time coloring. She requires frequent interventions for reality testing, often asking staff if things are real and if people can hear her when she speaks. On my assessment, the patient states that she is doing "okay," and struggles to explain what she has been working on since coming to the [facility] days ago. She denies side effects to medications, and says her thoughts are becoming clearer. She denies thoughts of harming herself or anyone else, and denies hallucinations. She continues to endorse anxiety and uncertainty about her discharge plans, and she is not sure where she will be living, stating "maybe with mommy," or maybe at a fpc. She then becomes fixated on contacting the fpc today. Physical Exam Psychiatric Orientation: alert and cooperative Apperance: appropriately dressed, + disheveled and appeared stated age Eye Contact: + poor eye contact Motor Behavior: steady gait and station and no abnormal motor movements Speech: normal rate/rhythm/volume of speech (Childlike tone) Affect: + blunted affect "Okay." Thought Process: + perseveration (On contacting the local fpc.) and + concrete thought process Thought Content: + cognitive distortions and + delusions (Somatic) Suicidal Thoughts: denies suicidal thoughts Homicidal Thoughts: denies homicidal thoughts Hallucinations: no auditory hallucinations Cognition: recent memory grossly intact, attention grossly intact and language grossly intact Estimated Intelligence: + below average estimated intelligence Insight: + impaired insight Judgement: + impaired judgement Vital Signs (Past 24 Hours) Last Vital Signs Temp 37.1 C 10/29/18 06:46 Pulse 73 10/29/18 06:47 Resp 16 10/29/18 06:46 BP 102/61 10/29/18 06:47 Results & Data Current Inpatient Medications Current Inpatient Medications: Current Inpatient Medications Acetaminophen (Tylenol) 650 mg PO Q4H PRN PRN Reason: Headache or Minor Fever Stop: 11/24/18 15:13 Last Admin: 10/27/18 10:23 Dose: 650 mg Al Hydrox/Mg Hydrox/Simethicone (Maalox) 30 ml PO Q4H PRN PRN Reason: GI Upset Stop: 11/24/18 15:13 Bismuth Subsalicylate (Kaopectate) 15 ml PO PRN PRN PRN Reason: Loose Stool Stop: 11/24/18 15:13 Haloperidol (Haldol) 5 mg PO BID PRN PRN Reason: Anxiety/Agitation Stop: 11/26/18 20:59 Last Admin: 10/28/18 18:20 Dose: 5 mg Hydroxyzine HCl (Vistaril) 50 mg PO HSZ PRN PRN Reason: Insomnia Stop: 11/24/18 15:13 Magnesium Hydroxide (Milk Of Magnesia) 30 ml PO DAILY PRN PRN Reason: Heartburn Stop: 11/24/18 15:13 Paliperidone (Invega) 6 mg PO DAILY HENRIK Stop: 11/26/18 08:59 Last Admin: 10/28/18 10:08 Dose: 6 mg Paliperidone (Invega) 3 mg PO HS HENRIK Stop: 11/27/18 21:59 Last Admin: 10/28/18 21:03 Dose: 3 mg Sodium Chloride ([place] Nasal) 1 - 2 sprays NA PRN PRN PRN Reason: Nasal Dryness/Congestion Stop: 11/24/18 15:13 Post Discharge Appointments Primary Care Physician Name Of Family Doctor: Jolly Shafer Therapist Name of Therapist: Celine Velazco [facility] Mail Machine Operator Name of Mail Machine Operator: Phyllis CANTU from [facility] CPT Code CPT Code 02544
[2018-10-29] MEDS: PALIPERIDONE 3 MG TABCR PO SCH ×2 (09:28→21:18)
[2018-10-29] MEDS: HALOPERIDOL 5 MG TAB PO PRN (11:13)
[2018-10-29] MEDS: ACETAMINOPHEN 325 MG TAB PO PRN (17:54)
--- NOTE | 2018-10-30 07:49 | Psychiatric Progress Note ---
Date of Service October 30, 2018 Impression / Recommendations Impression 18 yo female who is post (gave to her son on 10/15/2018), presented with psychosis on 10/18/2018 and was initially admitted medically due to elevated LFTs. She was medically stabilized and transferred to the behavioral health unit 10/25/2018 on a 302 involuntary commitment, and is on a 303 as of . She continues to display psychosis characterized by disorganized thinking and somatic and other delusional beliefs, and is unable to attend to her own personal needs without the support of staff on an inpatient level of care. She has not followed through on outpatient mental health care or continued to take psychotropic medications after her last 3 hospital contacts. She is not able to care for herself or her infant due to her decompensated mental illness and inpatient treatment remains medically necessary. Treatment plan is to give oral Invega and HAWKINS sustenna if tolerating this medication and approval obtained by insurance, referral to a halfway, and an outpatient involuntary commitment at the time of discharge. (1) Schizoaffective disorder, bipolar type: 10/26/18 -The plan is to discontinue risperidone and begin paliperidone (Invega) 6 mg daily, and then switch to Invega Sustenna as tolerated. -Nursing checks for unreported post- bleeding. -Reality testing and reassurances. 10/27/18 -Continue paliperidone (Invega) 6 mg daily, and then switch to Invega Sustenna as tolerated. -Nursing checks for unreported post- bleeding. -Reality testing and reassurances. -Family meeting 10/28/18 -Increase paliperidone (Invega) 6 mg qam and 3mg qhs, and then switch to Invega Sustenna as tolerated. -Nursing checks for unreported post- bleeding. -Reality testing and reassurances. -Family meeting 10/29 -Still awaiting prior authorization from insurance company to start Invega Sustenna. Fasting labs for monitoring on an atypical antipsychotic reviewed from 08/14/2018: triglycerides elevated 274, and cholesterol 271. Fasting glucose elevated 114. Will require ongoing monitoring and follow-up with PCP, Jolly Ramos. -Arrange family meeting with outpatient case reviewer and mother, explore options for supervised housing/halfway, and consider need for a 304 outpatient commitment, given history of repeated noncompliance with outpatient treatment. -Continue haloperidol 5 mg as needed for psychosis. -Encourage attention to ADLs and group attendance and participation. 10/30 -Staff to follow up on Invega Budenna prior authorization, as it was submitted 5 days ago. -Continue oral Invega in the interim, and haloperidol as needed. -Outpatient case reviewer will visit with the patient tomorrow to start CRR referral process. She is also in support of an involuntary commitment at the time of discharge. -Recommend family meeting with parents, outpatient case reviewer, and CYS case reviewer prior to discharge. Inventory Assets Strengths: Active family support (mother) Needs: Adherence with outpatient treatment. Resolution of psychosis. Risk Factors Assessment Male: No : Yes Do You Have Access To A Gun?: No Health Problems: No (10-days ) Mental Health Diagnoses: Yes Substance Use Disorders: Yes Previous Attempt: Yes Previous Attempt; Highly Lethal: Yes Previous Psychiatric Hospitalization: Yes Hopelessness: Yes Smoker: No Protective Factors Assessment : No Responsible for Young Children: No (Halbur baby currently being cared for by FOAna Laura and his mother) Employed: No Stable Relationships: Yes Supportive Family: Yes Good Rapport with Provider: Yes Absence of Any Risk Factors Above: No (Nature of the patient's relationship with her outpatient provider is not known. However, she tells me that she likes her outpatient provider, but at the same time says that she will not follow his recommendations for treatment.) Interval History Identifying Information 18 y/o F with schizoaffective disorder bipolar type who is admitted on an involuntary commitment for psychosis and medication noncompliance. She is on a 303 as of 10/26/18. Chief Complaint "Okay". Review of Systems Sleep Information Total Hours of Sleep: 8 Sleep Comments: pt on q-15 minute checks Meal Information Percent Meal Consumed - Breakfast: 100 Percent Meal Consumed - Lunch: 75 Percent Meal Consumed - Dinner: 90 Nutrition Comment: Still complains she is having difficulty swallowing Subjective Subjective Patient was seen & assessed and interval progress reviewed with Nursing and social work. Staff reports she continues to receive haloperidol 5 mg prn daily for psychosis, as well as paliperidone 9 mg daily. She attended some groups, but had difficulty participating appropriately, and remains preoccupied with somatic delusions (that her tongue was in her forehead, that she could not swallow or speak), and disorganized in her thinking. She responds well to staff redirection. She declined some groups due to anxiety and inability to tolerate the group. She was focused on contacting the [facility] CR[facility], but they were unable to be reached due to the holiday. Her outpatient case reviewer was contacted this morning and is in support of referral to the CRR, and will meet with the patient tomorrow to start the application process. She also supports a 304 outpatient commitment. On my assessment, the patient was seen in her room where she had returned to bed. She states that mood is "okay" this morning, but has had low mood at times when she is worried about somatic problems, specifically that something is wrong with her throat, head, or tongue. She states she had tongue pain yesterday, although it has resolved today, but continues to feel as if she has to swallow a lot, and at times thinks that she is unable to speak, although she is speaking clearly. She denies pain currently, symptoms of URI, muscle stiffness, and pain elsewhere. She denies auditory hallucinations, suicidal thoughts, and thoughts of harming others. She feels safe here. She reports a good visit with her mother and stepfather. She does not feel able to go to groups currently, but states she will try to attend later today. Physical Exam Psychiatric Orientation: alert, oriented to person, oriented to place and cooperative Apperance: appropriately dressed, + disheveled and appeared stated age Lying in bed, awake, listening to the sound machine. Eye Contact: + poor eye contact Motor Behavior: no abnormal motor movements Minimal, childlike tone. Affect: + blunted affect "Okay." Thought Process: + concrete thought process Thought Content: + delusions (Somatic) Suicidal Thoughts: denies suicidal thoughts Homicidal Thoughts: denies homicidal thoughts Hallucinations: no auditory hallucinations and no visual hallucinations Cognition: attention grossly intact and language grossly intact Estimated Intelligence: + below average estimated intelligence Insight: + limited insight Judgement: + limited judgement Vital Signs (Past 24 Hours) Last Vital Signs Temp 36.7 C 10/30/18 06:46 Pulse 81 10/30/18 06:47 Resp 16 10/30/18 06:46 BP 111/70 10/30/18 06:47 Results & Data Current Inpatient Medications Current Inpatient Medications: Current Inpatient Medications Acetaminophen (Tylenol) 650 mg PO Q4H PRN PRN Reason: Headache or Minor Fever Stop: 11/24/18 15:13 Last Admin: 10/29/18 17:54 Dose: 650 mg Al Hydrox/Mg Hydrox/Simethicone (Maalox) 30 ml PO Q4H PRN PRN Reason: GI Upset Stop: 11/24/18 15:13 Bismuth Subsalicylate (Kaopectate) 15 ml PO PRN PRN PRN Reason: Loose Stool Stop: 11/24/18 15:13 Haloperidol (Haldol) 5 mg PO BID PRN PRN Reason: Anxiety/Agitation Stop: 11/26/18 20:59 Last Admin: 10/29/18 11:13 Dose: 5 mg Hydroxyzine HCl (Vistaril) 50 mg PO HSZ PRN PRN Reason: Insomnia Stop: 11/24/18 15:13 Magnesium Hydroxide (Milk Of Magnesia) 30 ml PO DAILY PRN PRN Reason: Heartburn Stop: 11/24/18 15:13 Paliperidone (Invega) 6 mg PO DAILY HENRIK Stop: 11/26/18 08:59 Last Admin: 10/29/18 09:28 Dose: 6 mg Paliperidone (Invega) 3 mg PO HS HENRIK Stop: 11/27/18 21:59 Last Admin: 10/29/18 21:18 Dose: 3 mg Sodium Chloride ([place] Nasal) 1 - 2 sprays NA PRN PRN PRN Reason: Nasal Dryness/Congestion Stop: 11/24/18 15:13 Post Discharge Appointments Primary Care Physician Name Of Family Doctor: Jolly Shafer Therapist Name of Therapist: Celine Velazco [facility] Locomotive [employer]ating Systems Clerk Name of Locomotive [employer] Clerk: Phyllis CANTU from [facility] CPT Code CPT Code 82147
[2018-10-30] MEDS: PALIPERIDONE 3 MG TABCR PO SCH ×2 (09:02→21:30)
--- NOTE | 2018-10-31 07:36 | Psychiatric Progress Note ---
Date of Service October 31, 2018 Impression / Recommendations Impression 18 yo female with schizoaffective disorder bipolar type who is post ( gave to her son on 10/15/2018), presented with psychosis on 10/18/2018 and was initially admitted medically due to elevated LFTs. She was medically stabilized and transferred to the behavioral health unit 10/25/2018 on a 302 involuntary commitment, and is on a 303 as of 10/26/18. She continues to display psychosis characterized by disorganized thinking and somatic and other delusional beliefs, and is unable to attend to her own personal needs without the support of staff on an inpatient level of care. She has not followed through on outpatient mental health care or continued to take psychotropic medications after her last 3 hospital contacts, and the current recommendations are for long-acting injectable and involuntary outpatient commitment. She is not able to care for herself or her infant due to her decompensated mental illness and inpatient treatment remains medically necessary. Today she will meet with her pillowcase cleaner to start the process of referral to a skilled nursing. (1) Schizoaffective disorder, bipolar type: 10/26/18 -The plan is to discontinue risperidone and begin paliperidone (Invega) 6 mg daily, and then switch to Invega Sustenna as tolerated. -Nursing checks for unreported post- bleeding. -Reality testing and reassurances. 10/27/18 -Continue paliperidone (Invega) 6 mg daily, and then switch to Invega Sustenna as tolerated. -Nursing checks for unreported post- bleeding. -Reality testing and reassurances. -Family meeting 10/28/18 -Increase paliperidone (Invega) 6 mg qam and 3mg qhs, and then switch to Invega Sustenna as tolerated. -Nursing checks for unreported post- bleeding. -Reality testing and reassurances. -Family meeting 10/29 -Still awaiting prior authorization from insurance company to start Invega Sustenna. Fasting labs for monitoring on an atypical antipsychotic reviewed from 08/14/2018: triglycerides elevated 274, and cholesterol 271. Fasting glucose elevated 114. Will require ongoing monitoring and follow-up with PCP, Jolly Ramos. -Arrange family meeting with outpatient pillowcase cleaner and mother, explore options for supervised housing/skilled nursing, and consider need for a 304 outpatient commitment, given history of repeated noncompliance with outpatient treatment. -Continue haloperidol 5 mg as needed for psychosis. -Encourage attention to ADLs and group attendance and participation. 10/30 -Staff to follow up on Yolanda Pham prior authorization, as it was submitted 5 days ago. -Continue oral Invega in the interim, and haloperidol as needed. -Outpatient pillowcase cleaner will visit with the patient tomorrow to start CRR referral process. She is also in support of an involuntary commitment at the time of discharge. -Recommend family meeting with parents, outpatient pillowcase cleaner, and CYS pillowcase cleaner prior to discharge. 10/31 -PA for Yolanda Pham resubmitted yesterday, await response from insurance. -Meet with pillowcase cleaner today for CRR referral. -We will need family meeting with mother, pillowcase cleaner, CYS pillowcase cleaner, and hospital staff prior to discharge. Inventory Assets Strengths: Active family support (mother) Needs: Adherence with outpatient treatment. Resolution of psychosis. Risk Factors Assessment Male: No : Yes Do You Have Access To A Gun?: No Health Problems: No (10-days ) Mental Health Diagnoses: Yes Substance Use Disorders: Yes Previous Attempt: Yes Previous Attempt; Highly Lethal: Yes Previous Psychiatric Hospitalization: Yes Hopelessness: Yes Smoker: No Protective Factors Assessment : No Responsible for Young Children: No ( baby currently being cared for by FOB and his mother) Employed: No Stable Relationships: Yes Supportive Family: Yes Good Rapport with Provider: Yes Absence of Any Risk Factors Above: No (Nature of the patient's relationship with her outpatient provider is not known. However, she tells me that she likes her outpatient provider, but at the same time says that she will not follow his recommendations for treatment.) Interval History Identifying Information 18 y/o F with schizoaffective disorder bipolar type who is admitted on an involuntary commitment for psychosis and medication noncompliance. She is on a 303 as of 10/26/18. Chief Complaint "When do you think I can leave?" Review of Systems Sleep Information Total Hours of Sleep: 9.25 Sleep Comments: pt on q-15 minute checks Meal Information Percent Meal Consumed - Breakfast: 30 Percent Meal Consumed - Lunch: 90 Percent Meal Consumed - Dinner: 100 Nutrition Comment: Still complains she is having difficulty swallowing Subjective Subjective Patient was seen & assessed and interval progress reviewed with Treatment Team. Staff report the patient's family visited last evening, and her boyfriend's mother brought the patient's infant son. sawmill production worker spoke with the patient' s mother, who is hopeful that the patient will be able to get into the CRR. The patient had difficulty tolerating groups, continues to endorse delusions that she is another patient on the unit, and requires frequent reassurance and assistance with reality checking. Her pillowcase cleaner is coming in today to start the referral process to the CRR. On my assessment, the patient is focused on discharge and when she will be able to go to the CRR. Reviewed discharge plans thus far, including recommendations to transition to a long-acting injectable once it is approved by her insurance, the need for an opening at the CRR, and transition to an involuntary outpatient commitment. The patient is looking forward to meeting with her pillowcase cleaner today. She reports mood is improving, thinking is clearer than on admission, and denies hallucinations. She continues to experience delusional thinking, at times is unsure of who she is, thinks she is another person, and thinks that there is something wrong with her head/neck/mouth and ability to speak. Physical Exam Psychiatric Orientation: alert and cooperative Apperance: appropriately dressed, + disheveled and appeared stated age Eye Contact: + fair eye contact Motor Behavior: steady gait and station and no abnormal motor movements Speech: normal rate/rhythm/volume of speech (Childlike tone) Affect: + blunted affect More excited when discussing discharge plans. Mood: + anxious mood; no depressed mood Thought Process: goal directed thought process and + concrete thought process Thought Content: + preoccupation (With when she will be discharged) and + delusions Suicidal Thoughts: denies suicidal thoughts Homicidal Thoughts: denies homicidal thoughts Hallucinations: no auditory hallucinations Cognition: recent memory grossly intact and language grossly intact Estimated Intelligence: + below average estimated intelligence Insight: + impaired insight Judgement: + impaired judgement Vital Signs (Past 24 Hours) Last Vital Signs Temp 36.8 C 10/31/18 06:26 Pulse 83 10/31/18 06:26 Resp 16 10/31/18 06:26 BP 123/80 10/31/18 06:26 Results & Data Current Inpatient Medications Current Inpatient Medications: Current Inpatient Medications Acetaminophen (Tylenol) 650 mg PO Q4H PRN PRN Reason: Headache or Minor Fever Stop: 11/24/18 15:13 Last Admin: 10/29/18 17:54 Dose: 650 mg Al Hydrox/Mg Hydrox/Simethicone (Maalox) 30 ml PO Q4H PRN PRN Reason: GI Upset Stop: 11/24/18 15:13 Bismuth Subsalicylate (Kaopectate) 15 ml PO PRN PRN PRN Reason: Loose Stool Stop: 11/24/18 15:13 Haloperidol (Haldol) 5 mg PO BID PRN PRN Reason: Anxiety/Agitation Stop: 11/26/18 20:59 Last Admin: 10/29/18 11:13 Dose: 5 mg Hydroxyzine HCl (Vistaril) 50 mg PO HSZ PRN PRN Reason: Insomnia Stop: 11/24/18 15:13 Magnesium Hydroxide (Milk Of Magnesia) 30 ml PO DAILY PRN PRN Reason: Heartburn Stop: 11/24/18 15:13 Paliperidone (Invega) 6 mg PO DAILY HENRIK Stop: 11/26/18 08:59 Last Admin: 10/30/18 09:02 Dose: 6 mg Paliperidone (Invega) 3 mg PO HS HENRIK Stop: 11/27/18 21:59 Last Admin: 10/30/18 21:30 Dose: 3 mg Sodium Chloride ([place] Nasal) 1 - 2 sprays NA PRN PRN PRN Reason: Nasal Dryness/Congestion Stop: 11/24/18 15:13 Post Discharge Appointments Primary Care Physician Name Of Family Doctor: Jolly Shafer Therapist Name of Therapist: Celine Velazco [facility] Pharmaceutical Plant Operator Name of Pharmaceutical Plant Operator: Phyllis CANTU from [facility] CPT Code CPT Code 39500
[2018-10-31] MEDS: PALIPERIDONE 3 MG TABCR PO SCH ×2 (09:09→21:17)
[2018-10-31] MEDS ORDERED: PALIPERIDONE PALMITATE 234 MG/1.5 ML SYR IM STA (14:20)
[2018-10-31] MEDS: HALOPERIDOL 5 MG TAB PO PRN (14:23)
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
[2018-11-01] MEDS: PALIPERIDONE 3 MG TABCR PO SCH ×2 (08:28→21:11)
[2018-11-01] MEDS: NICOTINE 7 MG/24 HR TDSY TD SCH (14:25)
[2018-11-01] MEDS: HALOPERIDOL 5 MG TAB PO PRN (17:11)
[2018-11-02] MEDS: PALIPERIDONE 3 MG TABCR PO SCH ×2 (09:17→21:35)
[2018-11-02] MEDS: NICOTINE 7 MG/24 HR TDSY TD SCH (09:18)
[2018-11-02] MEDS: HALOPERIDOL 5 MG TAB PO PRN (13:46)
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
--- NOTE | 2018-11-03 07:25 | Psychiatric Progress Note ---
Date of Service November 03, 2018 Impression / Recommendations Impression This 18 y/o female with schizoaffective disorder bipolar type is psychiatrically hospitalized due to grave disability associated with her mental illness. Although there has been some improvement in her psychotic symptoms and ability to function, she remains delusional, perseverative, cognitively impaired, and dependent on others to meet her basic needs. She has been started on a long-acting injectable antipsychotic due to her history of poor compliance, and a discharge planning meeting is scheduled for 11/07. She is on a 303 involuntary commitment, and ongoing inpatient treatment is medically necessary due to the risk for harm to herself if discharged. (1) Schizoaffective disorder, bipolar type: 10/26/18 -The plan is to discontinue risperidone and begin paliperidone (Invega) 6 mg daily, and then switch to Invega Sustenna as tolerated. -Nursing checks for unreported post- bleeding. -Reality testing and reassurances. 10/27/18 -Continue paliperidone (Invega) 6 mg daily, and then switch to Invega Sustenna as tolerated. -Nursing checks for unreported post- bleeding. -Reality testing and reassurances. -Family meeting 10/28/18 -Increase paliperidone (Invega) 6 mg qam and 3mg qhs, and then switch to Invega Sustenna as tolerated. -Nursing checks for unreported post- bleeding. -Reality testing and reassurances. -Family meeting 10/29 -Still awaiting prior authorization from insurance company to start Invega Sustenna. Fasting labs for monitoring on an atypical antipsychotic reviewed from 08/14/2018: triglycerides elevated 274, and cholesterol 271. Fasting glucose elevated 114. Will require ongoing monitoring and follow-up with PCP, Jolly Ramos. -Arrange family meeting with outpatient dependency case manager and mother, explore options for supervised housing/care home, and consider need for a 304 outpatient commitment, given history of repeated noncompliance with outpatient treatment. -Continue haloperidol 5 mg as needed for psychosis. -Encourage attention to ADLs and group attendance and participation. 10/30 -Staff to follow up on Invega Sustenna prior authorization, as it was submitted 5 days ago. -Continue oral Invega in the interim, and haloperidol as needed. -Outpatient dependency case manager will visit with the patient tomorrow to start CRR referral process. She is also in support of an involuntary commitment at the time of discharge. -Recommend family meeting with parents, outpatient dependency case manager, and [facility] dependency case manager prior to discharge. 10/31 -PA for Invega Sustenna resubmitted yesterday, await response from insurance. -Meet with dependency case manager today for CRR referral. -We will need family meeting with mother, dependency case manager, CYS dependency case manager, and hospital staff prior to discharge. 11/01 -Insurance approved Sustenna, and received the first loading dose of 234mg IM yesterday, and second loading dose 156mg is ordered for 11/07/18. Continue po Invega and start taper after second loading dose, as patient still actively psychotic and receiving Haldol prns. -CRR referral started, f/u with CM re: bed availabililty. Schedule meeting with outpatient dependency case manager, C[facility] dependency case manager, and mother for discharge planning. Once we have a discharge date, will file for 304 outpatient commitment. 11/02 - Requesting PRN Haldol daily for anxiety and receiving Haldol 5mg in response. She reports that this "helps." However, she currently has cogwheel rigidity in her left arm when tested by me today, and it may be that akinesthesia may be contributing to her reported nervousness. - Trial of benadryl. - Meeting next week with C[facility] dependency case manager, outpaient dependency case manager, and her mother. (Availability of the CYS dependency case manager uncertain at this time.) - We will be exploring the option of allowing the patient to go home and wait for a CRR bed as the patient's condition improves. 11/03 -Continue haloperidol 5 mg as needed, oral paliperidone 9 mg daily, and will receive second Invega Sustenna dose on 11/07/2018. Can then start taper of oral paliperidone. Inventory Assets Strengths: Active family support (mother) Needs: Adherence with outpatient treatment. Resolution of psychosis. Risk Factors Assessment Male: No : Yes Do You Have Access To A Gun?: No Health Problems: No (10-days ) Mental Health Diagnoses: Yes Substance Use Disorders: Yes Previous Attempt: Yes Previous Attempt; Highly Lethal: Yes Previous Psychiatric Hospitalization: Yes Hopelessness: Yes Smoker: No Protective Factors Assessment : No Responsible for Young Children: No ( baby currently being cared for by FOB and his mother) Employed: No Stable Relationships: Yes Supportive Family: Yes Good Rapport with Provider: Yes Absence of Any Risk Factors Above: No (Nature of the patient's relationship with her outpatient provider is not known. However, she tells me that she likes her outpatient provider, but at the same time says that she will not follow his recommendations for treatment.) Interval History Identifying Information 18 y/o F with schizoaffective disorder bipolar type who is admitted on an involuntary commitment for psychosis and medication noncompliance. She is on a 303 as of 10/26/18. Chief Complaint "Could I please may be go home earlier?" Review of Systems Sleep Information Total Hours of Sleep: 9.75 Sleep Comments: awakened once briefly at 0150 due to hospital fire bells ringing. Meal Information Percent Meal Consumed - Breakfast: 100 Percent Meal Consumed - Lunch: 100 Percent Meal Consumed - Dinner: 75 Nutrition Comment: Still complains she is having difficulty swallowing Subjective Subjective Patient was seen & assessed and interval progress reviewed with nursing and social work. Staff report she remains psychotic, with ongoing delusions, and a meeting has been scheduled with her mother, dependency case manager and CYS next Mon. She continues to get Haldol prn daily. Diphenhydramine was ordered for sleep and restlessness. On my assessment, the patient is focused on when she can be discharged, asking to "go earlier." She continues to state that she believes she can go live with "mommy," and again reminded her that family is hopeful she can go to a care home, as they do not feel able to meet her needs. Also reviewed that at this time, the referral to the care home has been placed, but we do not have an accepting facility. In addition, reviewed the need to further stabilize her psychiatric symptoms and convert her to an involuntary outpatient commitment prior to discharge. She expressed understanding, but then repeatedly approached this physician, asking the same questions again. She denies side effects to medications and feels they are helpful. Physical Exam Mental Examination Well-nourished well-developed white female appearing her stated age. Casually dressed in baggy clothes, with adequate grooming and hygiene. Calm and cooperative with the interview. Initially lying in bed, awake, holding a stuffed animal, and later walking around the unit. Normal gait and station, no abnormal movements. Alert and oriented. Mood is "okay," and affect is blunted. Speech is childlike tone. Thoughts are perseverative and concrete. Level of intelligence estimated to be below average. Insight and judgment are impaired. Vital Signs (Past 24 Hours) Last Vital Signs Temp 36.9 C 11/03/18 06:32 Pulse 90 11/03/18 06:33 Resp 16 11/03/18 06:32 BP 94/58 L 11/03/18 06:33 Results & Data Current Inpatient Medications Current Inpatient Medications: Current Inpatient Medications Acetaminophen (Tylenol) 650 mg PO Q4H PRN PRN Reason: Headache or Minor Fever Stop: 11/24/18 15:13 Last Admin: 10/29/18 17:54 Dose: 650 mg Al Hydrox/Mg Hydrox/Simethicone (Maalox) 30 ml PO Q4H PRN PRN Reason: GI Upset Stop: 11/24/18 15:13 Bismuth Subsalicylate (Kaopectate) 15 ml PO PRN PRN PRN Reason: Loose Stool Stop: 11/24/18 15:13 Haloperidol (Haldol) 5 mg PO BID PRN PRN Reason: Anxiety/Agitation Stop: 11/26/18 20:59 Last Admin: 11/02/18 13:46 Dose: 5 mg Hydroxyzine HCl (Vistaril) 50 mg PO HSZ PRN PRN Reason: Insomnia Stop: 11/24/18 15:13 Magnesium Hydroxide (Milk Of Magnesia) 30 ml PO DAILY PRN PRN Reason: Heartburn Stop: 11/24/18 15:13 Miscellaneous (Remove Nicoderm Patch) 1 ea N/A HS [facility] Stop: 12/01/18 21:59 Last Admin: 11/02/18 21:38 Dose: Not Given Nicotine (Nicoderm Cq) 7 mg TD QAM [facility]RIK Stop: 12/01/18 13:59 Last Admin: 11/02/18 09:18 Dose: 7 mg Paliperidone (Invega) 6 mg PO DAILY [facility]RIK Stop: 11/26/18 08:59 Last Admin: 11/02/18 09:17 Dose: 6 mg Paliperidone (Invega) 3 mg PO HS HENRIK Stop: 11/27/18 21:59 Last Admin: 11/02/18 21:35 Dose: 3 mg Paliperidone Palmitate (Invega Sustenna) 156 mg IM ONE ONE Stop: 11/07/18 09:01 Sodium Chloride ([place] Nasal) 1 - 2 sprays NA PRN PRN PRN Reason: Nasal Dryness/Congestion Stop: 11/24/18 15:13 Post Discharge Appointments Primary Care Physician Name Of Family Doctor: Jolly Shafer Therapist Name of Therapist: Celine Velazco [facility] Psychiatry Sleep Tech Name of Sleep Tech: Phyllis CANTU from [facility] CPT Code CPT Code 48415
[2018-11-03] MEDS: PALIPERIDONE 3 MG TABCR PO SCH ×2 (08:22→21:12)
[2018-11-03] MEDS: NICOTINE 7 MG/24 HR TDSY TD SCH (08:23)
--- NOTE | 2018-11-04 08:29 | Psychiatric Progress Note ---
Date of Service November 04, 2018 Impression / Recommendations Impression This 18 y/o female with schizoaffective disorder bipolar type who is psychiatrically hospitalized due to grave disability associated with her mental illness. Although there has been some improvement in her psychotic symptoms and ability to function, she remains delusional, perseverative, cognitively impaired, and dependent on others to meet her basic needs. She has been started on a long-acting injectable antipsychotic due to her history of poor compliance, and a discharge planning meeting is scheduled for 11/07. She is on a 303 involuntary commitment, and will file for a 304 outpatient commitment prior to discharge. Ongoing inpatient treatment is medically necessary due to the risk for harm to herself if discharged. (1) Schizoaffective disorder, bipolar type: 10/26/18 -The plan is to discontinue risperidone and begin paliperidone (Invega) 6 mg daily, and then switch to Invega Sustenna as tolerated. -Nursing checks for unreported post- bleeding. -Reality testing and reassurances. 10/27/18 -Continue paliperidone (Invega) 6 mg daily, and then switch to Invega Sustenna as tolerated. -Nursing checks for unreported post- bleeding. -Reality testing and reassurances. -Family meeting 10/28/18 -Increase paliperidone (Invega) 6 mg qam and 3mg qhs, and then switch to Invega Sustenna as tolerated. -Nursing checks for unreported post- bleeding. -Reality testing and reassurances. -Family meeting 10/29 -Still awaiting prior authorization from insurance company to start Invega Sustenna. Fasting labs for monitoring on an atypical antipsychotic reviewed from 08/14/2018: triglycerides elevated 274, and cholesterol 271. Fasting glucose elevated 114. Will require ongoing monitoring and follow-up with PCP, Jolly Ramos. -Arrange family meeting with outpatient returned case inspector and mother, explore options for supervised housing/fpc, and consider need for a 304 outpatient commitment, given history of repeated noncompliance with outpatient treatment. -Continue haloperidol 5 mg as needed for psychosis. -Encourage attention to ADLs and group attendance and participation. 10/30 -Staff to follow up on Invega Sustenna prior authorization, as it was submitted 5 days ago. -Continue oral Invega in the interim, and haloperidol as needed. -Outpatient returned case inspector will visit with the patient tomorrow to start CRR referral process. She is also in support of an involuntary commitment at the time of discharge. -Recommend family meeting with parents, outpatient returned case inspector, and C[facility] returned case inspector prior to discharge. 10/31 -PA for Invega Sustenna resubmitted yesterday, await response from insurance. -Meet with returned case inspector today for CRR referral. -We will need family meeting with mother, returned case inspector, CYS returned case inspector, and hospital staff prior to discharge. 11/01 -Insurance approved Sustenna, and received the first loading dose of 234mg IM yesterday, and second loading dose 156mg is ordered for 11/07/18. Continue po Invega and start taper after second loading dose, as patient still actively psychotic and receiving Haldol prns. -CRR referral started, f/u with CM re: bed availabililty. Schedule meeting with outpatient returned case inspector, CYS returned case inspector, and mother for discharge planning. Once we have a discharge date, will file for 304 outpatient commitment. 11/02 - Requesting PRN Haldol daily for anxiety and receiving Haldol 5mg in response. She reports that this "helps." However, she currently has cogwheel rigidity in her left arm when tested by me today, and it may be that akinesthesia may be contributing to her reported nervousness. - Trial of benadryl. - Meeting next week with CYS returned case inspector, outpaient returned case inspector, and her mother. (Availability of the [facility] returned case inspector uncertain at this time.) - We will be exploring the option of allowing the patient to go home and wait for a CRR bed as the patient's condition improves. 11/03 -Continue haloperidol 5 mg as needed, oral paliperidone 9 mg daily, and will receive second Invega Sustenna dose on 11/07/2018. Can then start taper of oral paliperidone. 11/04 -patient reports diphenhydramine has been helpful for restlessness, so will use as needed. Inventory Assets Strengths: Active family support (mother) Needs: Adherence with outpatient treatment. Resolution of psychosis. Risk Factors Assessment Male: No : Yes Do You Have Access To A Gun?: No Health Problems: No (10-days ) Mental Health Diagnoses: Yes Substance Use Disorders: Yes Previous Attempt: Yes Previous Attempt; Highly Lethal: Yes Previous Psychiatric Hospitalization: Yes Hopelessness: Yes Smoker: No Protective Factors Assessment : No Responsible for Young Children: No ([place] baby currently being cared for by FOAna Laura and his mother) Employed: No Stable Relationships: Yes Supportive Family: Yes Good Rapport with Provider: Yes Absence of Any Risk Factors Above: No (Nature of the patient's relationship with her outpatient provider is not known. However, she tells me that she likes her outpatient provider, but at the same time says that she will not follow his recommendations for treatment.) Interval History Identifying Information 18 y/o F with schizoaffective disorder bipolar type who is admitted on an involuntary commitment for psychosis and medication noncompliance. She is on a 303 as of 10/26/18. Chief Complaint "I feel very good today, Mommy visited". Review of Systems Sleep Information Total Hours of Sleep: 9.25 Sleep Comments: awakened once briefly at 0150 due to hospital fire bells ringing. Meal Information Percent Meal Consumed - Breakfast: 100 Percent Meal Consumed - Lunch: 100 Percent Meal Consumed - Dinner: 100 Nutrition Comment: Still complains she is having difficulty swallowing Subjective Subjective Patient was seen & assessed and interval progress reviewed with Nursing. Staff report she had a good visit with her mother last night. She is frequently on the phone with her boyfriend. On my assessment, she is focused on discharge, asking when she can be discharged. Again reviewed the plan, including the need for her second Invega Sustenna dose, the 304 outpatient commitment hearing, and the meeting with her returned case inspector and family on Monday. Per staff, her mother suggested that it might be better for the patient to live with her father , so will invite him to the meeting as well. Physical Exam Mental Examination Well-nourished well-developed white female appearing her stated age. Casually dressed in baggy clothes, adequate hygiene and grooming. Seated in no acute distress, with good eye contact and no abnormal movements. Alert and oriented, and cooperative with the assessment. Mood is "really good," and affect is euthymic and congruent. Speech is spontaneous, normal rate, volume, and tone. Thoughts are concrete, goal-directed and focused on discharge plans. She denies SI, HI, hallucinations, and paranoia. No delusions are voiced. Level of intelligence is estimated to be below average, and memory is impaired as evidenced by repeatedly asking the same questions regarding discharge plans. Insight and judgment are limited. Vital Signs (Past 24 Hours) Last Vital Signs Temp 36.5 C 11/04/18 06:21 Pulse 96 H 11/04/18 06:22 Resp 18 11/04/18 06:21 BP 100/63 11/04/18 06:22 Results & Data Current Inpatient Medications Current Inpatient Medications: Current Inpatient Medications Acetaminophen (Tylenol) 650 mg PO Q4H PRN PRN Reason: Headache or Minor Fever Stop: 11/24/18 15:13 Last Admin: 10/29/18 17:54 Dose: 650 mg Al Hydrox/Mg Hydrox/Simethicone (Maalox) 30 ml PO Q4H PRN PRN Reason: GI Upset Stop: 11/24/18 15:13 Bismuth Subsalicylate (Kaopectate) 15 ml PO PRN PRN PRN Reason: Loose Stool Stop: 11/24/18 15:13 Diphenhydramine HCl (Benadryl) 50 mg PO Q6 PRN PRN Reason: restlessness Stop: 12/03/18 10:21 Last Admin: 11/03/18 17:32 Dose: 50 mg Haloperidol (Haldol) 5 mg PO BID PRN PRN Reason: Anxiety/Agitation Stop: 11/26/18 20:59 Last Admin: 11/02/18 13:46 Dose: 5 mg Hydroxyzine HCl (Vistaril) 50 mg PO HSZ PRN PRN Reason: Insomnia Stop: 11/24/18 15:13 Magnesium Hydroxide (Milk Of Magnesia) 30 ml PO DAILY PRN PRN Reason: Heartburn Stop: 11/24/18 15:13 Miscellaneous (Remove Nicoderm Patch) 1 ea N/A HS [facility] Stop: 12/01/18 21:59 Last Admin: 11/03/18 21:15 Dose: 1 ea Nicotine (Nicoderm Cq) 7 mg TD QAM [facility] Stop: 12/01/18 13:59 Last Admin: 11/03/18 08:23 Dose: 7 mg Paliperidone (Invega) 6 mg PO DAILY [facility] Stop: 11/26/18 08:59 Last Admin: 11/03/18 08:22 Dose: 6 mg Paliperidone (Invega) 3 mg PO HS [facility]EN[facility]K Stop: 11/27/18 21:59 Last Admin: 11/03/18 21:12 Dose: 3 mg Paliperidone Palmitate (Invega Sustenna) 156 mg IM ONE ONE Stop: 11/07/18 09:01 Sodium Chloride ([place] Nasal) 1 - 2 sprays NA PRN PRN PRN Reason: Nasal Dryness/Congestion Stop: 11/24/18 15:13 Post Discharge Appointments Primary Care Physician Name Of Family Doctor: Jolly Shafer Therapist Name of Therapist: Celine Velazco [facility] Psychiatry Engineer Technical Staff Name of Engineer Technical Staff: Phyllis CANTU from [facility] CPT Code CPT Code 31178
[2018-11-04] MEDS: PALIPERIDONE 3 MG TABCR PO SCH ×2 (08:36→21:00)
[2018-11-04] MEDS: NICOTINE 7 MG/24 HR TDSY TD SCH (08:36)
[2018-11-04] MEDS: HALOPERIDOL 5 MG TAB PO PRN ×2 (13:45→16:44)
--- NOTE | 2018-11-05 08:14 | Psychiatric Progress Note ---
Date of Service November 05, 2018 Impression / Recommendations Impression This 18 y/o female with schizoaffective disorder bipolar type who is psychiatrically hospitalized due to grave disability associated with her mental illness. Although there has been some improvement in her psychotic symptoms and ability to function, she remains delusional, perseverative, cognitively impaired, and dependent on others to meet her basic needs. She has been started on a long-acting injectable antipsychotic due to her history of poor compliance, and a discharge planning meeting is scheduled for 11/07. She is on a 303 involuntary commitment, and will file for a 304 outpatient commitment prior to discharge. Ongoing inpatient treatment is medically necessary due to the risk for harm to herself if discharged. (1) Schizoaffective disorder, bipolar type: 10/26/18 -The plan is to discontinue risperidone and begin paliperidone (Invega) 6 mg daily, and then switch to Invega Sustenna as tolerated. -Nursing checks for unreported post- bleeding. -Reality testing and reassurances. 10/27/18 -Continue paliperidone (Invega) 6 mg daily, and then switch to Invega Sustenna as tolerated. -Nursing checks for unreported post- bleeding. -Reality testing and reassurances. -Family meeting 10/28/18 -Increase paliperidone (Invega) 6 mg qam and 3mg qhs, and then switch to Invega Sustenna as tolerated. -Nursing checks for unreported post- bleeding. -Reality testing and reassurances. -Family meeting 10/29 -Still awaiting prior authorization from insurance company to start Invega Sustenna. Fasting labs for monitoring on an atypical antipsychotic reviewed from 08/14/2018: triglycerides elevated 274, and cholesterol 271. Fasting glucose elevated 114. Will require ongoing monitoring and follow-up with PCP, Jolly Ramos. -Arrange family meeting with outpatient case management rn and mother, explore options for supervised housing/alf, and consider need for a 304 outpatient commitment, given history of repeated noncompliance with outpatient treatment. -Continue haloperidol 5 mg as needed for psychosis. -Encourage attention to ADLs and group attendance and participation. 10/30 -Staff to follow up on Invega Sustenna prior authorization, as it was submitted 5 days ago. -Continue oral Invega in the interim, and haloperidol as needed. -Outpatient case management rn will visit with the patient tomorrow to start CRR referral process. She is also in support of an involuntary commitment at the time of discharge. -Recommend family meeting with parents, outpatient case management rn, and [facility] case management rn prior to discharge. 10/31 -PA for Invega Sustenna resubmitted yesterday, await response from insurance. -Meet with case management rn today for CRR referral. -We will need family meeting with mother, case management rn, [facility] case management rn, and hospital staff prior to discharge. 11/01 -Insurance approved Sustenna, and received the first loading dose of 234mg IM yesterday, and second loading dose 156mg is ordered for 11/07/18. Continue po Invega and start taper after second loading dose, as patient still actively psychotic and receiving Haldol prns. -CRR referral started, f/u with CM re: bed availabililty. Schedule meeting with outpatient case management rn, [facility] case management rn, and mother for discharge planning. Once we have a discharge date, will file for 304 outpatient commitment. 11/02 - Requesting PRN Haldol daily for anxiety and receiving Haldol 5mg in response. She reports that this "helps." However, she currently has cogwheel rigidity in her left arm when tested by me today, and it may be that akinesthesia may be contributing to her reported nervousness. - Trial of benadryl. - Meeting next week with [facility] case management rn, outpaient case management rn, and her mother. (Availability of the [facility] case management rn uncertain at this time.) - We will be exploring the option of allowing the patient to go home and wait for a CRR bed as the patient's condition improves. 11/03 -Continue haloperidol 5 mg as needed, oral paliperidone 9 mg daily, and will receive second Invega Sustenna dose on 11/07/2018. Can then start taper of oral paliperidone. 11/04 -patient reports diphenhydramine has been helpful for restlessness, so will use as needed. 11/05 -patient has been receiving haloperidol 5 mg daily and has decompensated with increased psychosis on days when she did not receive it. We will therefore schedule it daily at 1 PM, which is when she typically receives it. Continue to monitor for EPS, and use diphenhydramine as needed. Inventory Assets Strengths: Active family support (mother) Needs: Adherence with outpatient treatment. Resolution of psychosis. Risk Factors Assessment Male: No : Yes Do You Have Access To A Gun?: No Health Problems: No (10-days ) Mental Health Diagnoses: Yes Substance Use Disorders: Yes Previous Attempt: Yes Previous Attempt; Highly Lethal: Yes Previous Psychiatric Hospitalization: Yes Hopelessness: Yes Smoker: No Protective Factors Assessment : No Responsible for Young Children: No ([place] baby currently being cared for by FOB and his mother) Employed: No Stable Relationships: Yes Supportive Family: Yes Good Rapport with Provider: Yes Absence of Any Risk Factors Above: No (Nature of the patient's relationship with her outpatient provider is not known. However, she tells me that she likes her outpatient provider, but at the same time says that she will not follow his recommendations for treatment.) Interval History Identifying Information 18 y/o F with schizoaffective disorder bipolar type who is admitted on an involuntary commitment for psychosis and medication noncompliance. She is on a 303 as of 10/26/18. Chief Complaint "So can we call about the meeting today?". Review of Systems Sleep Information Total Hours of Sleep: 9.5 Sleep Comments: pt on q-15 minute checks Meal Information Percent Meal Consumed - Breakfast: 20 Percent Meal Consumed - Lunch: 85 Percent Meal Consumed - Dinner: 100 Nutrition Comment: Still complains she is having difficulty swallowing Subjective Subjective Patient was seen & assessed and interval progress reviewed with Treatment Team. Staff report she continues to receive haloperidol 5 mg most days, and when she went over 24 hours without receiving it, decompensated and was more psychotic. Is intrusive at times, asking staff the same questions about discharge repeatedly, and is still unable to tolerate groups. She had some bizarre behavior this morning, was making odd, high-pitched vocalizations and hopping around the unit. On my assessment, the patient continues to perseverate on discharge, and does not seem to recall the conversations we have had the last several days about her discharge plan. She goes back and forth between wanting to live with her mother and sister or her father. Again reminded her of the need to have a 304 outpatient commitment hearing and a meeting with her family and outpatient supports to finalize her disposition/discharge plans. Physical Exam Psychiatric Orientation: alert and cooperative Apperance: appropriately dressed, appropriately groomed and appeared stated age Eye Contact: good eye contact Motor Behavior: steady gait and station and no abnormal motor movements Childlike tone Affect: + anxious affect "Really good." Thought Process: + perseveration and + concrete thought process Thought Content: + preoccupation and + delusions (That she is someone else) Suicidal Thoughts: denies suicidal thoughts Homicidal Thoughts: denies homicidal thoughts Hallucinations: no auditory hallucinations and no visual hallucinations Cognition: attention grossly intact and language grossly intact; + recent memory not intact Estimated Intelligence: + below average estimated intelligence Insight: + impaired insight Judgement: + impaired judgement Vital Signs (Past 24 Hours) Last Vital Signs Temp 36.7 C 11/05/18 06:52 Pulse 91 H 11/05/18 06:52 Resp 16 11/05/18 06:52 BP 99/66 L 11/05/18 06:52 Results & Data Current Inpatient Medications Current Inpatient Medications: Current Inpatient Medications Acetaminophen (Tylenol) 650 mg PO Q4H PRN PRN Reason: Headache or Minor Fever Stop: 11/24/18 15:13 Last Admin: 10/29/18 17:54 Dose: 650 mg Al Hydrox/Mg Hydrox/Simethicone (Maalox) 30 ml PO Q4H PRN PRN Reason: GI Upset Stop: 11/24/18 15:13 Bismuth Subsalicylate (Kaopectate) 15 ml PO PRN PRN PRN Reason: Loose Stool Stop: 11/24/18 15:13 Diphenhydramine HCl (Benadryl) 50 mg PO Q6 PRN PRN Reason: restlessness Stop: 12/03/18 10:21 Last Admin: 11/03/18 17:32 Dose: 50 mg Haloperidol (Haldol) 5 mg PO BID PRN PRN Reason: Anxiety/Agitation Stop: 11/26/18 20:59 Last Admin: 11/04/18 16:44 Dose: 5 mg Hydroxyzine HCl (Vistaril) 50 mg PO HSZ PRN PRN Reason: Insomnia Stop: 11/24/18 15:13 Magnesium Hydroxide (Milk Of Magnesia) 30 ml PO DAILY PRN PRN Reason: Heartburn Stop: 11/24/18 15:13 Miscellaneous (Remove Nicoderm Patch) 1 ea N/A HS HENRIK Stop: 12/01/18 21:59 Last Admin: 11/04/18 21:13 Dose: 1 ea Nicotine (Nicoderm Cq) 7 mg TD QAM HENRIK Stop: 12/01/18 13:59 Last Admin: 11/04/18 08:36 Dose: 7 mg Paliperidone (Invega) 6 mg PO DAILY HENRIK Stop: 11/26/18 08:59 Last Admin: 11/04/18 08:36 Dose: 6 mg Paliperidone (Invega) 3 mg PO HS HENRIK Stop: 11/27/18 21:59 Last Admin: 11/04/18 21:00 Dose: 3 mg Paliperidone Palmitate (Invega Sustenna) 156 mg IM ONE ONE Stop: 11/07/18 09:01 Sodium Chloride ([place] Nasal) 1 - 2 sprays NA PRN PRN PRN Reason: Nasal Dryness/Congestion Stop: 11/24/18 15:13 Post Discharge Appointments Primary Care Physician Name Of Family Doctor: Jolly Shafer Therapist Name of Therapist: Celine Velazco [facility] Accounting Manager Cpa Name of Accounting Manager Cpa: Phyllis CANTU from [facility] CPT Code CPT Code 15781
[2018-11-05] MEDS: NICOTINE 7 MG/24 HR TDSY TD SCH (08:17)
[2018-11-05] MEDS: PALIPERIDONE 3 MG TABCR PO SCH ×2 (08:17→21:08)
[2018-11-05] MEDS: HALOPERIDOL 5 MG TAB PO SCH (12:05)
[2018-11-05 15:17] VITALS: O2SAT 100
[2018-11-05] MEDS: HALOPERIDOL 5 MG TAB PO PRN (17:41)
[2018-11-06] MEDS: PALIPERIDONE 3 MG TABCR PO SCH ×2 (07:57→21:13)
[2018-11-06] MEDS: NICOTINE 7 MG/24 HR TDSY TD SCH (07:58)
--- NOTE | 2018-11-06 11:03 | Psychiatric Progress Note ---
Date of Service November 06, 2018 Impression / Recommendations Impression The patient has made improvement since admission, although yesterday was a rough day with anxiety requiring frequent reassurances. Today she feels better , meaning more calm and is hoping for discharge after her 304 hearing. She is restless and benadryl is making little difference other than to make her tired. We will try a one time dose of Artane 5 mg and if helpful will order on a scheduled basis. (1) Schizoaffective disorder, bipolar type: 10/26/18 -The plan is to discontinue risperidone and begin paliperidone (Invega) 6 mg daily, and then switch to Invega Sustenna as tolerated. -Nursing checks for unreported post- bleeding. -Reality testing and reassurances. 10/27/18 -Continue paliperidone (Invega) 6 mg daily, and then switch to Invega Sustenna as tolerated. -Nursing checks for unreported post- bleeding. -Reality testing and reassurances. -Family meeting 10/28/18 -Increase paliperidone (Invega) 6 mg qam and 3mg qhs, and then switch to Invega Sustenna as tolerated. -Nursing checks for unreported post- bleeding. -Reality testing and reassurances. -Family meeting 10/29 -Still awaiting prior authorization from insurance company to start Invega Sustenna. Fasting labs for monitoring on an atypical antipsychotic reviewed from 08/14/2018: triglycerides elevated 274, and cholesterol 271. Fasting glucose elevated 114. Will require ongoing monitoring and follow-up with PCP, Jolly Ramos. -Arrange family meeting with outpatient case consultant and mother, explore options for supervised housing/mcc, and consider need for a 304 outpatient commitment, given history of repeated noncompliance with outpatient treatment. -Continue haloperidol 5 mg as needed for psychosis. -Encourage attention to ADLs and group attendance and participation. 10/30 -Staff to follow up on Invega Sustenna prior authorization, as it was submitted 5 days ago. -Continue oral Invega in the interim, and haloperidol as needed. -Outpatient case consultant will visit with the patient tomorrow to start CRR referral process. She is also in support of an involuntary commitment at the time of discharge. -Recommend family meeting with parents, outpatient case consultant, and [facility] case consultant prior to discharge. 10/31 -PA for Invega Sustenna resubmitted yesterday, await response from insurance. -Meet with case consultant today for CRR referral. -We will need family meeting with mother, case consultant, CYS case consultant, and hospital staff prior to discharge. 11/01 -Insurance approved Sustenna, and received the first loading dose of 234mg IM yesterday, and second loading dose 156mg is ordered for 11/07/18. Continue po Invega and start taper after second loading dose, as patient still actively psychotic and receiving Haldol prns. -CRR referral started, f/u with CM re: bed availabililty. Schedule meeting with outpatient case consultant, CYS case consultant, and mother for discharge planning. Once we have a discharge date, will file for 304 outpatient commitment. 11/02 - Requesting PRN Haldol daily for anxiety and receiving Haldol 5mg in response. She reports that this "helps." However, she currently has cogwheel rigidity in her left arm when tested by me today, and it may be that akinesthesia may be contributing to her reported nervousness. - Trial of benadryl. - Meeting next week with C[facility] case consultant, outpaient case consultant, and her mother. (Availability of the CYS case consultant uncertain at this time.) - We will be exploring the option of allowing the patient to go home and wait for a CRR bed as the patient's condition improves. 11/03 -Continue haloperidol 5 mg as needed, oral paliperidone 9 mg daily, and will receive second Invega Sustenna dose on 11/07/2018. Can then start taper of oral paliperidone. 11/04 -patient reports diphenhydramine has been helpful for restlessness, so will use as needed. 11/05 -patient has been receiving haloperidol 5 mg daily and has decompensated with increased psychosis on days when she did not receive it. We will therefore schedule it daily at 1 PM, which is when she typically receives it. Continue to monitor for EPS, and use diphenhydramine as needed. 11/06 - Sustenna injection scheduled for tomorrow - 304 scheduled for with hope to discharge afterward - Artane 5 mg X 1 for akathisia. If helpful, will schedule Inventory Assets Strengths: Active family support (mother) Needs: Adherence with outpatient treatment. Resolution of psychosis. Risk Factors Assessment Male: No : Yes Do You Have Access To A Gun?: No Health Problems: No (10-days ) Mental Health Diagnoses: Yes Substance Use Disorders: Yes Previous Attempt: Yes Previous Attempt; Highly Lethal: Yes Previous Psychiatric Hospitalization: Yes Hopelessness: Yes Smoker: No Protective Factors Assessment : No Responsible for Young Children: No ( baby currently being cared for by FOB and his mother) Employed: No Stable Relationships: Yes Supportive Family: Yes Good Rapport with Provider: Yes Absence of Any Risk Factors Above: No (Nature of the patient's relationship with her outpatient provider is not known. However, she tells me that she likes her outpatient provider, but at the same time says that she will not follow his recommendations for treatment.) Interval History Identifying Information 18 y/o F with schizoaffective disorder bipolar type who is admitted on an involuntary commitment for psychosis and medication noncompliance. She is on a 303 as of 10/26/18. Chief Complaint "I'm having a good day. ". Review of Systems Sleep Information Total Hours of Sleep: 9.75 Sleep Comments: sleep hour total between 12/17 anf 08/15 shifts Meal Information Percent Meal Consumed - Breakfast: 100 Percent Meal Consumed - Lunch: 75 Percent Meal Consumed - Dinner: 100 Nutrition Comment: Still complains she is having difficulty swallowing Subjective Subjective Patient was seen & assessed and interval progress reviewed with Treatment Team. The patient was resting in bed at the time of the interview. She awakens to voice and comes to the interview room. She reports that she is having a good day and feels calm and is anxious to go home soon. She feels that she is ready to go, and can take care of her ADL's including "showering, doing the dishes, getting dressed, taking my meds". The biggest problem she anticipates "is with my siblings". She denies that she is having any odd or distorted thoughts, denies aud/vis hallucinations. She is having "restlessness" that she experiences "all over my body" and occasionally a tremor. Nursing reports that she has been using benadryl for this, with minimal relief. She denies SI/HI Physical Exam Psychiatric Orientation: alert and cooperative Apperance: appropriately dressed and appropriately groomed Eye Contact: good eye contact (at times staring) Motor Behavior: steady gait and station (bradykinetic gait), no abnormal motor movements (mild tremor to outstretched hands) and + akathisia Speech: normal rate/rhythm/volume of speech Affect: + flat affect Mood: + anxious mood; no depressed mood Thought Process: goal directed thought process Thought Content: reality based without delusions Suicidal Thoughts: denies suicidal thoughts Homicidal Thoughts: denies homicidal thoughts Hallucinations: no auditory hallucinations and no visual hallucinations Cognition: attention grossly intact and language grossly intact Estimated Intelligence: consistent with education level Insight: + limited insight Judgement: + limited judgement Vital Signs (Past 24 Hours) Last Vital Signs Temp 36.5 C 11/06/18 06:30 Pulse 85 11/06/18 06:31 Resp 16 11/06/18 06:30 BP 101/66 11/06/18 06:31 Pulse Ox 100 11/05/18 15:15 Results & Data Current Inpatient Medications Current Inpatient Medications: Current Inpatient Medications Acetaminophen (Tylenol) 650 mg PO Q4H PRN PRN Reason: Headache or Minor Fever Stop: 11/24/18 15:13 Last Admin: 10/29/18 17:54 Dose: 650 mg Al Hydrox/Mg Hydrox/Simethicone (Maalox) 30 ml PO Q4H PRN PRN Reason: GI Upset Stop: 11/24/18 15:13 Bismuth Subsalicylate (Kaopectate) 15 ml PO PRN PRN PRN Reason: Loose Stool Stop: 11/24/18 15:13 Diphenhydramine HCl (Benadryl) 50 mg PO Q6 PRN PRN Reason: restlessness Stop: 12/03/18 10:21 Last Admin: 11/06/18 09:03 Dose: 50 mg Haloperidol (Haldol) 5 mg PO BID PRN PRN Reason: Anxiety/Agitation Stop: 11/26/18 20:59 Last Admin: 11/05/18 17:41 Dose: 5 mg Haloperidol (Haldol) 5 mg PO DAILY@1300 HENRIK Stop: 12/05/18 12:59 Last Admin: 11/05/18 12:05 Dose: 5 mg Hydroxyzine HCl (Vistaril) 50 mg PO HSZ PRN PRN Reason: Insomnia Stop: 11/24/18 15:13 Magnesium Hydroxide (Milk Of Magnesia) 30 ml PO DAILY PRN PRN Reason: Heartburn Stop: 11/24/18 15:13 Miscellaneous (Remove Nicoderm Patch) 1 ea N/A HS HENRIK Stop: 12/01/18 21:59 Last Admin: 11/05/18 21:08 Dose: Not Given Nicotine (Nicoderm Cq) 7 mg TD QAM HENRIK Stop: 12/01/18 13:59 Last Admin: 11/06/18 07:58 Dose: 7 mg Paliperidone (Invega) 6 mg PO DAILY HENRIK Stop: 11/26/18 08:59 Last Admin: 11/06/18 07:57 Dose: 6 mg Paliperidone (Invega) 3 mg PO HS HENRIK Stop: 11/27/18 21:59 Last Admin: 11/05/18 21:08 Dose: 3 mg Paliperidone Palmitate (Invega Sustenna) 156 mg IM ONE ONE Stop: 11/07/18 09:01 Sodium Chloride ([place] Nasal) 1 - 2 sprays NA PRN PRN PRN Reason: Nasal Dryness/Congestion Stop: 11/24/18 15:13 Trihexyphenidyl HCl (Artane) 5 mg PO ONE ONE Stop: 11/06/18 10:55 Post Discharge Appointments Primary Care Physician Name Of Family Doctor: Jolly Shafer Psychiatrist Name of Psychiatrist: Dr. Lea, [facility] Psychiatry Psychiatrist's Date of Appointment with Psychiatrist: 11/13/18 Time of Appointment with Psychiatrist: 12:45 Therapist Name of Therapist: Referral started to Mary Ann Verduzco Therapist's Parent Partner Name of Parent Partner: Phyllis CANTU from [facility] CPT Code CPT Code 90513
[2018-11-06] MEDS ORDERED: TRIHEXYPHENIDYL HCL 2 MG TAB PO ONE (11:30)
[2018-11-06] MEDS: HALOPERIDOL 5 MG TAB PO SCH (13:09)
[2018-11-07 06:29] VITALS: PULSE 98
[2018-11-07] MEDS: NICOTINE 7 MG/24 HR TDSY TD SCH (08:31)
[2018-11-07] MEDS: PALIPERIDONE 3 MG TABCR PO SCH ×2 (08:31→21:26)
[2018-11-07] MEDS ORDERED: PALIPERIDONE PALMITATE 156 MG/ML SYR IM ONE (09:00)
[2018-11-07] MEDS: TRIHEXYPHENIDYL HCL 2 MG TAB PO SCH ×2 (09:07→21:26)
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
[2018-11-07] MEDS: HALOPERIDOL 5 MG TAB PO SCH (12:51)
[2018-11-07] MEDS: ACETAMINOPHEN 325 MG TAB PO PRN (15:55)
[2018-11-07] MEDS: HALOPERIDOL 5 MG TAB PO PRN (17:36)
[2018-11-08 06:23] VITALS: TEMP 98.1
[2018-11-08] MEDS: TRIHEXYPHENIDYL HCL 2 MG TAB PO SCH (08:33)
[2018-11-08] MEDS: PALIPERIDONE 3 MG TABCR PO SCH (08:34)
[2018-11-08] MEDS: NICOTINE 7 MG/24 HR TDSY TD SCH (08:34)
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
[2018-11-08] MEDS: HALOPERIDOL 5 MG TAB PO PRN (10:55)
[2018-11-08 11:07] VITALS: BP 96/59
[2018-11-08] MEDS: HALOPERIDOL 5 MG TAB PO SCH (13:45)
[2018-12-05] MEDS ORDERED: PALIPERIDONE PALMITATE 234 MG/1.5 ML SYR IM SCH (09:00)
== END 2018-11-08 16:18 | disposition home or self-care (01) | DRG 885 ==
LOC: 3S 13:46 → SUATTDRO 13:46

== ENCOUNTER 2021-03-26 15:48 | Observation (INO) ==
[2021-03-26] MEDS ORDERED: SODIUM CHLORIDE 0.9% 1000ML 1,000 ML IV ONE ×2 (16:42→22:16)
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
[2021-03-26 17:13] LABS: Hematocrit (blood only) 42.6 % (37-47); Hemoglobin 14.3 g/dL (12.0-16.0); Mean Corpuscular Hemoglobin 29.7 pg (25-34); Mean Corpuscular Hgb Conc 33.6 g/dL (32-36); Mean Corpuscular Volume 88.4 fL (80-100); Mean Platelet Volume 9.6 fL (7.4-10.4); Platelet Count 270 K/uL (130-400); RDW Coefficient of Variation 14.2 % (11.5-14.5); RDW Standard Deviation 46.1 fL (36.4-46.3); Red Blood Count 4.82 M/uL (4.2-5.4); White Blood Count 8.64 K/uL (4.8-10.8)
[2021-03-26 17:25] LABS: Amphetamines+Metham, Urine Neg (Neg); Barbiturates, Urine Neg (Neg); Benzodiazepine, Urine Neg (Neg); Cocaine, Urine Neg (Neg); MDMA (Ecstacy), Urine Neg (Neg); Methadone, Urine Neg (Neg); Opiate, Urine Neg (Neg); Phencyclidine, Urine Neg (Neg)
[2021-03-26 17:37] LABS: Pregnancy Test, Serum Negative (Negative)
[2021-03-26 17:40] LABS: ALC (manual) 2.26 K/uL (1.2-3.4); ANC (manual) 5.71 K/uL (1.4-6.5); Albumin Level 3.7 gm/dl (3.4-5.0); BUN Creatinine Ratio 12.1 (10-20); Basophils # (manual) 0.08 K/uL (0-0.2); Basophils % (manual) 0.9 %; Calcium 9.1 mg/dl (8.5-10.1); Creatinine Clr Calc Pharmacy 98.2 ml/min; Eosinophils # (manual) 0.37 K/uL (0-0.5); Eosinophils % (manual) 4.3 %; Est GFR (African American) 86.7 ml/min; Est GFR (Non-African American) 74.8 ml/min; Lymphocytes # (manual) 1.28 K/uL (1.2-3.4); Lymphocytes % (manual) 14.8 %; Magnesium 2.2 mg/dl (1.8-2.4); Monocytes # (manual) 0.22 K/uL (0.11-0.59); Monocytes % (manual) 2.6 %; Neutrophils # (manual) 5.71 K/uL (1.4-6.5); Neutrophils % (manual) 66.1 %; Potassium 3.8 mmol/L (3.5-5.1); RBC Morphology Unremarkable; Reactive Lymphocytes # (manual) 0.98 K/uL; Reactive Lymphocytes % (manual) 11.3 %
[2021-03-26 17:43] LABS: Albumin Globulin Ratio 0.8 (0.9-2); Bilirubin,Total 0.4 mg/dl (0.2-1); Globulin 4.4 gm/dl (2.5-4.0); Total Protein 8.1 gm/dl (6.4-8.2)
[2021-03-26 17:56] LABS: Acetaminophen < 2 ug/ml (10-30); Salicylate 2.5 mg/dl (2.8-20)
[2021-03-26] MEDS ORDERED: LORazepam 1 MG/2 ML VIAL IV STA ×2 (18:08→21:36)
[2021-03-26] MEDS ORDERED: NICOTINE 14 MG/24 HR PATCH TD STA (20:41)
[2021-03-26] MEDS ORDERED: ACETAMINOPHEN 325 MG TAB PO STA (22:17)
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
[2021-03-27 00:43] LABS: Appearance Urine Clear (Clear); Bacteria Urine Automated Negative (Negative); Bilirubin Urine Negative (Negative); Blood Urine 2+ (Negative); Color Urine Yellow; Epithelial Cell Urine Auto >30 /lpf (0-5); Glucose Urine UA Negative (Negative); Ketones Urine Negative (Negative); Leukocyte Esterase Urine Negative (Negative); Nitrite Urine Negative (Negative); Protein Urine Negative (Negative); RBC Urine Automated 0-4 /hpf (0-4); Specific Gravity Urine 1.013 (1.000-1.030); Urobilinogen Urine Negative (Negative); pH Urine 6.5 (4.5-7.5)
[2021-03-27] MEDS: LACTATED RINGER'S 1,000 ML IV SCH ×2 (05:15→17:23)
[2021-03-27] MEDS ORDERED: ARIPiprazole 5 MG TAB PO SCH (09:00)
[2021-03-27] MEDS ORDERED: NICOTINE 21 MG/24 HR TDSY TD SCH (09:00)
[2021-03-27] MEDS ORDERED: FLUoxetine HCL 20 MG CAP PO SCH (09:00)
[2021-03-27] MEDS ORDERED: LORazepam 0.5 MG TAB PO STA (09:34)
--- NOTE | 2021-03-27 10:48 | Hospitalist Progress Note ---
Date of Service March 27, 2021 Assessment & Plan (1) Diphenhydramine overdose: Patient is a 21 year old female with schizoaffective disorder, anxiety, and history of intentional overdose with suicidal intent p/w intentional OD of diphenhydramine. Intentional overdose Patient reports intentional overdose of diphenhydramine, patient reports taking this in order to try to go to sleep but voiced understanding that this could have harmed or killed her Patient with history of intentional overdose, anxiety, schizoaffective disorder, at least two inpatient psychiatric hospitalizations 302 signed, plan for discharge and transfer to inpatient behavioral health it Psychiatry has been notified that patient is medically cleared Patient denies suicidality at this time Continue 1:1 sit Diphenhydramine toxicity Occurred 03/26 around 14:00; total dose diphenhydramine taken unclear Tachycardic on admission, patient afebrile and without other signs of anticholinergic toxicity EKG on admission with sinus tachycardia, QTc not prolonged Patient is mildly tachycardic when crying or yelling but HR is normal when patient is calm Patient is medically cleared Dysuria Patient noting recent partial treatment for UTI (only took 1 day of bactrim) Noting symptoms of increased frequency and possible dysuria UA showing primarily blood, though patient currently menstruating (started 3-4 days prior) No treatment indicated at this time; continue to monitor for worsening of symptoms Schizoaffective disorder, anxiety Continue home dose abilify, prozac Patient currently with brief periods of mild agitation due to patient being frustrated with this admission, desire to go home, and feeling bored Ativan 1mg PO q8h prn order placed for anxiety unresponsive to verbal deescalation Haldol 5mg IM q12h prn order placed for combativeness, attempts to remove medical equipment, or agitation unresponsive to verbal deescalation Nicotine dependence Continue nicotine patch 21mg as needed (patient reports 14mg was inadequate) Dispo: med/surg tele FEN: regular diet, safe tray, LR @ 80mL DVT: ambulation PRN Code: full Admission and Anticipated Discharge Date Admission Date: March 27, 2021 Supervising Physician Co-Signing Physician Notes Patient seen and examined independently PGY1 Dr. Hunt. Agree with history, exam findings, assessment and plan of care as outlined. Ainsley is a 21-year-old female with history of schizoaffective disorder, depression and anxiety admitted following a Benadryl overdose. She reports that she took anywhere between 3 to 15 tablets of [id number] Benadryl because she was upset that she was not able to get a hold of her boyfriend by phone. She is certain he is cheating on her. She is repeatedly asking for her mobile phone to speak with her family and try to continue to get in contact with her boyfriend. She would prefer not to be transferred to the behavioral health unit. She would prefer to go to the [facility] because she is allowed to smoke there. Vital signs and nursing notes reviewed. She is well-appearing. At times, she is tachycardic but she endorses that this happens when she is more anxious and agitated. No murmur. No edema. Lungs are clear to auscultation throughout all lung greco. No wheezes, rhonchi's or rales. Denies suicidal ideation. She has very poor insight into her mental health conditions. She is bargaining in order to avoid a 302. Labs and imaging reviewed. 1. Intentional overdose with Benadryl. At this time, she has no symptoms of anticholinergic toxicity. Psychiatry has been contacted. They are arranging for her to be transferred to the [facility]. Continue with one-to-one sitter. We will continue with cardiac monitoring until she is transferred. 2. Benadryl overdose. See above. 3. Dysuria. Was partially treated for simple cystitis with 1 day of Bactrim. Will finish out a 3-day course of Bactrim. 4. Schizoaffective disorder, depression, anxiety. Continue home Abilify and Prozac. As needed Ativan for anxiety. Haldol IM as needed for agitation and combativeness. 5. Nicotine dependence. Increase nicotine patch from 14 mg to 21 mg. Subjective Patient seen and evaluated at bedside this morning. Patient is anxious and sad. Does not want to be in the hospital and very insistent that she is not suicidal, does not need medical care, and will not try to kill herself if she goes home. Patient repeatedly asking for her cell phone. At times patient picks at peripheral IV line securing adhesive but stops upon request. Patient denies racing thoughts, AVH, thoughts of harming self or others. Patient denies CP, SOB, abdominal pain, nausea, vomiting, lightheadedness, dizziness, back pain, weakness, confusion, diarrhea, or other symptoms. Review of Systems Review of Systems: See HPI Physical Exam Physical Exam: Constitutional: anxious-appearing, no acute distress, calm and times and at other times crying HEENT: NCAT, no conjunctival injection CV: regular rhythm, no murmur appreciated, extremities well-perfused Resp: CTABL, no wheezes/rales/rhonchi appreciated, no increased work of breathing Skin: warm, dry, no rash appreciated Neuro: AOx4, no focal neurological deficits appreciated Appearance: wearing hospital gown Behavior: varying from calm and cooperative to crying and yelling, picking at IV but redirectable, eye contact fair Mood: "horrible" Affect: anxious, congruent with mood Speech: no pressure or poverty of speech, yelling at times Thought process: linear, coherent Thought content: appropriate to topic of discussion, denies SI/HI Cognition: alert, focused, short- and long-term memory grossly intact, abstraction intact Insight: poor Judgment: poor Results & Data Results & Data ([facility]) Vital Signs (Past 12 Hours) Vital Signs Temp Pulse Pulse Resp BP BP Pulse Ox 03/27/21 07:55 95 H 03/27/21 07:07 37.1 C 109 H 18 110/68 98 03/27/21 03:31 37.0 C 18 105/69 96 03/27/21 03:16 98 H 03/27/21 02:30 90 24 120/60 03/27/21 02:00 96 H 22 142/69 H 03/27/21 01:30 87 20 96/58 L 03/27/21 01:00 89 21 111/53 L 03/27/21 00:31 104 H 28 H 141/73 H 98 03/27/21 00:00 108 H 19 125/87 03/26/21 23:51 37.1 C 03/26/21 23:00 115 H 15 136/83 Resident Activity Tracking Resident Involvement: Resident Care Provided Care Provided: Adult Hospital Medicine (1) Diphenhydramine overdose Encounter type: initial encounter Injury intent: intentional self-harm Qualified Code(s): T45.0X2A - Poisoning by antiallergic and antiemetic drugs, intentional self-harm, initial encounter
--- NOTE | 2021-03-27 11:05 | Electrocardiogram Report ---
Test Reason : Blood Pressure : / mmHG Vent. Rate : 104 BPM Atrial Rate : 104 BPM P-R Int : 124 ms QRS Dur : 082 ms QT Int : 336 ms P-R-T Axes : 058 059 015 degrees QTc Int : 441 ms Sinus tachycardia Possible Left atrial enlargement Borderline ECG When compared with ECG of 26-MAR-2021 16:04, (unconfirmed) No significant change was found Confirmed by Luis Krueger ([id number]) on 03/27/2021 11:04:42 AM Referred By: REFERRED SELF Confirmed By:Gallo Krueger
--- NOTE | 2021-03-27 11:07 | Electrocardiogram Report ---
Test Reason : Blood Pressure : / mmHG Vent. Rate : 121 BPM Atrial Rate : 121 BPM P-R Int : 116 ms QRS Dur : 078 ms QT Int : 324 ms P-R-T Axes : 061 053 008 degrees QTc Int : 460 ms Sinus tachycardia Possible Left atrial enlargement Borderline ECG When compared with ECG of 13-AUG-2014 13:33, T wave inversion now evident in Inferior leads T wave amplitude has decreased in Lateral leads Confirmed by Luis Krueger ([id number]) on 03/27/2021 11:07:17 AM Referred By: REFERRED SELF Confirmed By:Gallo Krueger
[2021-03-27] MEDS ORDERED: LORazepam 1 MG TAB PO PRN (12:41)
[2021-03-27] MEDS ORDERED: HALOPERIDOL LACTATE 5 MG/ML 1 ML VIAL IM PRN (12:41)
[2021-03-27] MEDS: NICOTINE POLACRILEX 2 MG GUM MT PRN ×2 (15:30→16:43)
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
--- NOTE | 2021-03-27 18:38 | Discharge Summary ---
Date of Service March 27, 2021 Admission HPI Per Admitting Provider Patient is a 21 year old female with PMHx Schizoaffective disorder, Anxiety, presenting with chief complaint of diphenhydramine overdose. Patient was limited in regards to her history as she wanted to go home, but understood the need for monitoring. She notes that around 2PM today she was feeling overwhelmed due to "boys not knowing what they want and just going from girl to girl" and took "a few Benadryl" so that she could go to sleep and "not deal with everything going on." She notes that she did not have intent to harm herself nor was she having suicidal ideation or plan at that time. Upon review of prior documentation there are notes that the patient may have taken 15-30 pill which was disclosed to her manager of case management, however, told the ED provider she may have only taken 3. She states that she did not take any of her other medications that day. Patient also notes that she was seen recently seen for a UTI and prescribed Bactrim, however, she only took one dose. She states that she is still having some increased urinary frequency and slight burning with urination. She also notes lower abdominal discomfort and that occasionally she feels her abdomen "bubble." She notes daily bowel movements which are regular for her. She notes currently that she is somewhat hungry, but otherwise denies chest pain, SOB, fever, chills, visual changes, headache. Admission Exam Per Admitting Provider Constitutional: WD/WN, vitals as above Eyes: PERRL, conjunctivae normal, anicteric sclerae ENMT: external ear and nose normal, oropharynx normal Neck: trachea midline, no thyromegaly Respiratory: normal respiratory effort, lungs clear to auscultation Cardiovascular: Rate/Rhythm: regular rhythm and + tachycardic Heart Sounds: normal S1 and normal S2; no murmur Extremities: no calf tenderness Gastrointestinal (Abdomen): Inspection/Auscultation: abdomen normal to inspection and normal bowel sounds; abdomen not distended Percussion/Palpation: + abdomen tender (very slight TTP lower quadrants and suprapubic ) and abdomen soft Musculoskeletal: no cyanosis or clubbing, extremities motor strength 5/5 Skin: no rashes, warm and dry Neurologic: PERRL, EOMI, accommodation nl, no face palsy, no dysarthria awake Psychiatric: Orientation: alert and oriented x 3 Principal Diagnosis Intentional overdose Discharge Data Allergies Allergy/AdvReac Type Severity Reaction Status Date / Time No Known Allergies Allergy Verified 03/16/21 02:35 Consultations 03/26/21 22:23 ED Decision to Admit Stat 03/27/21 03:30 Consult Psychiatry Routine Hospital Course (1) Diphenhydramine overdose: Patient is a 21 year old female with schizoaffective disorder, anxiety, and history of intentional overdose with suicidal intent p/w intentional OD of diphenhydramine. Intentional overdose Patient reports intentional overdose of diphenhydramine, patient reports taking this in order to try to go to sleep but voiced understanding that this could have harmed or killed her Patient with history of intentional overdose, anxiety, schizoaffective disorder, at least two inpatient psychiatric hospitalizations [id number] signed, plan for discharge and transfer to inpatient behavioral health unit Psychiatry has been notified that patient is medically cleared Patient denies suicidality at this time Continue 1:1 sit Diphenhydramine toxicity Occurred 03/26 around 14:00; total dose diphenhydramine taken unclear Tachycardic on admission, patient afebrile and without other signs of anticholinergic toxicity EKG on admission with sinus tachycardia, QTc not prolonged Patient is mildly tachycardic when crying or yelling but HR is normal when patient is calm Patient is medically cleared Dysuria Patient noting recent partial treatment for UTI (only took 1 day of bactrim) Noting symptoms of increased frequency and possible dysuria UA showing primarily blood, though patient currently menstruating (started 3-4 days prior) No treatment indicated at this time; continue to monitor for worsening of symptoms Schizoaffective disorder, anxiety Continue home dose abilify, prozac Patient currently with brief periods of mild agitation due to patient being frustrated with this admission, desire to go home, and feeling bored Ativan 1mg PO q8h prn order placed for anxiety unresponsive to verbal deescalation Haldol 5mg IM q12h prn order placed for combativeness, attempts to remove medical equipment, or agitation unresponsive to verbal deescalation Nicotine dependence Continue nicotine patch 21mg as needed (patient reports 14mg was inadequate) Total Time Total Time Spent Total Time Spent (In Minutes): see attending documentation Discharge Plan Discharge Items Patient Disposition: Transfer Behavioral Health Fac Reason For Visit: DIPHENHYDRAMINE OVERDOSE Discharge Diagnosis: Intentional diphenhydramine overdose Activity: Resume your previous activity Non-emergency contact: Primary Care Provider and Psychiatrist Call non-emergency contact if: your symptoms worsen Follow-up/Referrals: Jolly Krause PA-C [Primary Care Provider] - Diet: Regular Addtl Attending Provider Instructions: Patient is a 21 year old female with schizoaffective disorder, anxiety, and history of intentional overdose with suicidal intent p/w intentional OD of diphenhydramine. Intentional overdose Patient reports intentional overdose of diphenhydramine, patient reports taking this in order to try to go to sleep but voiced understanding that this could have harmed or killed her Patient with history of intentional overdose, anxiety, schizoaffective disorder, at least two inpatient psychiatric hospitalizations [id number] signed, plan for discharge and transfer to inpatient behavioral health unit Psychiatry has been notified that patient is medically cleared for discharge to [facility] Continue 1:1 sit Diphenhydramine overdose Occurred 03/26 around 14:00; total dose diphenhydramine taken unclear (between 3 and 15 pills) Tachycardic on admission, patient afebrile and without other signs of anticholinergic toxicity EKG on admission with sinus tachycardia, QTc not prolonged Patient is mildly tachycardic when crying or yelling but HR is normal when patient is calm Plan for transfer to [facility] on 03/27 Dysuria Patient noting recent partial treatment for UTI (only took 1 day of bactrim) Noting symptoms of increased frequency and possible dysuria UA showing primarily blood, though patient currently menstruating (started 3-4 days prior) No treatment indicated at this time; continue to monitor for worsening of symp toms Schizoaffective disorder, anxiety Continue home dose abilify, prozac Patient currently with brief periods of mild agitation due to patient being frustrated with this admission, desire to go home, and feeling bored Ativan 1mg PO q8h prn order placed for anxiety unresponsive to verbal deescalation Haldol 5mg IM q12h prn order placed for combativeness, attempts to remove medical equipment, or agitation unresponsive to verbal deescalation Nicotine dependence Continue nicotine patch 21mg as needed (patient reports 14mg was inadequate) Pending Studies at Discharge: No Stand-Alone Forms: My [facility] Medications and DC Order Prescriptions: Continued fluoxetine 40 mg capsule 40 mg PO DAILY RF: 0 diphenhydramine HCl [Banophen] 25 mg capsule 25 mg PO BID RF: 0 aripiprazole 5 mg tablet 5 mg PO DAILY RF: 0 Discharge Orders: Discharge Order (Routine); Ordered 03/27/21 Ordered By: Tim Hunt Admission Data Admit Date/Time: 03/27/21 00:43 Attending Provider: Ramy Colon Admit Provider: Benjamin Prabhakar Primary Care Provider: Jolly Krause Other Providers: Benjamin Prabhakar ; Valerie Morales ; Dr David ; Amelia Buitrago ; Caio Vizcaino Other Interventions: Discharge Summary Assessment (RN) Last Done: 03/27/21 15:03 Supervising Physician Co-Signing Physician Notes Patient seen and examined independently PGY1 Dr. Hunt. Agree with history, exam findings, assessment and plan of care as outlined. Ainsley is a 21-year-old female with history of schizoaffective disorder, depression and anxiety admitted following a Benadryl overdose. She reports that she took anywhere between 3 to 15 tablets of [id number] Benadryl because she was upset that she was not able to get a hold of her boyfriend by phone. She is certain he is cheating on her. She is repeatedly asking for her mobile phone to speak with her family and try to continue to get in contact with her boyfriend. She would prefer not to be transferred to the behavioral health unit. She would prefer to go to the [facility] because she is allowed to smoke there. Vital signs and nursing notes reviewed. She is well-appearing. At times, she is tachycardic but she endorses that this happens when she is more anxious and agitated. No murmur. No edema. Lungs are clear to auscultation throughout all lung greco. No wheezes, rhonchi's or rales. Denies suicidal ideation. She has very poor insight into her mental health conditions. Labs and imaging reviewed. 1. Intentional overdose with Benadryl. At this time, she has no symptoms of anticholinergic toxicity. Psychiatry has been contacted. They are arranging for her to be transferred to the [facility]. Continue with one-to-one sitter. We will continue with cardiac monitoring until she is transferred. 2. Benadryl overdose. See above. 3. Dysuria. Was partially treated for simple cystitis with 1 day of Bactrim. Will finish out a 3-day course of Bactrim. 4. Schizoaffective disorder, depression, anxiety. Continue home Abilify and Prozac. As needed Ativan for anxiety. Haldol IM as needed for agitation and combativeness. 5. Nicotine dependence. Increase nicotine patch from 14 mg to 21 mg. Medically stable for transfer to psychiatric inpatient stay. Dispo: Discharge to the [facility] for psychiatric inpatient evaluation and stay. 302 has been signed. I personally spent 35 minutes discharge planning for this patient. Resident Activity Tracking Resident Involvement: Resident Care Provided Care Provided: Adult Hospital Medicine
--- NOTE | 2021-03-28 00:35 | Billing Data ---
Date of Service March 28, 2021 Coding Level of Care Code 56859 OBS Care - Level 3
== END 2021-03-27 18:20 ==
LOC: 2N 15:48 → ED 15:48 → SUATTDRO 03-27 00:43 → 2N 03-27 03:00

== ENCOUNTER 2022-06-01 22:08 | Inpatient (IN) ==
[2022-06-01 23:23] LABS: Basophils # (auto) 0.09 K/uL (0-0.2); Basophils % (auto) 0.7 %; Eosinophils # (auto) 0.08 K/uL (0-0.50); Eosinophils % (auto) 0.6 %; Hematocrit (blood only) 38.3 % (34.1-44.9); Hemoglobin 12.3 g/dl (12.0-16.0); Immature Granulocytes % (auto) 0.8 %; Lymphocytes # (auto) 2.79 K/uL (1.2-3.4); Lymphocytes % (auto) 21.4 %; Mean Corpuscular Hemoglobin 25.9 pg (25.0-34.0); Mean Corpuscular Hgb Conc 32.1 g/dL (32.0-36.0); Mean Corpuscular Volume 80.8 fL (80.0-100.0); Mean Platelet Volume 9.3 fL (9.4-12.3); Monocytes % (auto) 6.1 %; Neutrophils # (auto) 9.16 K/uL (1.4-6.5); Neutrophils % (auto) 70.4 %; Platelet Count 375 K/uL (130-400); RDW Coefficient of Variation 14.9 % (11.5-14.5); RDW Standard Deviation 43.5 fL (36.4-46.3); Red Blood Count 4.74 M/uL (3.93-5.22); White Blood Count 13.02 K/ul (4.8-10.8)
[2022-06-01 23:31] LABS: Albumin Globulin Ratio 1.2 (0.9-2); Albumin Level 4.1 gm/dl (3.4-5.0); BUN Creatinine Ratio 7.8 (10-20); Bilirubin,Total 0.3 mg/dl (0.2-1.0); Calcium 9.6 mg/dl (8.5-10.1); Est GFR (African American) 76.3 ml/min; Est GFR (Non-African American) 65.8 ml/min; Globulin 3.4 gm/dl (2.5-4.0); Potassium 3.9 mmol/L (3.5-5.1); Total Protein 7.5 gm/dl (6.0-8.3)
[2022-06-01 23:41] LABS: Acetaminophen < 3 ug/ml (10-30); Salicylate < 3.0 mg/dl (3.0-30)
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
[2022-06-02 03:55] LABS: Appearance Urine Cloudy (Clear); Bacteria Urine Automated 1+ (Negative); Bilirubin Urine Negative (Negative); Blood Urine 3+ (Negative); Color Urine Orange; Epithelial Cell Urine Auto >30 /lpf (0-5); Glucose Urine UA Negative (Negative); Ketones Urine Trace (Negative); Leukocyte Esterase Urine Trace (Negative); Nitrite Urine Negative (Negative); Protein Urine 1+ (Negative); Specific Gravity Urine 1.029 (1.000-1.030); Urobilinogen Urine Negative (Negative); WBC Urine Automated >30 /hpf (0-5)
[2022-06-02] MEDS ORDERED: ACETAMINOPHEN 325 MG TAB PO STA (03:58)
[2022-06-02 04:20] LABS: Amphetamines+Metham, Urine Neg (Neg); Barbiturates, Urine Neg (Neg); Benzodiazepine, Urine Neg (Neg); Cocaine, Urine Neg (Neg); MDMA (Ecstacy), Urine Pos (Neg); Methadone, Urine Neg (Neg); Opiate, Urine Neg (Neg); Phencyclidine, Urine Neg (Neg)
[2022-06-02 04:41] LABS: Cast Urine Automated 0 /lpf (0-5); Mucus Urine Present (None Prsent)
[2022-06-02] MEDS ORDERED: BISMUTH SUBSALICYLATE LIQD 236 ML PO PRN ×3 (06:07→06:45)
[2022-06-02] MEDS ORDERED: MAGNESIUM HYDROXIDE SUSP 30 ML UDC PO PRN ×3 (06:07→06:45)
[2022-06-02] MEDS ORDERED: hydrOXYzine HCl 25 MG TAB PO PRN ×6 (06:07→06:45)
[2022-06-02] MEDS ORDERED: ALUMINUM/MAGNESIUM SUSP 30 ML UDC PO PRN ×3 (06:07→06:45)
[2022-06-02] MEDS ORDERED: SODIUM CHLORIDE 0.65% NA SOLN 45 ML (OCEAN) PRN ×3 (06:07→06:45)
[2022-06-02] MEDS ORDERED: ACETAMINOPHEN 325 MG TAB PO PRN ×3 (06:07→06:45)
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
[2022-06-02] MEDS: NICOTINE 14 MG/24 HR PATCH TD SCH (09:53)
[2022-06-02] MEDS ORDERED: OLANZapine 5 MG TABLET PO PRN (09:59)
[2022-06-02] MEDS: traZODone HCL 50 MG TAB PO SCH (20:20)
[2022-06-02] MEDS: lamoTRIgine 25 MG TAB PO SCH (20:20)
[2022-06-03 08:39] LABS: Chol HDL Ratio 5.9 (0-5)
[2022-06-03] MEDS: VENLAFAXINE HCL XR 150 MG CAPXR PO SCH (09:33)
[2022-06-03] MEDS: VENLAFAXINE HCL XR 75 MG CAPXR PO SCH (09:33)
[2022-06-03] MEDS: NICOTINE 14 MG/24 HR PATCH TD SCH (09:33)
[2022-06-03] MEDS: lamoTRIgine 25 MG TAB PO SCH ×2 (09:33→20:58)
[2022-06-03] MEDS: ARIPiprazole 10 MG TAB PO SCH (09:33)
--- NOTE | 2022-06-03 12:32 | Psychiatric Progress Note ---
Date of Service June 03, 2022 Impression / Recommendations Impression The patient is a 22 year old with a history of schizoaffective disorder, post psychosis and substance use who was admitted for psychosis with disorganized behaviors and SI with attempt to grab a gun. Diagnostically consistent with acute exacerbation of psychosis likely due to schizoaffective disorder though of note she had a recent miscarriage in mid-April requiring medical D&C and hx of post- psychosis. Also potential component from substance-induced or substance-withdrawal psychosis as she has a history of synthetic/high THC cannabis oil use and UDS was positive for cannabis and MDMA. The patient is deemed unstable and requires psychiatric hospitalization for diagnostic clarification, safety and stabilization, medication management and development of further coping skills. MNPR due to acute psychosis, bizarre interactions with others, HI prior to admission 06/03/22: Very concrete but some improvement today, more reality-based and organized. Suspect underlying intellectual disability as well given ways she is taken advantage of by peers and difficulty navigating more complex topics/discussions. Tolerating her medications without side effects. Left message with her outpatient psychiatrist, reportedly sees her via telemedicine, to determine possibility for [facility] Abilify options through their office. Seems presentation likely in part due to substance-induced psychosis. Counseled on ways to set boundaries with others, motivational interviewing regarding substance use. Reviewed fasting labs-elevated glucose, TGs, total cholesterol, and low HDL. Will do add-on HbA1c. May consider addition of metformin to reduce weight gain from abilify if she agrees. Will need to see PCP after discharge to discuss hyperlipidemia. Could consider alternative antipsychotic but given period of stabilization on abilify and HAWKINS option and she likes abilify and is willing to take this, I'm hesitant to shift to haldol or invega option. (1) Schizoaffective disorder, bipolar type: (2) Cannabis use disorder: (3) Hyperlipidemia: Plan 06/03/22: Reviewed fasting labs. Add-on HbA1c. Continue with current medications and tx plan. Consider metformin augmentation to reduce antipsychotic-induced weight gain/metabolic effects. 06/02/22: The patient was admitted to [facility] ([facility] on q15 min checks (behavioral with suicide precautions) for safety. The patient will participate in group, recreational, and milieu therapies and will be offered additional individual and family sessions as clinically appropriate. -Continue with prior to admission medications -Fasting labs in the morning -Add olanzapine 5mg BID prn for agitation/anxiety Inventory Assets Strengths: housing, outpatient supports, support from family Needs: safety and stabilization, medication adjustment, additional coping skills, increased outpatient services Suicide Risk Level Suicide Risk Level Comments: High-Moderate due to severe depression with SI with plan prior to admission but feels safe in the hospital, able to safety contract and agrees to let nursing/staff know should they develop plan, intent or feel unable to remain safe. Risk Factors Assessment : Yes Do You Have Access To A Gun?: No Mental Health Diagnoses: Yes Substance Use Disorders: Yes Previous Attempt: Yes Previous Psychiatric Hospitalization: Yes Hopelessness: No Protective Factors Assessment Employed: No (Disabled) Supportive Family: Yes Good Rapport with Provider: Yes Interval History Identifying Information MIGUEL ANGEL QUINTERO is a 22-year-old F who currently lives in [place] alone, has a history of schizoaffective disorder, PTSD and polysubstance use disorder, and was admitted on 06/02/22 06:20 on a 302 involuntary commitment for acute psychosis and SI with attempts to grab a police officers gun to shoot herself. Chief Complaint "I do feel better". Review of Systems Sleep Information Total Hours of Sleep: 8 Meal Information Percent Meal Consumed - Breakfast: 75 Percent Meal Consumed - Lunch: 0 Nutrition Comment: pt. asleep; meal dated, labeled and refrigerated Subjective Subjective Patient was seen & assessed and interval progress reviewed with treatment team nursing and social work. She is eager to discharge today, re-explained that she remains on 302 commitment and needs to remain in the hospital. She was understanding of this. She reports improvement in mood today. Reviewed UDS results again and she states that "my apartment building all does drugs so someone might have slipped me something" and explains that "we all smoke blunts" and confirms she had been smoking prior to calling police and being brought to the ED. Denies SI and reports that the voices "are better, I'm not hearing all the whispering anymore". Reports that she gave out her apartment door code to a homeless friend, Shukri, and he has been coming and going from her apartment but she can't recall why she became concerned he might hurt her or why she was hearing gunshots but does offer "I wasn't feeling safe when I was high". Reviewed ways to protect her self-interest including not giving out her apartment code and encouraged her to contact her landlord to have her door code changed and to then never share this code with others she doesn't completely trust and know well such as family members. Reviewed risks of substance use, she notes it's hard not to use substances since everyone around her does. She also discusses how the people in her building convince her to spend her money on drugs for them and then ask her repeatedly when she'll get paid again when she runs out of money. Significant motivational interviewing regarding this and counseled on self-advocacy and practiced ways to say no to peer pressure. She denies any recent domestic violence or abuse from anyone. Says this man Ali is her friend and has never harmed her but she wishes he wouldn't come to her apartment because "we fight a lot". Physical Exam Psychiatric Orientation: alert and oriented x 3 Apperance: appropriately dressed and appropriately groomed Eye Contact: good eye contact Motor Behavior: no abnormal motor movements Speech: normal rate/rhythm/volume of speech Affect: euthymic affect Mood: + anxious mood; no depressed mood Thought Process: + concrete thought process Thought Content: reality based without delusions Suicidal Thoughts: denies suicidal thoughts Homicidal Thoughts: denies homicidal thoughts Hallucinations: no auditory hallucinations and no visual hallucinations Cognition: recent memory grossly intact, remote memory grossly intact and language grossly intact Estimated Intelligence: consistent with education level Insight: + limited insight Judgement: + limited judgement Vital Signs (Past 24 Hours) Last Vital Signs Temp 36.7 C 06/03/22 06:58 Pulse 98 H 06/03/22 06:59 Resp 16 06/03/22 06:58 BP 105/70 06/03/22 06:59 Pulse Ox 96 06/02/22 04:10 O2 Del Method 06/02/22 04:10 Results & Data ([facility]) Laboratory Results Laboratory Results - last 24 hr 06/03/22 08:05 Fasting Glucose 126 H Triglycerides 217 H Cholesterol 201 H LDL Cholesterol, Calc 124 VLDL Cholesterol, Calc 43 H HDL Cholesterol 34 Cholesterol/HDL Ratio 5.9 H Current Inpatient Medications Current Inpatient Medications: Current Inpatient Medications Acetaminophen (Acetaminophen 325 Mg Tab) 650 mg PO Q4H PRN PRN Reason: Headache or Minor Fever Stop: 07/02/22 06:44 Al Hydrox/Mg Hydrox/Simethicone (Aluminum/Magnesium Susp 30 Ml Udc) 30 ml PO Q4H PRN PRN Reason: GI Upset Stop: 07/02/22 06:44 Aripiprazole (Aripiprazole 10 Mg Tab) 20 mg PO DAILY [facility]RIK Stop: 07/03/22 08:59 Last Admin: 06/03/22 09:33 Dose: 20 mg Bismuth Subsalicylate (Bismuth Subsalicylate Liqd 236 Ml) 15 ml PO PRN PRN PRN Reason: Loose Stool Stop: 07/02/22 06:44 Hydroxyzine HCl (Hydroxyzine Hcl 25 Mg Tab) 50 mg PO HSZ PRN PRN Reason: Insomnia Stop: 07/02/22 06:44 Hydroxyzine HCl (Hydroxyzine Hcl 25 Mg Tab) 25 mg PO Q4H PRN PRN Reason: Anxiety Stop: 07/02/22 06:44 Lamotrigine (Lamotrigine 25 Mg Tab) 25 mg PO BID [facility] Stop: 07/02/22 20:59 Last Admin: 06/03/22 09:33 Dose: 25 mg Magnesium Hydroxide (Magnesium Hydroxide Susp 30 Ml Udc) 30 ml PO DAILY PRN PRN Reason: Constipation Stop: 07/02/22 06:44 Miscellaneous (Remove Nicoderm Patch) 1 each N/A DAILY@0859 [facility] Stop: 07/02/22 08:58 Last Admin: 06/03/22 09:32 Dose: 1 each Nicotine (Nicotine 14 Mg/24 Hr Patch) 14 mg TD QAM [facility] Stop: 07/02/22 08:59 Last Admin: 06/03/22 09:33 Dose: 14 mg Olanzapine (Olanzapine 5 Mg Tablet) 5 mg PO BID PRN PRN Reason: Anxiety/Agitation Stop: 07/02/22 09:59 Last Admin: 06/02/22 10:25 Dose: 5 mg Sodium Chloride (Sodium Chloride 0.65% Na Soln 45 Ml ([place])) 1 - 2 sprays NA PRN PRN PRN Reason: Nasal Dryness/Congestion Stop: 07/02/22 06:44 Trazodone HCl (Trazodone Hcl 50 Mg Tab) 50 mg PO HS [facility]RIK Stop: 07/02/22 21:59 Last Admin: 06/02/22 20:20 Dose: 50 mg Venlafaxine HCl (Venlafaxine Hcl Xr 75 Mg Capxr) 75 mg PO QAM [facility] Stop: 07/03/22 08:59 Last Admin: 06/03/22 09:33 Dose: 75 mg Venlafaxine HCl (Venlafaxine Hcl Xr 150 Mg Capxr) 150 mg PO QAM [facility] Stop: 07/03/22 08:59 Last Admin: 06/03/22 09:33 Dose: 150 mg Mental Health & Subst Abuse Tx Therapist Name of Therapist: None Jigman Name of Jigman: [facility] Post Discharge Appointments Primary Care Physician Name Of Family Doctor: Jolly Huff Partial or Psych Rehab Name of Partial or Psych Rehab: Skills
[2022-06-03] MEDS: traZODone HCL 50 MG TAB PO SCH (21:00)
[2022-06-04 08:20] LABS: Estimated Average Glucose 108 mg/dl; Hemoglobin A1C 5.4 % (4.5-5.6)
[2022-06-04] MEDS: ARIPiprazole 10 MG TAB PO SCH (09:12)
[2022-06-04] MEDS: VENLAFAXINE HCL XR 75 MG CAPXR PO SCH (09:12)
[2022-06-04] MEDS: lamoTRIgine 25 MG TAB PO SCH ×2 (09:12→20:36)
[2022-06-04] MEDS: VENLAFAXINE HCL XR 150 MG CAPXR PO SCH (09:13)
[2022-06-04] MEDS: NICOTINE 14 MG/24 HR PATCH TD SCH (09:20)
--- NOTE | 2022-06-04 13:52 | Psychiatric Progress Note ---
Date of Service June 04, 2022 Impression / Recommendations Impression The patient is a 22 year old with a history of schizoaffective disorder, post psychosis and substance use who was admitted for psychosis with disorganized behaviors and SI with attempt to grab a gun. Diagnostically consistent with acute exacerbation of psychosis likely due to schizoaffective disorder though of note she had a recent miscarriage in mid-April requiring medical D&C and hx of post- psychosis. Also potential component from substance-induced or substance-withdrawal psychosis as she has a history of synthetic/high THC cannabis oil use and UDS was positive for cannabis and MDMA. The patient is deemed unstable and requires psychiatric hospitalization for diagnostic clarification, safety and stabilization, medication management and development of further coping skills. MNPR due to acute psychosis, bizarre interactions with others, HI prior to admission 06/04/22: Remains very concrete, isolative but reality-based in interaction today. Reviewed results of HbA1c of 5.4% and normal. Discussed starting metformin for off-label use for antipsychotic-induced weight gain which has occurred since she started abilify and reviewed risks/benefits/alternatives and side effects including GI distress and she consents to starting this. (1) Schizoaffective disorder, bipolar type: (2) Cannabis use disorder: (3) Hyperlipidemia: Plan 06/04/22: Start metformin ER 500mg with dinner. Needs family meeting. 06/03/22: Reviewed fasting labs. Add-on HbA1c. Continue with current medications and tx plan. Consider metformin augmentation to reduce antipsychotic-induced weight gain/metabolic effects. 06/02/22: The patient was admitted to the [facility] ([facility]) on q15 min checks (behavioral with suicide precautions) for safety. The patient will participate in group, recreational, and milieu therapies and will be offered additional individual and family sessions as clinically appropriate. -Continue with prior to admission medications -Fasting labs in the morning -Add olanzapine 5mg BID prn for agitation/anxiety Inventory Assets Strengths: housing, outpatient supports, support from family Needs: safety and stabilization, medication adjustment, additional coping skills, increased outpatient services Suicide Risk Level Suicide Risk Level: Moderate (q15 min suicide checks) Suicide Risk Level Comments: Moderate due to depression with SI with plan prior to admission but now denying SI and feels safe in the hospital, able to safety contract and agrees to let nursing/staff know should they develop plan, intent or feel unable to remain safe. Risk Factors Assessment : Yes Do You Have Access To A Gun?: No Mental Health Diagnoses: Yes Substance Use Disorders: Yes Previous Attempt: Yes Previous Psychiatric Hospitalization: Yes Hopelessness: No Protective Factors Assessment Employed: No (Disabled) Supportive Family: Yes Good Rapport with Provider: Yes Interval History Identifying Information MIGUEL ANGEL QUINTERO is a 22-year-old F who currently lives in [place] alone, has a history of schizoaffective disorder, PTSD and polysubstance use disorder, and was admitted on 06/02/22 06:20 on a 302 involuntary commitment for acute psychosis and SI with attempts to grab a police officers gun to shoot herself. Chief Complaint "When can I call my mom to pick me up?". Review of Systems Sleep Information Total Hours of Sleep: 6.5 Meal Information Percent Meal Consumed - Breakfast: 70 Percent Meal Consumed - Lunch: 50 Percent Meal Consumed - Dinner: 100 Nutrition Comment: pt. asleep; meal dated, labeled and refrigerated Subjective Subjective Patient was seen & assessed and interval progress reviewed with treatment team nursing and social work. Reportedly may have yelled at another patient last night though she denies this. She continues to state her mood is "good" and remains eager to leave the hospital. Hypotensive this morning but she denies any dizziness/lightheadedness/palpitations. Remains very concrete and focused on scheduling family meeting. Denies any auditory hallucinations. Isolative with peers, mostly walking around the unit or spending time alone. Declined to have lunch with peers, preferring to sit alone in activity room. Physical Exam Psychiatric Orientation: alert and oriented x 3 Apperance: appropriately dressed and appropriately groomed Eye Contact: + fair eye contact Affect: + anxious affect Mood: + anxious mood Thought Process: + concrete thought process Thought Content: reality based without delusions Suicidal Thoughts: denies suicidal thoughts Homicidal Thoughts: denies homicidal thoughts Hallucinations: no auditory hallucinations and no visual hallucinations Cognition: recent memory grossly intact, remote memory grossly intact and language grossly intact Insight: + limited insight Judgement: + limited judgement Vital Signs (Past 24 Hours) Last Vital Signs Temp 37.2 C 06/04/22 06:46 Pulse 74 06/04/22 06:47 Resp 16 06/04/22 06:46 BP 93/61 L 06/04/22 06:47 Pulse Ox 96 06/02/22 04:10 O2 Del Method 06/02/22 04:10 Results & Data ([facility]) Laboratory Results Laboratory Results - last 24 hr 06/04/22 07:46 Estimat Average Glucose 108 Hemoglobin A1c 5.4 Current Inpatient Medications Current Inpatient Medications: Current Inpatient Medications Acetaminophen (Acetaminophen 325 Mg Tab) 650 mg PO Q4H PRN PRN Reason: Headache or Minor Fever Stop: 07/02/22 06:44 Al Hydrox/Mg Hydrox/Simethicone (Aluminum/Magnesium Susp 30 Ml Udc) 30 ml PO Q4H PRN PRN Reason: GI Upset Stop: 07/02/22 06:44 Aripiprazole (Aripiprazole 10 Mg Tab) 20 mg PO DAILY COUNTS INCLUDE 234 BEDS AT THE [facility] Stop: 07/03/22 08:59 Last Admin: 06/04/22 09:12 Dose: 20 mg Bismuth Subsalicylate (Bismuth Subsalicylate Liqd 236 Ml) 15 ml PO PRN PRN PRN Reason: Loose Stool Stop: 07/02/22 06:44 Hydroxyzine HCl (Hydroxyzine Hcl 25 Mg Tab) 50 mg PO HSZ PRN PRN Reason: Insomnia Stop: 07/02/22 06:44 Hydroxyzine HCl (Hydroxyzine Hcl 25 Mg Tab) 25 mg PO Q4H PRN PRN Reason: Anxiety Stop: 07/02/22 06:44 Lamotrigine (Lamotrigine 25 Mg Tab) 25 mg PO BID COUNTS INCLUDE 234 BEDS AT THE [facility] Stop: 07/02/22 20:59 Last Admin: 06/04/22 09:12 Dose: 25 mg Magnesium Hydroxide (Magnesium Hydroxide Susp 30 Ml Udc) 30 ml PO DAILY PRN PRN Reason: Constipation Stop: 07/02/22 06:44 Miscellaneous (Remove Nicoderm Patch) 1 each N/A DAILY@0859 COUNTS INCLUDE 234 BEDS AT THE [facility] Stop: 07/02/22 08:58 Last Admin: 06/04/22 09:20 Dose: Not Given Nicotine (Nicotine 14 Mg/24 Hr Patch) 14 mg TD QAM COUNTS INCLUDE 234 BEDS AT THE [facility] Stop: 07/02/22 08:59 Last Admin: 06/04/22 09:20 Dose: 14 mg Olanzapine (Olanzapine 5 Mg Tablet) 5 mg PO BID PRN PRN Reason: Anxiety/Agitation Stop: 07/02/22 09:59 Last Admin: 06/02/22 10:25 Dose: 5 mg Sodium Chloride (Sodium Chloride 0.65% Na Soln 45 Ml ([place])) 1 - 2 sprays NA PRN PRN PRN Reason: Nasal Dryness/Congestion Stop: 07/02/22 06:44 Trazodone HCl (Trazodone Hcl 50 Mg Tab) 50 mg PO HS [facility] Stop: 07/02/22 21:59 Last Admin: 06/03/22 21:00 Dose: Not Given Venlafaxine HCl (Venlafaxine Hcl Xr 75 Mg Capxr) 75 mg PO QAM [facility] Stop: 07/03/22 08:59 Last Admin: 06/04/22 09:12 Dose: 75 mg Venlafaxine HCl (Venlafaxine Hcl Xr 150 Mg Capxr) 150 mg PO QAM [facility] Stop: 07/03/22 08:59 Last Admin: 06/04/22 09:13 Dose: 150 mg Mental Health & Subst Abuse Tx Therapist Name of Therapist: None Layer Out Plate Glass Name of Layer Out Plate [facility]: [facility] Post Discharge Appointments Primary Care Physician Name Of Family Doctor: Jolly Huff Partial or Psych Rehab Name of Partial or Psych Rehab: Skills
[2022-06-04] MEDS: metFORMIN HCL ER 500 MG TABCR PO SCH (17:29)
[2022-06-04] MEDS: traZODone HCL 50 MG TAB PO SCH (21:05)
[2022-06-05] MEDS: ARIPiprazole 10 MG TAB PO SCH (08:56)
[2022-06-05] MEDS: VENLAFAXINE HCL XR 150 MG CAPXR PO SCH (08:57)
[2022-06-05] MEDS: VENLAFAXINE HCL XR 75 MG CAPXR PO SCH (08:57)
[2022-06-05] MEDS: lamoTRIgine 25 MG TAB PO SCH ×2 (08:57→21:06)
[2022-06-05] MEDS: NICOTINE 14 MG/24 HR PATCH TD SCH (09:03)
--- NOTE | 2022-06-05 13:24 | Psychiatric Progress Note ---
Date of Service June 05, 2022 Impression / Recommendations Impression The patient is a 22 year old with a history of schizoaffective disorder, post psychosis and substance use who was admitted for psychosis with disorganized behaviors and SI with attempt to grab a gun. Diagnostically consistent with acute exacerbation of psychosis likely due to schizoaffective disorder though of note she had a recent miscarriage in mid-April requiring medical D&C and hx of post- psychosis. Also potential component from substance-induced or substance-withdrawal psychosis as she has a history of synthetic/high THC cannabis oil use and UDS was positive for cannabis and MDMA. The patient is deemed unstable and requires psychiatric hospitalization for diagnostic clarification, safety and stabilization, medication management and development of further coping skills. MNPR due to difficulty tolerating extended interactions with others 06/05/22: Remains very concrete, isolative but reality-based and mood is euthymic with organized behaviors and no evidence for acute psychosis. Still with some insomnia. Tolerated metformin without any side effects. Needs referral for outpatient psychological testing/cognitive testing as suspect moderate intellectual disability. (1) Schizoaffective disorder, bipolar type: (2) Cannabis use disorder: (3) Hyperlipidemia: Plan 06/05/22: Continue with current medications and tx plan. 06/04/22: Start metformin ER 500mg with dinner. Needs family meeting. 06/03/22: Reviewed fasting labs. Add-on HbA1c. Continue with current medications and tx plan. Consider metformin augmentation to reduce antipsychotic-induced weight gain/metabolic effects. 06/02/22: The patient was admitted to the [facility] ([facility]) on q15 min checks (behavioral with suicide precautions) for safety. The patient will participate in group, recreational, and milieu therapies and will be offered additional individual and family sessions as clinically appropriate. -Continue with prior to admission medications -Fasting labs in the morning -Add olanzapine 5mg BID prn for agitation/anxiety Inventory Assets Strengths: housing, outpatient supports, support from family Needs: safety and stabilization, medication adjustment, additional coping skills, increased outpatient services Suicide Risk Level Suicide Risk Level: Moderate (q15 min suicide checks) Suicide Risk Level Comments: Moderate due to depression with SI with plan prior to admission but now denying SI and feels safe in the hospital, able to safety contract and agrees to let nursing/staff know should they develop plan, intent or feel unable to remain safe. Risk Factors Assessment : Yes Do You Have Access To A Gun?: No Mental Health Diagnoses: Yes Substance Use Disorders: Yes Previous Attempt: Yes Previous Psychiatric Hospitalization: Yes Hopelessness: No Protective Factors Assessment Employed: No (Disabled) Supportive Family: Yes Good Rapport with Provider: Yes Interval History Identifying Information MIGUEL ANGEL QUINTERO is a 22-year-old F who currently lives in [place] alone, has a history of schizoaffective disorder, PTSD and polysubstance use disorder, and was admitted on 06/02/22 06:20 on a 302 involuntary commitment for acute psychosis and SI with attempts to grab a police officers gun to shoot herself. Chief Complaint "Can I go home tomorrow?". Review of Systems Sleep Information Total Hours of Sleep: 4.5 Meal Information Percent Meal Consumed - Breakfast: 90 Percent Meal Consumed - Lunch: 50 Percent Meal Consumed - Dinner: 100 Nutrition Comment: pt. asleep; meal dated, labeled and refrigerated Subjective Subjective Patient was seen & assessed and interval progress reviewed with treatment team nursing and social work. She denies sleep difficulty but only 4.5 hours last night, organized behaviors. Denies any side effects from metformin. Mood is stable. Still very concrete. Reviewed importance of changing her code which she says her high risk case manager can help with. Physical Exam Psychiatric Orientation: alert and oriented x 3 Apperance: appropriately dressed and appropriately groomed Eye Contact: good eye contact Motor Behavior: no abnormal motor movements Speech: normal rate/rhythm/volume of speech Affect: euthymic affect Mood: no depressed mood Thought Process: + concrete thought process Thought Content: reality based without delusions Suicidal Thoughts: denies suicidal thoughts Homicidal Thoughts: denies homicidal thoughts Hallucinations: no auditory hallucinations and no visual hallucinations Cognition: recent memory grossly intact, remote memory grossly intact and language grossly intact Insight: + limited insight Judgement: + limited judgement Vital Signs (Past 24 Hours) Last Vital Signs Temp 36.4 C L 06/05/22 06:47 Pulse 98 H 06/05/22 06:48 Resp 16 06/05/22 06:47 BP 111/70 06/05/22 06:48 Pulse Ox 96 06/02/22 04:10 O2 Del Method 06/02/22 04:10 Results & Data (U) Current Inpatient Medications Current Inpatient Medications: Current Inpatient Medications Acetaminophen (Acetaminophen 325 Mg Tab) 650 mg PO Q4H PRN PRN Reason: Headache or Minor Fever Stop: 07/02/22 06:44 Al Hydrox/Mg Hydrox/Simethicone (Aluminum/Magnesium Susp 30 Ml Udc) 30 ml PO Q4H PRN PRN Reason: GI Upset Stop: 07/02/22 06:44 Aripiprazole (Aripiprazole 10 Mg Tab) 20 mg PO DAILY [facility]RIK Stop: 07/03/22 08:59 Last Admin: 06/05/22 08:56 Dose: 20 mg Bismuth Subsalicylate (Bismuth Subsalicylate Liqd 236 Ml) 15 ml PO PRN PRN PRN Reason: Loose Stool Stop: 07/02/22 06:44 Hydroxyzine HCl (Hydroxyzine Hcl 25 Mg Tab) 50 mg PO HSZ PRN PRN Reason: Insomnia Stop: 07/02/22 06:44 Hydroxyzine HCl (Hydroxyzine Hcl 25 Mg Tab) 25 mg PO Q4H PRN PRN Reason: Anxiety Stop: 07/02/22 06:44 Lamotrigine (Lamotrigine 25 Mg Tab) 25 mg PO BID [facility] Stop: 07/02/22 20:59 Last Admin: 06/05/22 08:57 Dose: 25 mg Magnesium Hydroxide (Magnesium Hydroxide Susp 30 Ml Udc) 30 ml PO DAILY PRN PRN Reason: Constipation Stop: 07/02/22 06:44 Metformin HCl (Metformin Hcl Er 500 Mg Tabcr) 500 mg PO QDD [facility] Stop: 07/04/22 17:44 Last Admin: 06/04/22 17:29 Dose: 500 mg Miscellaneous (Remove Nicoderm Patch) 1 each N/A DAILY@0859 [facility] Stop: 07/02/22 08:58 Last Admin: 06/05/22 08:58 Dose: Not Given Nicotine (Nicotine 14 Mg/24 Hr Patch) 14 mg TD QAM [facility] Stop: 07/02/22 08:59 Last Admin: 06/05/22 09:03 Dose: 14 mg Olanzapine (Olanzapine 5 Mg Tablet) 5 mg PO BID PRN PRN Reason: Anxiety/Agitation Stop: 07/02/22 09:59 Last Admin: 06/02/22 10:25 Dose: 5 mg Sodium Chloride (Sodium Chloride 0.65% Na Soln 45 Ml ([place])) 1 - 2 sprays NA PRN PRN PRN Reason: Nasal Dryness/Congestion Stop: 07/02/22 06:44 Trazodone HCl (Trazodone Hcl 50 Mg Tab) 50 mg PO HS [facility] Stop: 07/02/22 21:59 Last Admin: 06/04/22 21:05 Dose: 50 mg Venlafaxine HCl (Venlafaxine Hcl Xr 75 Mg Capxr) 75 mg PO QAM [facility] Stop: 07/03/22 08:59 Last Admin: 06/05/22 08:57 Dose: 75 mg Venlafaxine HCl (Venlafaxine Hcl Xr 150 Mg Capxr) 150 mg PO QAM [facility] Stop: 07/03/22 08:59 Last Admin: 06/05/22 08:57 Dose: 150 mg Mental Health & Subst Abuse Tx Therapist Name of Therapist: None [facility] [employer] Name of Irrigator [facility] [employer]: [facility] Salas Post Discharge Appointments Primary Care Physician Name Of Family Doctor: Jolly Huff Partial or Psych Rehab Name of Partial or Psych Rehab: Skills
[2022-06-05] MEDS: metFORMIN HCL ER 500 MG TABCR PO SCH (17:42)
[2022-06-05] MEDS: traZODone HCL 50 MG TAB PO SCH (21:06)
[2022-06-06] MEDS: ARIPiprazole 10 MG TAB PO SCH (08:41)
[2022-06-06] MEDS: lamoTRIgine 25 MG TAB PO SCH (08:42)
[2022-06-06] MEDS: VENLAFAXINE HCL XR 75 MG CAPXR PO SCH (08:42)
[2022-06-06] MEDS: VENLAFAXINE HCL XR 150 MG CAPXR PO SCH (08:42)
[2022-06-06] MEDS: NICOTINE 14 MG/24 HR PATCH TD SCH (08:42)
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
== END 2022-06-06 13:36 | disposition home or self-care (01) | DRG 885 ==
LOC: ED 22:08 → 3S 06-02 06:04 → SUATTDRO 06-02 06:20 → 3S 06-02 06:20
DX: E78.5 Hyperlipidemia, unspecified; F12.90 Cannabis use, unspecified, uncomplicated; F71 Moderate intellectual disabilities; F25.0 Schizoaffective disorder, bipolar type; F53.1 Puerperal psychosis; F17.210 Nicotine dependence, cigarettes, uncomplicated; Z79.899 Other long term (current) drug therapy